=== PATIENT | male | born 1935 | race Caucasian/White ===

== ENCOUNTER 2020-04-19 13:16 | Inpatient (IN) | payer MEDICARE, BC, OTHER ==
--- NOTE | 2020-04-19 13:39 | EDM.PDOC ---
ED HPI GENERAL MEDICAL PROBLEM - General Chief Complaint: General Stated Complaint: [facility] Time Seen by Provider: 04/19/20 13:35 - History of Present Illness INITIAL COMMENTS - FREE TEXT/NARRATIVE: 84-year-old male presents the emergency room weakness. He is brought in by EMS. The patient's noticed him not walking as well as he normally does on Wednesday on Wednesday he lost his balance and fell no apparent injury from that but he has been weak and has had difficulty with ambulation since Wednesday. The patient has a history of a stroke with persistent left-sided weakness. He is got a left- sided foot drop and wears a brace for this. It sounds like the weakness seems to be more on the right side over this last week. Patient has not had any chest pain breathing difficulties or shortness of breath. - Related Data Allergies Allergy/AdvReac Type Severity Reaction Status Date / Time No Known Allergies Allergy Verified 04/19/20 13:28 Home Meds: Home Meds Aspirin [Aspir 81] 81 mg PO DAILY 04/19/20 [History] Furosemide 40 mg PO DAILY 04/19/20 [History] Glimepiride 2 mg PO DAILY 04/19/20 [History] Oxybutynin 5 mg PO DAILY 04/19/20 [History] atorvaSTATin [Lipitor] 40 mg PO BEDTIME 04/19/20 [History] metFORMIN [Glucophage] 500 mg PO BIDMEALS 04/19/20 [History] Past Medical History HEENT History: Reports: Impaired Vision Respiratory History: Reports: None Gastrointestinal History: Reports: None Genitourinary History: Reports: None Musculoskeletal History: Reports: Other (See Below) Other Musculoskeletal History: Pt has weakness to the left side after a stroke 9 years ago. Pt wears a leg brace. Neurological History: Reports: CVA Psychiatric History: Reports: None Endocrine/Metabolic History: Reports: Diabetes, Type II Hematologic History: Reports: None Immunologic History: Reports: None Oncologic (Cancer) History: Reports: None Dermatologic History: Reports: None - Infectious Disease History Infectious Disease History: Reports: None - Past Surgical History Cardiovascular Surgical History: Reports: Other (See Below) Other Cardiovascular Surgeries/Procedures: Pt reports having open heart surgery after his stroke 9 years ago, unsure of why. Social & Family History - Tobacco Use Smoking Status *Q: Never Smoker - Caffeine Use Caffeine Use: Reports: None - Recreational Drug Use Recreational Drug Use: No ED ROS GENERAL - Review of Systems Review Of Systems: See Below Constitutional: Reports: Weakness. Denies: Fever, Chills, Malaise HEENT: Reports: No Symptoms Respiratory: Reports: No Symptoms Cardiovascular: Reports: No Symptoms Endocrine: Reports: No Symptoms GI/Abdominal: Reports: No Symptoms : Reports: No Symptoms Neurological: Reports: Gait Disturbance, Other (Increased weakness now on the right side). Denies: Confusion, Dizziness, Headache ED EXAM, GENERAL - Physical Exam Exam: See Below Exam Limited By: No Limitations General Appearance: Alert, No Apparent Distress, Other (He appears to have a irregular heartbeat on the monitor he is on supplemental oxygen as his O2 was 86% on room air he does not use oxygen at home) Eye Exam: Bilateral Eye: Normal Inspection Ears: Normal External Exam, Normal Canal, Hearing Grossly Normal, Normal TMs Nose: Normal Inspection, Normal Mucosa, No Blood Throat/Mouth: Normal Inspection, Normal Lips, Normal Oropharynx, Normal Voice, Other (Semi-dry mucosa). No: Normal Teeth (Is missing all his lower teeth) Head: Atraumatic, Normocephalic Respiratory/Chest: No Respiratory Distress, Lungs Clear, Normal Breath Sounds Cardiovascular: No Edema, No Murmur, Irregularly Irregular GI/Abdominal: Normal Bowel Sounds, Soft, Non-Tender Back Exam: Normal Inspection. No: CVA Tenderness (L), CVA Tenderness (R) Extremities: Other (He has obvious weakness on his left side and the foot drop however he can hold his leg up against gravity several inches off the bed and resist me trying to push it down on the right side he can raise his leg a little better than the left side and can hold some resistance to me trying to push it down upper extremities are equivocal) Neurological: Alert, Oriented, Normal Cognition, Other (He has an obvious ulnar drift on the left not on the right) Psychiatric: Normal Affect, Normal Mood Skin Exam: Warm, Dry, Intact EKG INTERPRETATION EKG Date: 04/19/20 Rhythm: A-Fib Albia: LAD-Left Albia Deviation P-Wave: Absent QRS: Other (Interventricular conduction delay inferior Q waves) ST-T: Other (Nonspecific nondiagnostic changes) QT: Normal Comparison: NA - No Prior EKG EKG Interpretation Comments: Abnormal Course - Vital Signs Last Recorded V/S: Last Vital Signs Temp 37.1 C 04/19/20 13:22 Pulse 75 04/19/20 13:22 Resp 20 04/19/20 13:22 BP 124/68 04/19/20 13:22 Pulse Ox 86 L 04/19/20 13:22 - Orders/Labs/Meds Orders: Active Orders 24 hr Category Date Time Status EKG Documentation Completion [RC] STAT Care 04/19/20 13:51 Active CORONAVIRUS COVID-19 TAVON [MOLEC] Stat Lab 04/19/20 17:45 Ordered UA RFX JESSEE AND CULT IF INDIC [URIN] Stat Lab 04/19/20 13:51 Ordered Lactated Ringers [Ringers, Lactated] 1,000 ml Med 04/19/20 17:30 Active IV ASDIRECTED Medication Orders Lactated Ringer's (Ringers, Lactated) 1,000 mls @ 100 mls/hr IV ASDIRECTED [facility] Labs: Laboratory Tests 04/19/20 04/19/20 04/19/20 Range/Units 14:22 14:22 14:22 WBC 4.47 (4.23-9.07) K/mm3 RBC 4.77 (4.63-6.08) M/mm3 Hgb 15.2 (13.7-17.5) gm/dl Hct 46.5 (40.1-51.0) % MCV 97.5 H (79.0-92.2) fl MCH 31.9 (25.7-32.2) pg MCHC 32.7 (32.2-35.5) g/dl RDW Std Deviation 49.9 H (35.1-43.9) fL Plt Count 65 L (163-337) K/mm3 MPV 9.4 (9.4-12.3) fl Neut % (Auto) 67.4 (34.0-67.9) % Lymph % (Auto) 12.5 L (21.8-53.1) % Slope % (Auto) 19.5 H (5.3-12.2) % Eos % (Auto) 0.2 L (0.8-7.0) Baso % (Auto) 0.2 (0.1-1.2) % Neut # (Auto) 3.01 (1.78-5.38) K/mm3 Lymph # (Auto) 0.56 L (1.32-3.57) K/mm3 Slope # (Auto) 0.87 H (0.30-0.82) K/mm3 Eos # (Auto) 0.01 L (0.04-0.54) K/mm3 Baso # (Auto) 0.01 (0.01-0.08) K/mm3 Manual Slide Review Abnormal smear PT 11.1 (9.7-12.0) SECONDS INR 1.02 APTT 28 (22-31) SECONDS Sodium 141 (136-145) mEq/L Potassium 4.6 (3.5-5.1) mEq/L Chloride 103 (98-107) mEq/L Carbon Dioxide 27 (21-32) mEq/L Anion Gap 15.6 H (5-15) BUN 39 H (7-18) mg/dL Creatinine 2.5 H (0.7-1.3) mg/dL Est Cr Clr Drug Dosing TNP Estimated GFR (MDRD) 25 (>60) mL/min BUN/Creatinine Ratio 15.6 (14-18) Glucose 172 H (83-115) mg/dL Calcium 8.9 (8.5-10.1) mg/dL Total Bilirubin 0.5 (0.2-1.0) mg/dL AST 43 H (15-37) U/L ALT 44 (16-63) U/L Alkaline Phosphatase 121 H (46-116) U/L Troponin I < 0.017 (0.00-0.056) ng/mL Total Protein 7.7 (6.4-8.2) g/dl Albumin 3.3 L (3.4-5.0) g/dl Globulin 4.4 gm/dL Albumin/Globulin Ratio 0.8 L (1-2) Meds: Medications Generic Name Dose Route Start Last Admin Trade Name Freq PRN Reason Stop Dose Admin Lactated Ringer's 1,000 mls @ 100 mls/hr 04/19/20 17:30 Ringers, Lactated IV ASDIRECTED [facility] - Re-Assessments/Exams Free Text/Narrative Re-Assessment/Exam: 04/19/20 14:10 New onset, starting Wednesday, weakness perceived to be on the right side. Fall on Wednesday no head injury thought to be due to losing his balance. No improvement on now right-sided weakness. We will check a head CT his pulse seems irregular it is unclear if he is got regular P waves on the monitor we will check an EKG. Check routine labs. 04/19/20 14:57 CT of the head was done and this shows some age-related changes but also shows a possible small subacute infarct in the right posterior parietal region. No evidence of intracranial hemorrhage or other acute finding suspected we will check a MRI of the brain and MRA if his GFR allows we might check cervical MRA. Chest x-ray does not reveal any problem. It is unclear to me why he is requiring a little bit of oxygen at this point. EKG does show A. fib he does not have a prior history of this. 04/19/20 17:42 MRI of the brain shows no diffusion abnormalities no evidence to suggest acute or subacute infarct. MRA of the brain shows mild atheromatous irregularity with slight narrowing on the left side otherwise no abnormalities. I did discuss this with Dr. 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 With the A. fib he recommends anticoagulation if this can safely be done. I discussed the patient's case with Dr. Zamora. Who agrees to excepting the patient for hydration therapy and further evaluation for his weakness patient will go to [facility] telemetry. Departure - Departure Time of Disposition: 17:41 Disposition: Refer to Observation Clinical Impression: Weakness, New onset atrial fibrillation, Acute on chronic renal insufficiency - Discharge Information Referrals: Tr Jones MD [Primary Care Provider] - Forms: ED Department Discharge Sepsis Event Note (ED) - Evaluation Sepsis Screening Result: No Definite Risk - Focused Exam Vital Signs: Vital Signs Temp Pulse Resp BP Pulse Ox 04/19/20 13:22 37.1 C 75 20 124/68 86 L - My Orders Last 24 Hours: My Active Orders 04/19/20 13:51 EKG Documentation Completion [RC] STAT UA RFX JESSEE AND CULT IF INDIC [URIN] Stat 04/19/20 17:30 Lactated Ringers [Ringers, Lactated] 1,000 ml IV ASDIRECTED 04/19/20 17:45 CORONAVIRUS COVID-19 TAVON [MOLEC] Stat - Assessment/Plan Last 24 Hours: My Active Orders 04/19/20 13:51 EKG Documentation Completion [RC] STAT UA RFX JESSEE AND CULT IF INDIC [URIN] Stat 04/19/20 17:30 Lactated Ringers [Ringers, Lactated] 1,000 ml IV ASDIRECTED 04/19/20 17:45 CORONAVIRUS COVID-19 TAVON [MOLEC] Stat
--- NOTE | 2020-04-19 14:22 | CR ---
Chest: Portable view of the chest was obtained. Comparison: Prior chest x-ray of 11/09/18. Heart size and mediastinum are within normal limits for portable technique. Lungs are clear with no acute parenchymal change. Previous sternotomy is noted. Mild scattered degenerative change partially visualized within the spine. Impression: 1. Findings as noted above. 2. Nothing acute is appreciated on portable chest x-ray. Diagnostic code #2 This report was dictated in MDT
--- NOTE | 2020-04-19 14:42 | CT ---
Head CT Technique: Multiple axial sections through the brain were obtained. Intravenous contrast was not utilized. Comparison: Prior head CT study of 09/17/11. Findings: Diminished density is noted within the posterior right parietal region. This could represent a subacute infarct. Other old infarct is noted within the right parietal convexity. Additional old white matter infarct is noted adjacent to the frontal horn of the right posterior frontal region. Diminished density is noted within the periventricular white matter compatible with small vessel ischemic demyelination change. Ventricles are moderately dilated. Sulci over the convexities are also prominent. No evidence of intracranial hemorrhage. No midline shift or mass-effect is seen. Bone window settings were reviewed. No acute calvarial finding is seen. Visualized mastoid sinuses and visualized paranasal sinuses show nothing acute. Impression: 1. Senescent change as noted above. 2. Possible small subacute infarct within the right posterior parietal region. 3. No intracranial hemorrhage or other acute finding is appreciated. Diagnostic code #3 This report was dictated in MDT
--- NOTE | 2020-04-19 16:11 | MR ---
MRI angiogram of brain Technique: [id number] MR angiogram sequence was obtained centered to the [place]. Multiple MIP images were obtained in multiple projections. Findings: Distal vertebral arteries and basilar artery are patent. Posterior cerebral arteries appear patent. Carotid siphon is patent. Middle and anterior cerebral arteries are patent. No focal stenosis or occlusion is seen. No discrete aneurysm is appreciated. There is mild irregularity within both A1 segments. Slight narrowing of the left A1 segment is seen. Impression: 1. A1 segments show mild atheromatous irregularity with slight narrowing on the left side. 2. Other portions of the MR angiogram study of the brain appear within normal limits. Diagnostic code #2 This report was dictated in MDT
--- NOTE | 2020-04-19 16:41 | MR ---
MRI brain Technique: T1 sagittal; T1, T2, T2 FLAIR and diffusion axial; T1 and T2 gradient echo coronal images were obtained. Comparison: Prior head CT study performed earlier on the same day as well as previous MRI brain exam of 10/20/18. Findings: Ventricles along the basal cisterns and sulci over convexities are moderately prominent. Old infarct is noted next to the right frontal horn of the lateral ventricle within the white matter. Old infarct is noted within the upper right parietal region. Diffuse increased signal is seen on the FLAIR sequence within the periventricular white matter which appears fairly stable from prior exam compatible with small vessel ischemic demyelination change. No new areas of abnormal signal are seen. No midline shift or mass-effect is seen. Normal signal void is seen within the major cerebral arteries within the skull base. No acute diffusion abnormalities are seen. Impression: 1. Senescent change as noted above which is stable from prior MRI of 10/20/18. 2. No acute diffusion abnormalities are seen. No evidence to suggest acute or subacute infarct. Diagnostic code #2 This report was dictated in MDT
[2020-04-19] MEDS: Lactated Ringers 1,000 ML IV SCH (17:51)
--- NOTE | 2020-04-19 20:25 | PCM.HP.2 ---
H&P History of Present Illness - General Date of Service: 04/19/20 Admit Problem/Dx: Admission Diagnosis/Problem Admission Diagnosis/Problem Weakness - History of Present Illness Initial Comments - Free Text/Narative: 84-year-old male who started developing weakness and shortness of breath approximately 1 week ago presents the emergency department with increasing weakness. Earlier this week he started having difficulty with ambulation per his . Patient states that on Wednesday he lost his balance and fell. Since Wednesday or Wednesday he has had a poor oral intake and has not been drinking or eating as much. He states he usually gets up twice a night to urinate and did not get up last night to urinate. Patient also states he usually drinks 2 beers a day but his last alcoholic beverage was 6 days ago. 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 Patient denies any chest pain or cough. He stopped tobacco 35 years ago. He has no history of atrial fibrillation. He did require oxygen following his CVA in 2010. In the emergency department patient was found to be in atrial fibrillation with a ventricular rate in the 70s. CT of the head showed possible small subacute infarct within the right posterior parietal region. A subsequent MRI of the brain and MRA showed no acute diffusion abnormalities. Old infarct was noted within the upper right parietal region. No evidence to suggest acute or subacute infarct. A1 segments show mild atheromatous irregularity and slight narrowing on the left side. In the emergency department: Blood pressure was 124/68 with respiratory rate of 20 and a pulse of 75. Pulse ox was also noted to be 86% on presentation. Initial labs: WBC 4.47, hemoglobin 15.2, platelet count 65,000. PT 11.1, INR 1.02, APTT 28. Sodium 141, potassium 4.6, chloride 103, bicarb 27, anion gap 15.6, BUN 39, creatinine 2.5, estimated GFR 25, troponin I less than 0.017, albumin 3.3. - Related Data Allergies/Adverse Reactions: Allergies Allergy/AdvReac Type Severity Reaction Status Date / Time No Known Allergies Allergy Verified 04/19/20 18:57 Home Medications: Home Meds Aspirin [Aspir 81] 81 mg PO DAILY 04/19/20 [History] Furosemide 40 mg PO DAILY 04/19/20 [History] Glimepiride 2 mg PO DAILY 04/19/20 [History] Oxybutynin 5 mg PO DAILY 04/19/20 [History] atorvaSTATin [Lipitor] 40 mg PO BEDTIME 04/19/20 [History] metFORMIN [Glucophage] 500 mg PO BIDMEALS 04/19/20 [History] Past Medical History HEENT History: Reports: Cataract, Impaired Vision Other HEENT History: wears glasses, upper dentures Respiratory History: Reports: SOB Gastrointestinal History: Reports: None Genitourinary History: Reports: None Musculoskeletal History: Reports: Other (See Below) Other Musculoskeletal History: Pt has weakness to the left side after a stroke 9 years ago. Pt wears a leg brace. Neurological History: Reports: CVA Psychiatric History: Reports: None Endocrine/Metabolic History: Reports: Diabetes, Type II Other Endocrine/Metabolic History: check blood sugar once a day Hematologic History: Reports: None Immunologic History: Reports: None Oncologic (Cancer) History: Reports: None Dermatologic History: Reports: None - Infectious Disease History Infectious Disease History: Reports: Measles, Mumps - Past Surgical History HEENT Surgical History: Reports: Cataract Surgery Cardiovascular Surgical History: Reports: Other (See Below) Other Cardiovascular Surgeries/Procedures: Pt reports having open heart surgery after his stroke 9 years ago, unsure of why. Social & Family History - Family History Family Medical History: Noncontributory - Tobacco Use Smoking Status *Q: Former Smoker Used Tobacco, but Quit: Yes Month/Year Tobacco Last Used: 1989 - Caffeine Use Caffeine Use: Reports: None - Recreational Drug Use Recreational Drug Use: No H&P Review of Systems - Review of Systems: Review Of Systems: Comprehensive ROS is negative, except as noted in HPI. Exam - Exam Exam: See Below - Vital Signs Vital Signs: Last Vital Signs Temp 98.7 F 04/19/20 13:22 Pulse 64 04/19/20 19:17 Resp 20 04/19/20 19:17 BP 124/51 L 04/19/20 19:17 Pulse Ox 90 L 04/19/20 19:17 Weight: 88.496 kg - Exam Quality Assessment: Supplemental Oxygen General: Alert, Oriented, 4 HEENT: Conjunctiva Clear, Hearing Intact. No: Mucosa Moist & [place] (dry) Neck: Supple, Trachea Midline, 2 Lungs: Wheezing (Right lower lung). No: Normal Respiratory Effort (Pursed lip breathing with slight increase in respiratory rate), Crackles, Rales Cardiovascular: Irregular Rhythm GI/Abdominal Exam: Normal Bowel Sounds, Soft, No Organomegaly, No Distention, No Abnormal Bruit, No Mass, Tender (Mild left lower quadrant tenderness) Extremities: Normal Inspection, Normal Range of Motion, Non-Tender, No Pedal Edema, Normal Capillary Refill Peripheral Pulses: 1+: Posterior Tibial (L), Posterior Tibial (R), Dorsalis Pedis (L), Dorsalis Pedis (R) Skin: Warm, Dry, Intact Neuro Extensive - Mental Status: Alert, Normal Cognition, Memory Intact Neuro Extensive - Motor, Sensory, Reflexes: 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) Psychiatric: Alert, Normal Affect, Normal Mood - Patient Data Lab Results Last 24 hrs: Laboratory Results - last 24 hr 04/19/20 04/19/20 04/19/20 Range/Units 14:22 14:22 14:22 WBC 4.47 (4.23-9.07) K/mm3 RBC 4.77 (4.63-6.08) M/mm3 Hgb 15.2 (13.7-17.5) gm/dl Hct 46.5 (40.1-51.0) % MCV 97.5 H (79.0-92.2) fl MCH 31.9 (25.7-32.2) pg MCHC 32.7 (32.2-35.5) g/dl RDW Std Deviation 49.9 H (35.1-43.9) fL Plt Count 65 L (163-337) K/mm3 MPV 9.4 (9.4-12.3) fl Neut % (Auto) 67.4 (34.0-67.9) % Lymph % (Auto) 12.5 L (21.8-53.1) % [place] % (Auto) 19.5 H (5.3-12.2) % Eos % (Auto) 0.2 L (0.8-7.0) Baso % (Auto) 0.2 (0.1-1.2) % Neut # (Auto) 3.01 (1.78-5.38) K/mm3 Lymph # (Auto) 0.56 L (1.32-3.57) K/mm3 [place] # (Auto) 0.87 H (0.30-0.82) K/mm3 Eos # (Auto) 0.01 L (0.04-0.54) K/mm3 Baso # (Auto) 0.01 (0.01-0.08) K/mm3 Manual Slide Review Abnormal smear PT 11.1 (9.7-12.0) SECONDS INR 1.02 APTT 28 (22-31) SECONDS Sodium 141 (136-145) mEq/L Potassium 4.6 (3.5-5.1) mEq/L Chloride 103 (98-107) mEq/L Carbon Dioxide 27 (21-32) mEq/L Anion Gap 15.6 H (5-15) BUN 39 H (7-18) mg/dL Creatinine 2.5 H (0.7-1.3) mg/dL Est Cr Clr Drug Dosing TNP Estimated GFR (MDRD) 25 (>60) mL/min BUN/Creatinine Ratio 15.6 (14-18) Glucose 172 H (83-115) mg/dL Calcium 8.9 (8.5-10.1) mg/dL Total Bilirubin 0.5 (0.2-1.0) mg/dL AST 43 H (15-37) U/L ALT 44 (16-63) U/L Alkaline Phosphatase 121 H (46-116) U/L Troponin I < 0.017 (0.00-0.056) ng/mL Total Protein 7.7 (6.4-8.2) g/dl Albumin 3.3 L (3.4-5.0) g/dl Globulin 4.4 gm/dL Albumin/Globulin Ratio 0.8 L (1-2) COVID-19 ([place]) (NEGATIVE) 04/19/20 Range/Units 17:54 WBC (4.23-9.07) K/mm3 RBC (4.63-6.08) M/mm3 Hgb (13.7-17.5) gm/dl Hct (40.1-51.0) % MCV (79.0-92.2) fl MCH (25.7-32.2) pg MCHC (32.2-35.5) g/dl RDW Std Deviation (35.1-43.9) fL Plt Count (163-337) K/mm3 MPV (9.4-12.3) fl Neut % (Auto) (34.0-67.9) % Lymph % (Auto) (21.8-53.1) % [place] % (Auto) (5.3-12.2) % Eos % (Auto) (0.8-7.0) Baso % (Auto) (0.1-1.2) % Neut # (Auto) (1.78-5.38) K/mm3 Lymph # (Auto) (1.32-3.57) K/mm3 [place] # (Auto) (0.30-0.82) K/mm3 Eos # (Auto) (0.04-0.54) K/mm3 Baso # (Auto) (0.01-0.08) K/mm3 Manual Slide Review PT (9.7-12.0) SECONDS INR APTT (22-31) SECONDS Sodium (136-145) mEq/L Potassium (3.5-5.1) mEq/L Chloride (98-107) mEq/L Carbon Dioxide (21-32) mEq/L Anion Gap (5-15) BUN (7-18) mg/dL Creatinine (0.7-1.3) mg/dL Est Cr Clr Drug Dosing Estimated GFR (MDRD) (>60) mL/min BUN/Creatinine Ratio (14-18) Glucose (83-115) mg/dL Calcium (8.5-10.1) mg/dL Total Bilirubin (0.2-1.0) mg/dL AST (15-37) U/L ALT (16-63) U/L Alkaline Phosphatase (46-116) U/L Troponin I (0.00-0.056) ng/mL Total Protein (6.4-8.2) g/dl Albumin (3.4-5.0) g/dl Globulin gm/dL Albumin/Globulin Ratio (1-2) COVID-19 ([place]) Negative (NEGATIVE) Result Diagrams: 04/20/20 05:23 04/20/20 05:23 EKG INTERPRETATION EKG Date: 04/19/20 Rhythm: A-Fib Rate (Beats/Min): 76 P-Wave: Absent QRS: Other (Q waves in leads II, III and aVF. Also Q waves in leads V1 and V2. Poor R wave progression with deep S waves in V5 and V6.) ST-T: Normal QT: Normal EKG Interpretation Comments: Atrial fibrillation with old inferior and anterior infarcts. Sepsis Event Note - Evaluation Sepsis Screening Result: No Definite Risk - Focused Exam Vital Signs: Vital Signs Temp Pulse Pulse Resp BP BP Pulse Ox 04/19/20 19:17 64 20 124/51 L 90 L 04/19/20 13:22 98.7 F 75 20 124/68 86 L Date Exam was Performed: 04/20/20 Time Exam was Performed: 10:16 Problem List Initiated/Reviewed/Updated: Yes Orders Last 24hrs: Active Orders 24 hr Category Date Time Status Patient Status [ADT] Routine ADT 04/19/20 18:27 Active Blood Glucose Check, Bedside [RC] QIDACANDBED Care 04/19/20 20:17 Ordered Oxygen Therapy [RC] PRN Care 04/19/20 20:14 Ordered Up With Assistance [RC] ASDIRECTED Care 04/19/20 20:14 Ordered VTE/DVT Education [RC] PER UNIT ROUTINE Care 04/19/20 20:14 Ordered Vital Signs [RC] Q4H Care 04/19/20 20:14 Ordered OT Evaluation and Treatment [CONS] Routine Cons 04/19/20 20:14 Ordered PT Evaluation and Treatment [CONS] Routine Cons 04/19/20 20:14 Ordered Consistent Carbohydrate Diet [DIET] Diet 04/19/20 Dinner Ordered Echo Comp wo Cont [US] Routine Exams 04/22/20 Ordered CBC WITH AUTO DIFF [HEME] AM Lab 04/20/20 05:11 Ordered COMPREHENSIVE METABOLIC PN,CMP [CHEM] AM Lab 04/20/20 05:11 Ordered D Dimer [D-DIMER QUANTITATIVE] [COAG] Routine Lab 04/19/20 20:23 Ordered GLYCOSYLATED HEMOGLOBIN,HGBA1C [CHEM] AM Lab 04/20/20 05:11 Ordered LIPID PANEL [CHEM] AM Lab 04/20/20 05:11 Ordered MAGNESIUM [CHEM] AM Lab 04/20/20 05:11 Ordered PRO B-TYPE NATRIUR PEPT,BNPPRO [CHEM] Routine Lab 04/19/20 20:23 Ordered TSH [CHEM] AM Lab 04/20/20 05:11 Ordered UA RFX JESSEE AND CULT IF INDIC [URIN] Stat Lab 04/19/20 13:51 Ordered Acetaminophen [Tylenol] Med 04/19/20 20:14 Ordered 650 mg PO Q4H PRN Apixaban [Eliquis] Med 04/19/20 21:00 Ordered 2.5 mg PO BID Aspirin [Halfprin] Med 04/20/20 09:00 Ordered 81 mg PO DAILY Insulin Lispro [HumaLOG] Med 04/19/20 22:00 Ordered See Protocol SUBCUT QIDACANDBED Lactated Ringers [Ringers, Lactated] 1,000 ml Med 04/19/20 17:30 Active IV ASDIRECTED Oxybutynin Med 04/20/20 09:00 Ordered 5 mg PO DAILY atorvaSTATin Med 04/19/20 21:00 Ordered 40 mg PO BEDTIME Resuscitation Status Routine Resus Stat 04/19/20 20:14 Ordered Medication Orders Acetaminophen (Tylenol) 650 mg PO Q4H PRN PRN Reason: Pain (Mild 1-3)/fever Apixaban (Eliquis) 2.5 mg PO BID B[facility] Aspirin (Halfprin) 81 mg PO DAILY [facility] Lactated Ringer's (Ringers, Lactated) 1,000 mls @ 100 mls/hr IV ASDIRECTED BECKIE Last Admin: 04/19/20 17:51 Dose: 100 mls/hr Documented by: FOUZIA Insulin Human Lispro (Humalog) 0 unit SUBCUT QIDACANDBED [facility]; Protocol Non-Formulary Medication (Atorvastatin) 40 mg PO BEDTIME BECKIE Oxybutynin Chloride (Oxybutynin) 5 mg PO DAILY [facility] Assessment/Plan Comment:: Assessment * 84-year-old male with increasing weakness and new onset atrial fibrillation. * Increasing weakness over the last week with shortness of breath. * Ventricular rate is controlled in the 70s. * On no rate controlling medications. * Positive d-dimer * D-dimer 7.15 * Possible VTE versus pulmonary embolism * Significant renal dysfunction making CTA relatively contraindicated * Elevated proBNP * proBNP 838 * No history of heart failure or hypertension * Pulmonary exam shows wheezes without rales or crackles * Chest x-ray shows a normal heart size and lungs are clear * Patient is on furosemide 40 mg daily per history for unknown reason * Hypoxemia * History of smoking with tobacco cessation approximately 35 years ago. 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 * Likely 1 of the causes of his increasing weakness over the last week. * On exam patient did breathe with pursed lips. * Requiring 2-3 L nasal cannula. * Acute renal injury * I do not have old records available to me, but emergency department provider stated that his records from [place] showed a creatinine of 1.2- 1.8 * Likely multifactorial including prerenal disease * Possibly artificially increasing proBNP and d-dimer * Started on IV fluids in the emergency department * Thrombocytopenia unknown cause * Patient states he does not know of any history of having low platelets * Platelets on admission 65,000 * Significant concern for pulmonary embolism * Patient does have hypoxemia with shortness of breath and a positive d- dimer. * CTA was not done in the emergency department because of concerns of worsening his renal insufficiency * Type 2 diabetes * On oral meds including metformin and glimepiride * Patient states morning blood sugars are usually in the low 100s Chronic: Left-sided lower extremity weakness secondary to a stroke in 2010, urinary incontinence Plan * Admit for observation with telemetry * FiO2 to keep SPO2 at 90% or greater * Continue IV fluids LR at 100 mL an hour * Start heparin drip. Give 5000 units IV bolus. * Patient does have thrombocytopenia of 65,000. At this time concern for VTE or PE is very high and risk of bleeding is outweighed by the risk of progressing clot. * Monitor PTT closely every 4 hours and monitor closely for bleeding. * When renal function improves will proceed with CTA * Echocardiogram ordered for Wednesday. * Follow CBC, CMP, magnesium * Hold glimepiride and metformin. * Fingerstick blood sugars 4 times daily * Sliding scale insulin, low-dose * Continue aspirin 81 mg daily * CODE STATUS: Full code - Mortality Measure Prognosis:: Poor
[2020-04-19] MEDS ORDERED: Apixaban 2.5 MG Tab PO SCH (21:00)
[2020-04-19] MEDS ORDERED: ATORVASTATIN 40 MG PO SCH (21:00)
[2020-04-19] MEDS ORDERED: Albuterol 0.083% 2.5 MG/3 ML Neb Soln NEB PRN (21:14)
[2020-04-19] MEDS ORDERED: Albuterol/Ipratropium 3.0-0.5 MG/3 ML Neb Soln NEB ONE (21:17)
[2020-04-19] MEDS ORDERED: Heparin Sodium 5,000 Units/ML Vial IVPUSH ONE (21:31)
[2020-04-19] MEDS ORDERED: Heparin Sodium/D5W 25,000 UNITS/500 ML BAG IV SCH (21:45)
[2020-04-19] MEDS: Insulin Lispro 100 Units/ML 3 ML Vial SUBCUT SCH (22:08)
[2020-04-20] MEDS: Lactated Ringers 1,000 ML IV SCH ×2 (05:01→13:26)
[2020-04-20] MEDS: Albuterol/Ipratropium 3.0-0.5 MG/3 ML Neb Soln NEB SCH ×3 (06:08→20:18)
[2020-04-20] MEDS ORDERED: Heparin Sodium/D5W 25,000 UNITS/500 ML BAG IV SCH (06:45)
[2020-04-20 07:30] LABS: HEMOGLOBIN A1C 7.8 % (4.50-6.20)
[2020-04-20] MEDS: Insulin Lispro 100 Units/ML 3 ML Vial SUBCUT SCH ×4 (07:30→21:04)
[2020-04-20] MEDS ORDERED: Iopamidol 755 Mg/ML 100 ML Bottle IVPUSH ONE (08:39)
[2020-04-20] MEDS ORDERED: Sodium Chloride 0.9% 10 ML Syringe FLUSH PRN (08:39)
[2020-04-20] MEDS ORDERED: Sodium Chloride 0.9% 100 ML IV SCH (08:45)
[2020-04-20] MEDS ORDERED: OXYBUTYNIN 5 MG PO SCH (09:00)
--- NOTE | 2020-04-20 09:53 | CT ---
CT chest Technique: Multiple axial sections were obtained from above the lung apices inferiorly through the lung bases. Intravenous contrast was utilized. Study has been performed as a CT pulmonary angiogram. Comparison: Prior chest x-ray of 04/19/20, no prior chest CT is available. Findings: Visualized upper abdominal structures shows no discrete abnormality. No pericardial thickening is seen. Coronary artery calcification seen. Atherosclerotic calcification is noted within the thoracic aorta and branch vessels. No aneurysm is seen. Mediastinum shows lymph nodes. Largest lymph node is slightly prominent at 2.1 cm which is most likely due to old inflammatory process as other lymph nodes are within normal limits. No axillary adenopathy is appreciated. Pulmonary arteries are fairly well opacified. No filling defects are seen to indicate pulmonary embolism. Large calcified nodule is noted within the left lung base compatible with granuloma. Increased parenchymal density within both lung bases most likely due to atelectasis, although difficult to exclude lower bilateral pneumonia. Other interstitial changes are seen most likely due to fibrosis. No additional parenchymal change is appreciated. Bone window settings were reviewed which shows no acute osseous finding. Previous sternotomy is noted. Several old rib fractures are seen which appears healed. Mild degenerative change is seen within the spine. Impression: 1. No findings of pulmonary embolism. 2. Increased density within both posterior lung bases which has the appearance of mostly atelectasis although difficult to completely exclude small areas of pneumonia. 3. Interstitial change most likely representing fibrosis. 4. Calcified nodule within the left lung base compatible with large granuloma. 5. Other findings as noted above believed to be nonacute. Diagnostic code #3 This report was dictated in MDT
[2020-04-20] MEDS ORDERED: Rosuvastatin 10 MG Tab PO SCH (10:00)
[2020-04-20] MEDS: Aspirin 81 MG Tab.EC PO SCH (10:09)
[2020-04-20] MEDS: Oxybutynin 5 MG Tab PO SCH (10:09)
--- NOTE | 2020-04-20 10:26 | PCM.PN ---
- General Info Date of Service: 04/20/20 Admission Dx/Problem (Free Text): Admission Diagnosis/Problem Admission Diagnosis/Problem Weakness Subjective Update: Patient is without any significant complaints this morning. He denies any shortness of breath, although he is laying in bed with pursed lip breathing. He has been requiring increasing amount of FiO2 to keep his oxygen saturations in the low 90s. Patient's APTT increased to over 139 and his heparin was held. When it was going to be restarted patient had an episode of hematemesis and repeat APTT at that time was 54. Decision was made to hold heparin and proceed with CTA of the chest. Functional Status: Reports: Pain Controlled - Review of Systems General: Reports: No Symptoms HEENT: Reports: No Symptoms Pulmonary: Reports: Hemoptysis Cardiovascular: Reports: No Symptoms Gastrointestinal: Reports: No Symptoms Neurological: Reports: No Symptoms Psychiatric: Reports: No Symptoms - Patient Data Vitals - Most Recent: Last Vital Signs Temp 99.1 F 04/20/20 08:23 Pulse 33 L 04/20/20 08:23 Resp 18 04/20/20 04:47 BP 124/55 L 04/20/20 08:22 Pulse Ox 89 L 04/20/20 08:23 Weight - Most Recent: 88.496 kg I&O - Last 24 Hours: Intake & Output 04/19/20 04/20/20 04/20/20 22:59 06:59 14:59 Intake Total 1506 Output Total 500 Balance 1006 Imaging Impressions - Last 24 Hours: CTA chest: 1. No findings of pulmonary embolism 2. Increased density within both posterior lung bases which has the appearance of mostly atelectasis although difficult to completely exclude small areas of pneumonia. 3. Interstitial changes most likely representing fibrosis. 4. Calcified nodule within the left lung base compatible with large granuloma. 5. Other findings as noted in full report believed to be nonacute. Lab Results Last 24 Hours: Laboratory Results - last 24 hr 04/19/20 04/19/20 04/19/20 Range/Units 14:22 14:22 14:22 WBC 4.47 (4.23-9.07) K/mm3 RBC 4.77 (4.63-6.08) M/mm3 Hgb 15.2 (13.7-17.5) gm/dl Hct 46.5 (40.1-51.0) % MCV 97.5 H (79.0-92.2) fl MCH 31.9 (25.7-32.2) pg MCHC 32.7 (32.2-35.5) g/dl RDW Std Deviation 49.9 H (35.1-43.9) fL Plt Count 65 L (163-337) K/mm3 MPV 9.4 (9.4-12.3) fl Neut % (Auto) 67.4 (34.0-67.9) % Lymph % (Auto) 12.5 L (21.8-53.1) % [place] % (Auto) 19.5 H (5.3-12.2) % Eos % (Auto) 0.2 L (0.8-7.0) Baso % (Auto) 0.2 (0.1-1.2) % Neut # (Auto) 3.01 (1.78-5.38) K/mm3 Lymph # (Auto) 0.56 L (1.32-3.57) K/mm3 [place] # (Auto) 0.87 H (0.30-0.82) K/mm3 Eos # (Auto) 0.01 L (0.04-0.54) K/mm3 Baso # (Auto) 0.01 (0.01-0.08) K/mm3 Manual Slide Review Abnormal smear PT 11.1 (9.7-12.0) SECONDS INR 1.02 APTT 28 (22-31) SECONDS D-Dimer, Quantitative (0.19-0.50) mg/L Sodium 141 (136-145) mEq/L Potassium 4.6 (3.5-5.1) mEq/L Chloride 103 (98-107) mEq/L Carbon Dioxide 27 (21-32) mEq/L Anion Gap 15.6 H (5-15) BUN 39 H (7-18) mg/dL Creatinine 2.5 H (0.7-1.3) mg/dL Est Cr Clr Drug Dosing TNP Estimated GFR (MDRD) 25 (>60) mL/min BUN/Creatinine Ratio 15.6 (14-18) Glucose 172 H (83-115) mg/dL POC Glucose (83-110) mg/dL Hemoglobin A1c (4.50-6.20) % Calcium 8.9 (8.5-10.1) mg/dL Magnesium (1.8-2.4) mg/dl Total Bilirubin 0.5 (0.2-1.0) mg/dL AST 43 H (15-37) U/L ALT 44 (16-63) U/L Alkaline Phosphatase 121 H (46-116) U/L Troponin I < 0.017 (0.00-0.056) ng/mL NT-Pro-B Natriuret Pep (0-450) pg/mL Total Protein 7.7 (6.4-8.2) g/dl Albumin 3.3 L (3.4-5.0) g/dl Globulin 4.4 gm/dL Albumin/Globulin Ratio 0.8 L (1-2) Triglycerides (<150) mg/dL Cholesterol (<200) mg/dL LDL Cholesterol Direct (<100) mg/dL HDL Cholesterol (40-59) mg/dL TSH 3rd Generation (0.358-3.74) uIU/mL Urine Color (Yellow) Urine Appearance (Clear) Urine pH (5.0-8.0) Ur Specific [place] (1.005-1.030) Urine Protein (Negative) Urine Glucose (UA) (Negative) Urine Ketones (Negative) Urine Occult Blood (Negative) Urine Nitrite (Negative) Urine Bilirubin (Negative) Urine Urobilinogen (0.2-1.0) Ur Leukocyte Esterase (Negative) Urine RBC (0-5) /hpf Urine WBC (0-5) /hpf Ur Squamous Epith Cells (0-5) /hpf Urine Bacteria (FEW) /hpf Urine Mucus (FEW) /hpf COVID-19 ([place]) (NEGATIVE) 04/19/20 04/19/20 04/19/20 Range/Units 17:54 20:35 20:35 WBC (4.23-9.07) K/mm3 RBC (4.63-6.08) M/mm3 Hgb (13.7-17.5) gm/dl Hct (40.1-51.0) % MCV (79.0-92.2) fl MCH (25.7-32.2) pg MCHC (32.2-35.5) g/dl RDW Std Deviation (35.1-43.9) fL Plt Count (163-337) K/mm3 MPV (9.4-12.3) fl Neut % (Auto) (34.0-67.9) % Lymph % (Auto) (21.8-53.1) % [place] % (Auto) (5.3-12.2) % Eos % (Auto) (0.8-7.0) Baso % (Auto) (0.1-1.2) % Neut # (Auto) (1.78-5.38) K/mm3 Lymph # (Auto) (1.32-3.57) K/mm3 [place] # (Auto) (0.30-0.82) K/mm3 Eos # (Auto) (0.04-0.54) K/mm3 Baso # (Auto) (0.01-0.08) K/mm3 Manual Slide Review PT (9.7-12.0) SECONDS INR APTT (22-31) SECONDS D-Dimer, Quantitative 7.15 H (0.19-0.50) mg/L Sodium (136-145) mEq/L Potassium (3.5-5.1) mEq/L Chloride (98-107) mEq/L Carbon Dioxide (21-32) mEq/L Anion Gap (5-15) BUN (7-18) mg/dL Creatinine (0.7-1.3) mg/dL Est Cr Clr Drug Dosing Estimated GFR (MDRD) (>60) mL/min BUN/Creatinine Ratio (14-18) Glucose (83-115) mg/dL POC Glucose (83-110) mg/dL Hemoglobin A1c (4.50-6.20) % Calcium (8.5-10.1) mg/dL Magnesium (1.8-2.4) mg/dl Total Bilirubin (0.2-1.0) mg/dL AST (15-37) U/L ALT (16-63) U/L Alkaline Phosphatase (46-116) U/L Troponin I (0.00-0.056) ng/mL NT-Pro-B Natriuret Pep 838 H (0-450) pg/mL Total Protein (6.4-8.2) g/dl Albumin (3.4-5.0) g/dl Globulin gm/dL Albumin/Globulin Ratio (1-2) Triglycerides (<150) mg/dL Cholesterol (<200) mg/dL LDL Cholesterol Direct (<100) mg/dL HDL Cholesterol (40-59) mg/dL TSH 3rd Generation (0.358-3.74) uIU/mL Urine Color (Yellow) Urine Appearance (Clear) Urine pH (5.0-8.0) Ur Specific [place] (1.005-1.030) Urine Protein (Negative) Urine Glucose (UA) (Negative) Urine Ketones (Negative) Urine Occult Blood (Negative) Urine Nitrite (Negative) Urine Bilirubin (Negative) Urine Urobilinogen (0.2-1.0) Ur Leukocyte Esterase (Negative) Urine RBC (0-5) /hpf Urine WBC (0-5) /hpf Ur Squamous Epith Cells (0-5) /hpf Urine Bacteria (FEW) /hpf Urine Mucus (FEW) /hpf COVID-19 ([place]) Negative (NEGATIVE) 04/19/20 04/19/20 04/19/20 Range/Units 21:49 22:58 23:10 WBC (4.23-9.07) K/mm3 RBC (4.63-6.08) M/mm3 Hgb (13.7-17.5) gm/dl Hct (40.1-51.0) % MCV (79.0-92.2) fl MCH (25.7-32.2) pg MCHC (32.2-35.5) g/dl RDW Std Deviation (35.1-43.9) fL Plt Count (163-337) K/mm3 MPV (9.4-12.3) fl Neut % (Auto) (34.0-67.9) % Lymph % (Auto) (21.8-53.1) % [place] % (Auto) (5.3-12.2) % Eos % (Auto) (0.8-7.0) Baso % (Auto) (0.1-1.2) % Neut # (Auto) (1.78-5.38) K/mm3 Lymph # (Auto) (1.32-3.57) K/mm3 [place] # (Auto) (0.30-0.82) K/mm3 Eos # (Auto) (0.04-0.54) K/mm3 Baso # (Auto) (0.01-0.08) K/mm3 Manual Slide Review PT (9.7-12.0) SECONDS INR APTT (22-31) SECONDS D-Dimer, Quantitative (0.19-0.50) mg/L Sodium (136-145) mEq/L Potassium (3.5-5.1) mEq/L Chloride (98-107) mEq/L Carbon Dioxide (21-32) mEq/L Anion Gap (5-15) BUN (7-18) mg/dL Creatinine (0.7-1.3) mg/dL Est Cr Clr Drug Dosing Estimated GFR (MDRD) (>60) mL/min BUN/Creatinine Ratio (14-18) Glucose (83-115) mg/dL POC Glucose 76 L 144 H (83-110) mg/dL Hemoglobin A1c (4.50-6.20) % Calcium (8.5-10.1) mg/dL Magnesium (1.8-2.4) mg/dl Total Bilirubin (0.2-1.0) mg/dL AST (15-37) U/L ALT (16-63) U/L Alkaline Phosphatase (46-116) U/L Troponin I (0.00-0.056) ng/mL NT-Pro-B Natriuret Pep (0-450) pg/mL Total Protein (6.4-8.2) g/dl Albumin (3.4-5.0) g/dl Globulin gm/dL Albumin/Globulin Ratio (1-2) Triglycerides (<150) mg/dL Cholesterol (<200) mg/dL LDL Cholesterol Direct (<100) mg/dL HDL Cholesterol (40-59) mg/dL TSH 3rd Generation (0.358-3.74) uIU/mL Urine Color Yellow (Yellow) Urine Appearance Clear (Clear) Urine pH 5.5 (5.0-8.0) Ur Specific [place] > or = 1.030 (1.005-1.030) Urine Protein 3+ H (Negative) Urine Glucose (UA) Negative (Negative) Urine Ketones Negative (Negative) Urine Occult Blood 2+ H (Negative) Urine Nitrite Negative (Negative) Urine Bilirubin Negative (Negative) Urine Urobilinogen 0.2 (0.2-1.0) Ur Leukocyte Esterase Negative (Negative) Urine RBC 5-10 H (0-5) /hpf Urine WBC 0-5 (0-5) /hpf Ur Squamous Epith Cells 0-5 (0-5) /hpf Urine Bacteria Few (FEW) /hpf Urine Mucus Few (FEW) /hpf COVID-19 ([place]) (NEGATIVE) 04/20/20 04/20/20 04/20/20 Range/Units 04:06 05:23 05:23 WBC 4.12 L (4.23-9.07) K/mm3 RBC 4.44 L (4.63-6.08) M/mm3 Hgb 14.3 (13.7-17.5) gm/dl Hct 43.6 (40.1-51.0) % MCV 98.2 H (79.0-92.2) fl MCH 32.2 (25.7-32.2) pg MCHC 32.8 (32.2-35.5) g/dl RDW Std Deviation 50.1 H (35.1-43.9) fL Plt Count 51 L (163-337) K/mm3 MPV 9.9 (9.4-12.3) fl Neut % (Auto) 62.2 (34.0-67.9) % Lymph % (Auto) 17.7 L (21.8-53.1) % [place] % (Auto) 19.2 H (5.3-12.2) % Eos % (Auto) 0.5 L (0.8-7.0) Baso % (Auto) 0.2 (0.1-1.2) % Neut # (Auto) 2.56 (1.78-5.38) K/mm3 Lymph # (Auto) 0.73 L (1.32-3.57) K/mm3 [place] # (Auto) 0.79 (0.30-0.82) K/mm3 Eos # (Auto) 0.02 L (0.04-0.54) K/mm3 Baso # (Auto) 0.01 (0.01-0.08) K/mm3 Manual Slide Review Abnormal smear PT (9.7-12.0) SECONDS INR APTT > 139 H* (22-31) SECONDS D-Dimer, Quantitative (0.19-0.50) mg/L Sodium 141 (136-145) mEq/L Potassium 4.4 (3.5-5.1) mEq/L Chloride 105 (98-107) mEq/L Carbon Dioxide 27 (21-32) mEq/L Anion Gap 13.4 (5-15) BUN 37 H (7-18) mg/dL Creatinine 2.1 H (0.7-1.3) mg/dL Est Cr Clr Drug Dosing 24.43 Estimated GFR (MDRD) 30 (>60) mL/min BUN/Creatinine Ratio 17.6 (14-18) Glucose 111 (83-115) mg/dL POC Glucose (83-110) mg/dL Hemoglobin A1c (4.50-6.20) % Calcium 8.3 L (8.5-10.1) mg/dL Magnesium 2.1 (1.8-2.4) mg/dl Total Bilirubin 0.5 (0.2-1.0) mg/dL AST 41 H (15-37) U/L ALT 39 (16-63) U/L Alkaline Phosphatase 104 (46-116) U/L Troponin I (0.00-0.056) ng/mL NT-Pro-B Natriuret Pep (0-450) pg/mL Total Protein 7.1 (6.4-8.2) g/dl Albumin 3.0 L (3.4-5.0) g/dl Globulin 4.1 gm/dL Albumin/Globulin Ratio 0.7 L (1-2) Triglycerides 62 (<150) mg/dL Cholesterol 96 (<200) mg/dL LDL Cholesterol Direct 61 (<100) mg/dL HDL Cholesterol 29.0 L (40-59) mg/dL TSH 3rd Generation 1.309 (0.358-3.74) uIU/mL Urine Color (Yellow) Urine Appearance (Clear) Urine pH (5.0-8.0) Ur Specific [place] (1.005-1.030) Urine Protein (Negative) Urine Glucose (UA) (Negative) Urine Ketones (Negative) Urine Occult Blood (Negative) Urine Nitrite (Negative) Urine Bilirubin (Negative) Urine Urobilinogen (0.2-1.0) Ur Leukocyte Esterase (Negative) Urine RBC (0-5) /hpf Urine WBC (0-5) /hpf Ur Squamous Epith Cells (0-5) /hpf Urine Bacteria (FEW) /hpf Urine Mucus (FEW) /hpf COVID-19 ([place]) (NEGATIVE) 04/20/20 04/20/20 04/20/20 Range/Units 05:23 07:04 07:37 WBC (4.23-9.07) K/mm3 RBC (4.63-6.08) M/mm3 Hgb (13.7-17.5) gm/dl Hct (40.1-51.0) % MCV (79.0-92.2) fl MCH (25.7-32.2) pg MCHC (32.2-35.5) g/dl RDW Std Deviation (35.1-43.9) fL Plt Count (163-337) K/mm3 MPV (9.4-12.3) fl Neut % (Auto) (34.0-67.9) % Lymph % (Auto) (21.8-53.1) % [place] % (Auto) (5.3-12.2) % Eos % (Auto) (0.8-7.0) Baso % (Auto) (0.1-1.2) % Neut # (Auto) (1.78-5.38) K/mm3 Lymph # (Auto) (1.32-3.57) K/mm3 [place] # (Auto) (0.30-0.82) K/mm3 Eos # (Auto) (0.04-0.54) K/mm3 Baso # (Auto) (0.01-0.08) K/mm3 Manual Slide Review PT (9.7-12.0) SECONDS INR APTT 54 H (22-31) SECONDS D-Dimer, Quantitative (0.19-0.50) mg/L Sodium (136-145) mEq/L Potassium (3.5-5.1) mEq/L Chloride (98-107) mEq/L Carbon Dioxide (21-32) mEq/L Anion Gap (5-15) BUN (7-18) mg/dL Creatinine (0.7-1.3) mg/dL Est Cr Clr Drug Dosing Estimated GFR (MDRD) (>60) mL/min BUN/Creatinine Ratio (14-18) Glucose (83-115) mg/dL POC Glucose 126 H (83-110) mg/dL Hemoglobin A1c 7.80 H (4.50-6.20) % Calcium (8.5-10.1) mg/dL Magnesium (1.8-2.4) mg/dl Total Bilirubin (0.2-1.0) mg/dL AST (15-37) U/L ALT (16-63) U/L Alkaline Phosphatase (46-116) U/L Troponin I (0.00-0.056) ng/mL NT-Pro-B Natriuret Pep (0-450) pg/mL Total Protein (6.4-8.2) g/dl Albumin (3.4-5.0) g/dl Globulin gm/dL Albumin/Globulin Ratio (1-2) Triglycerides (<150) mg/dL Cholesterol (<200) mg/dL LDL Cholesterol Direct (<100) mg/dL HDL Cholesterol (40-59) mg/dL TSH 3rd Generation (0.358-3.74) uIU/mL Urine Color (Yellow) Urine Appearance (Clear) Urine pH (5.0-8.0) Ur Specific [place] (1.005-1.030) Urine Protein (Negative) Urine Glucose (UA) (Negative) Urine Ketones (Negative) Urine Occult Blood (Negative) Urine Nitrite (Negative) Urine Bilirubin (Negative) Urine Urobilinogen (0.2-1.0) Ur Leukocyte Esterase (Negative) Urine RBC (0-5) /hpf Urine WBC (0-5) /hpf Ur Squamous Epith Cells (0-5) /hpf Urine Bacteria (FEW) /hpf Urine Mucus (FEW) /hpf COVID-19 ([place]) (NEGATIVE) Med Orders - Current: Current Medications Acetaminophen (Tylenol) 650 mg PO Q4H PRN PRN Reason: Pain (Mild 1-3)/fever Albuterol (Proventil Neb Soln) 2.5 mg NEB Q2H PRN PRN Reason: Shortness of Breath Albuterol/Ipratropium (Duoneb 3.0-0.5 Mg/3 Ml) 3 ml NEB Q8HRRT [facility] Last Admin: 04/20/20 06:08 Dose: 3 ml Documented by: Aspirin (Halfprin) 81 mg PO DAILY [facility] Last Admin: 04/20/20 10:09 Dose: 81 mg Documented by: Lactated Ringer's (Ringers, Lactated) 1,000 mls @ 100 mls/hr IV ASDIRECTED [facility] Last Infusion: 04/20/20 09:08 Dose: 150 mls/hr Documented by: Sodium Chloride (Normal Saline) 100 mls @ 75 mls/hr IV ASDIRECTED [facility] Stop: 04/20/20 12:00 Last Admin: 04/20/20 09:11 Dose: 75 mls/hr Documented by: Insulin Human Lispro (Humalog) 0 unit SUBCUT QIDACANDBED [facility]; Protocol Last Admin: 04/20/20 07:30 Dose: Not Given Documented by: Oxybutynin Chloride (Oxybutynin) 5 mg PO DAILY [facility] Last Admin: 04/20/20 10:09 Dose: 5 mg Documented by: Rosuvastatin Calcium (Crestor) 10 mg PO DAILY [facility] Sodium Chloride (Saline Flush) 10 ml FLUSH ONETIME PRN PRN Reason: IV FLUSH Stop: 04/20/20 12:00 Last Admin: 04/20/20 09:11 Dose: 10 ml Documented by: Discontinued Medications Albuterol/Ipratropium (Duoneb 3.0-0.5 Mg/3 Ml) 3 ml NEB ONETIME ONE Stop: 04/19/20 21:18 Last Admin: 04/19/20 22:05 Dose: 3 ml Documented by: Apixaban (Eliquis) 2.5 mg PO BID [facility] Last Admin: 04/19/20 22:37 Dose: Not Given Documented by: Heparin Sodium (Porcine) (Heparin Sodium) 5,000 units IVPUSH ONETIME ONE Stop: 04/19/20 21:32 Last Admin: 04/19/20 22:37 Dose: 5,000 units Documented by: Heparin Sodium/Dextrose (Heparin 25,000 Units In D5w 500 Ml) 25,000 units in 500 mls @ 19.469 mls/hr IV TITRATE [facility]; Protocol Last Admin: 04/19/20 22:42 Dose: 11 units/kg/hr, 19.469 mls/hr Documented by: Heparin Sodium/Dextrose (Heparin 25,000 Units In D5w 500 Ml) 25,000 units in 500 mls @ 8.868 mls/hr IV TITRATE [facility]; Protocol Iopamidol (Isovue-370 (76%)) 100 ml IVPUSH ONETIME ONE Stop: 04/20/20 08:40 Last Admin: 04/20/20 09:11 Dose: 100 ml Documented by: Oxybutynin Chloride (Oxybutynin) 5 mg PO DAILY [facility] Atorvastatin 40 Mg Patient's Own Med 0 each PO BEDTIME [facility] Last Admin: 04/20/20 08:32 Dose: Not Given Documented by: - Exam General: Alert, Oriented HEENT: Pupils Equal, Mucous Membr. Moist/[place] Neck: Supple Lungs: Rhonchi (Mild bibasilar). No: Normal Respiratory Effort (Pursed lip breathing) GI/Abdominal Exam: Normal Bowel Sounds, Soft, Non-Tender, No Organomegaly, No Distention Extremities: Normal Inspection, Normal Range of Motion, Non-Tender, No Pedal Edema, Normal Capillary Refill Peripheral Pulses: 1+: Posterior Tibial (L), Posterior Tibial (R), Dorsalis Pedis (L), Dorsalis Pedis (R) Skin: Warm, Dry, Intact Neurological: No New Focal Deficit Psy/Mental Status: Alert, Normal Affect, Normal Mood Sepsis Event Note - Evaluation Sepsis Screening Result: No Definite Risk - Focused Exam Vital Signs: Vital Signs Temp Temp Pulse Resp BP Pulse Ox Pulse Ox 04/20/20 08:23 99.1 F 33 L 89 L 04/20/20 08:22 65 124/55 L 89 L 04/20/20 08:00 100.0 F 04/20/20 06:09 90 L 04/20/20 04:47 98.2 F 77 18 120/63 95 04/19/20 22:41 98.2 F 76 20 130/54 L 93 L Date Exam was Performed: 04/20/20 Time Exam was Performed: 14:46 - Problem List Review Problem List Initiated/Reviewed/Updated: Yes - My Orders Last 24 Hours: My Active Orders 04/19/20 Dinner Consistent Carbohydrate Diet [DIET] 04/19/20 20:14 Oxygen Therapy [RC] PRN Up With Assistance [RC] ASDIRECTED VTE/DVT Education [RC] PER UNIT ROUTINE Vital Signs [RC] Q4HR OT Evaluation and Treatment [CONS] Routine PT Evaluation and Treatment [CONS] Routine Acetaminophen [Tylenol] 650 mg PO Q4H PRN Resuscitation Status Routine 04/19/20 20:17 Blood Glucose Check, Bedside [RC] QIDACANDBED 04/19/20 21:14 Albuterol [Proventil Neb Soln] 2.5 mg NEB Q2H PRN 04/19/20 21:16 RT Aerosol Therapy [RC] ASDIRECTED 04/19/20 22:00 Insulin Lispro [HumaLOG] See Protocol SUBCUT QIDACANDBED 04/20/20 06:00 Albuterol/Ipratropium [DuoNeb 3.0-0.5 MG/3 ML] 3 ml NEB Q8HRRT 04/20/20 08:22 Patient Status [ADT] Routine 04/20/20 08:39 Sodium Chloride 0.9% [Saline Flush] 10 ml FLUSH ONETIME PRN 04/20/20 08:45 Sodium Chloride 0.9% [Normal Saline] 100 ml IV ASDIRECTED 04/20/20 09:00 Aspirin [Halfprin] 81 mg PO DAILY 04/20/20 09:24 ABG [BLOOD GAS ARTERIAL] [BG] Urgent 04/20/20 09:58 Venous Doppler Lwr Ext Bi [US] Routine 04/20/20 10:00 Oxybutynin 5 mg PO DAILY Rosuvastatin [Crestor] 10 mg PO DAILY 04/20/20 10:10 PROCALCITONIN [REF] Routine 04/20/20 16:00 BASIC METABOLIC PANEL,BMP [CHEM] Routine 04/21/20 05:11 CBC W/O DIFF,HEMOGRAM [HEME] AM CMP [COMPREHENSIVE METABOLIC PN,CMP] [CHEM] AM MAGNESIUM [CHEM] AM PHOSPHORUS [CHEM] AM 04/22/20 Echo Comp wo Cont [US] Routine 04/22/20 05:11 CBC W/O DIFF,HEMOGRAM [HEME] AM 04/23/20 05:11 CBC W/O DIFF,HEMOGRAM [HEME] AM 04/24/20 05:11 CBC W/O DIFF,HEMOGRAM [HEME] AM 04/25/20 05:11 CBC W/O DIFF,HEMOGRAM [HEME] AM - Assessment Assessment:: April 19, 2020 -day of admission * 84-year-old male with increasing weakness and new onset atrial fibrillation. * Increasing weakness over the last week with shortness of breath. * Ventricular rate is controlled in the 70s. * On no rate controlling medications. * Positive d-dimer * D-dimer 7.15 * Possible VTE versus pulmonary embolism * Significant renal dysfunction making CTA relatively contraindicated * Elevated proBNP * proBNP 838 * No history of heart failure or hypertension * Pulmonary exam shows wheezes without rales or crackles * Chest x-ray shows a normal heart size and lungs are clear * Patient is on furosemide 40 mg daily per history for unknown reason * Hypoxemia * History of smoking with tobacco cessation approximately 35 years ago. 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 * Likely 1 of the causes of his increasing weakness over the last week. * On exam patient did breathe with pursed lips. * Requiring 2-3 L nasal cannula. * Acute renal injury * I do not have old records available to me, but emergency department provid er stated that his records from [place] showed a creatinine of 1.2-1.8 * Likely multifactorial including prerenal disease * Possibly artificially increasing proBNP and d-dimer * Started on IV fluids in the emergency department * Thrombocytopenia unknown cause * Patient states he does not know of any history of having low platelets * Platelets on admission 65,000 * Significant concern for pulmonary embolism * Patient does have hypoxemia with shortness of breath and a positive d- dimer. * CTA was not done in the emergency department because of concerns of worsening his renal insufficiency * Type 2 diabetes * On oral meds including metformin and glimepiride * Patient states morning blood sugars are usually in the low 100s April 20, 2020 * Patient with worsening hypoxemia overnight requiring high flow nasal cannula. * CTA of the chest done because of worsening hypoxemia. No pulmonary embolism. Findings consistent with posterior bibasilar atelectasis but difficult to co mpletely exclude small areas of pneumonia. Interstitial changes most likely representing fibrosis. * Atelectasis most likely cause of hypoxemia. He has had a low-grade temp of 100.0, but white count is normal. Atelectasis can cause a low-grade temperature. * Atrial fibrillation -patient had episode of hemoptysis with heparin. Platelet count is dropping. Ventricular rate has been controlled in the 60s and 70s. * Acute renal injury is improving, but did receive IV contrast. Estimated GFR increased to 30 and creatinine decreased to 2.1 * Bilateral lower extremity Dopplers were negative for DVT. Elevated d-dimer does not appear to be secondary to clinically significant VTE or pulmonary embolism. * Thrombocytopenia -platelets decreased from 65,000-51,000. * Type 2 diabetes -blood sugars ranging from 76-1 70s. Hemoglobin A1c 7.8. Chronic: Left-sided lower extremity weakness secondary to a stroke in 2010, urinary incontinence - Plan Plan:: Plan * Admit for observation with telemetry * FiO2 to keep SPO2 at 90% or greater. Currently on high flow nasal cannula. * If temperature of 101 lind culture and start antibiotics. * Continue IV fluids LR at 100 mL an hour. Will DC when taking adequate orally. * Anticoagulation stopped secondary to dropping platelets and episode of hemoptysis. * Echocardiogram ordered for Wednesday. * Repeat BMP and CBC this afternoon. * Follow CBC, CMP, magnesium * Get procalcitonin * Hold glimepiride and metformin. * Fingerstick blood sugars 4 times daily * Sliding scale insulin, low-dose * Continue aspirin 81 mg daily * CODE STATUS: Full code * VTE prophylaxis with SCDs.
[2020-04-20] MEDS ORDERED: Furosemide 40 MG/4 ML VIAL IVPUSH ONE (10:28)
--- NOTE | 2020-04-20 21:35 | PCM.SN.2 ---
- Free Text/Narrative Note: Patient's heart rate has been in the 40s most of the day. Last night on telemetry he was also in the 40s. Review of his telemetry appears patient was in sinus bradycardia and converted from atrial fibrillation. Blood pressures have been stable with the most recent blood pressure 123/47. Repeat EKG showed sinus atrial bradycardia with persistent Q waves in the inferior and anterior leads. Change from previous EKG is rate and sinus atrial bradycardia. Patient has dizziness or lightheadedness, but getting him into a chair was difficult because of weakness. He did have a 7 beat run of V. tach. Plan to monitor overnight. Continue high flow nasal cannula or changed to CPAP if oxygenation is not maintained on high flow nasal cannula.
[2020-04-21] MEDS: Lactated Ringers 1,000 ML IV SCH (04:41)
[2020-04-21] MEDS: Albuterol/Ipratropium 3.0-0.5 MG/3 ML Neb Soln NEB SCH ×3 (05:46→20:51)
[2020-04-21] MEDS: Insulin Lispro 100 Units/ML 3 ML Vial SUBCUT SCH ×3 (07:32→18:01)
[2020-04-21] MEDS: Oxybutynin 5 MG Tab PO SCH (09:08)
[2020-04-21] MEDS: Aspirin 81 MG Tab.EC PO SCH (09:08)
[2020-04-21] MEDS: Rosuvastatin 10 MG Tab PO SCH (09:09)
--- NOTE | 2020-04-21 12:01 | CR ---
Pelvis and left hip: AP view of the pelvis was obtained as well as AP and frog-leg lateral view of the left hip. Comparison: No prior pelvis or hip exam is available. Mild joint space narrowing is seen superiorly within the left hip. Joint space within the right hip is preserved. Sacroiliac joints appear within normal limits. Minimal vascular calcification is noted. No acute fracture or dislocation is appreciated. Impression: 1. Findings as noted above. 2. Nothing acute is appreciated on AP pelvis or on 2 view left hip exam. Diagnostic code #2 This report was dictated in MDT
[2020-04-21] MEDS: Carboxymethylcellulose Sodium 1% Ophth Gel 15 ML Bottle EYEBOTH PRN (12:39)
--- NOTE | 2020-04-21 13:50 | US ---
Bilateral lower extremity deep venous ultrasound: Duplex and color Doppler evaluation was obtained of the right and left common femoral, proximal greater saphenous, superficial femoral, popliteal, posterior tibial and peroneal veins. Comparison: No prior venous imaging is available. Findings: Normal phasic flow, augmentation and compression is seen. Impression: 1. No evidence of deep venous thrombosis within the right or left lower extremities. Diagnostic code #1 This report was dictated in MDT I agree with preliminary report from jose, finalized on 04/20/20, 12:50 PM Central Daylight Time
[2020-04-21] MEDS ORDERED: Azithromycin 500 MG in Sodium Chloride 0.9% 250 ML IV ONE (13:57)
--- NOTE | 2020-04-21 14:18 | PCM.PN ---
- General Info Date of Service: 04/21/20 Admission Dx/Problem (Free Text): Admission Diagnosis/Problem Admission Diagnosis/Problem Weakness Subjective Update: Patient had an uneventful night. He tolerated CPAP overnight and his heart rate increased back into the 60s and 70s. EKG done this morning showed an irregular heart rate likely in A. fib, but also possibly sinus rhythm with supraventricular bigeminy. P waves are not well appreciated. Continued diffuse Q waves in the inferior and anterior leads. Overall patient states he is feeling well without any complaints. He is back on high flow nasal cannula at 60% FiO2 and 35 L/min. Oxygen saturations are in the low 90s. He is tolerating his diet well. Functional Status: Reports: Pain Controlled - Review of Systems General: Reports: No Symptoms HEENT: Reports: No Symptoms Pulmonary: Reports: No Symptoms Cardiovascular: Reports: No Symptoms Musculoskeletal: Reports: No Symptoms Psychiatric: Reports: No Symptoms - Patient Data Vitals - Most Recent: Last Vital Signs Temp 99.8 F 04/21/20 08:00 Pulse 60 04/21/20 12:37 Resp 20 04/21/20 04:33 BP 127/62 04/21/20 08:13 Pulse Ox 91 L 04/21/20 13:18 Weight - Most Recent: 88.36 kg I&O - Last 24 Hours: Intake & Output 04/20/20 04/21/20 04/21/20 22:59 06:59 14:59 Intake Total 2459 1150 120 Output Total 125 475 Balance 2334 675 120 Lab Results Last 24 Hours: Laboratory Results - last 24 hr 04/20/20 04/20/20 04/20/20 Range/Units 05:23 16:01 16:01 WBC 3.82 L (4.23-9.07) K/mm3 RBC 4.44 L (4.63-6.08) M/mm3 Hgb 14.2 (13.7-17.5) gm/dl Hct 43.2 (40.1-51.0) % MCV 97.3 H (79.0-92.2) fl MCH 32.0 (25.7-32.2) pg MCHC 32.9 (32.2-35.5) g/dl RDW Std Deviation 48.9 H (35.1-43.9) fL Plt Count 62 L (163-337) K/mm3 MPV 10.0 (9.4-12.3) fl Neut % (Auto) 64.4 (34.0-67.9) % Lymph % (Auto) 14.9 L (21.8-53.1) % [place]wey % (Auto) 19.4 H (5.3-12.2) % Eos % (Auto) 0.5 L (0.8-7.0) Baso % (Auto) 0.3 (0.1-1.2) % Neut # (Auto) 2.46 (1.78-5.38) K/mm3 Lymph # (Auto) 0.57 L (1.32-3.57) K/mm3 [place] # (Auto) 0.74 (0.30-0.82) K/mm3 Eos # (Auto) 0.02 L (0.04-0.54) K/mm3 Baso # (Auto) 0.01 (0.01-0.08) K/mm3 Manual Slide Review Abnormal smear Puncture Site ABG pH (7.35-7.45) ABG pCO2 (35.0-45.0) mmHg ABG pO2 (80.0-100.0) mmHg ABG HCO3 (22.0-26.0) meq/L ABG O2 Saturation (96.0-97.0) % ABG Base Excess (-2-2.0) A-a Gradient mmHg O2 Delivery Device Oxygen Flow Rate FiO2 (21.00-100.00) % Sodium 137 (136-145) mEq/L Potassium 4.3 (3.5-5.1) mEq/L Chloride 101 (98-107) mEq/L Carbon Dioxide 28 (21-32) mEq/L Anion Gap 12.3 (5-15) BUN 38 H (7-18) mg/dL Creatinine 2.2 H (0.7-1.3) mg/dL Est Cr Clr Drug Dosing 23.32 mL/min Estimated GFR (MDRD) 29 (>60) mL/min BUN/Creatinine Ratio 17.3 (14-18) Glucose 140 H (83-115) mg/dL POC Glucose (83-110) mg/dL Calcium 8.0 L (8.5-10.1) mg/dL Phosphorus (2.6-4.7) mg/dL Magnesium (1.8-2.4) mg/dl Total Bilirubin (0.2-1.0) mg/dL AST (15-37) U/L ALT (16-63) U/L Alkaline Phosphatase (46-116) U/L Troponin I (0.00-0.056) ng/mL Total Protein (6.4-8.2) g/dl Albumin (3.4-5.0) g/dl Globulin gm/dL Albumin/Globulin Ratio (1-2) Procalcitonin 0.27 H (<0.10) ng/mL 04/20/20 04/20/20 04/21/20 Range/Units 17:22 21:02 05:25 WBC 3.86 L (4.23-9.07) K/mm3 RBC 4.60 L (4.63-6.08) M/mm3 Hgb 14.9 (13.7-17.5) gm/dl Hct 45.2 (40.1-51.0) % MCV 98.3 H (79.0-92.2) fl MCH 32.4 H (25.7-32.2) pg MCHC 33.0 (32.2-35.5) g/dl RDW Std Deviation 50.7 H (35.1-43.9) fL Plt Count 55 L (163-337) K/mm3 MPV 9.8 (9.4-12.3) fl Neut % (Auto) (34.0-67.9) % Lymph % (Auto) (21.8-53.1) % [place] % (Auto) (5.3-12.2) % Eos % (Auto) (0.8-7.0) Baso % (Auto) (0.1-1.2) % Neut # (Auto) (1.78-5.38) K/mm3 Lymph # (Auto) (1.32-3.57) K/mm3 [place] # (Auto) (0.30-0.82) K/mm3 Eos # (Auto) (0.04-0.54) K/mm3 Baso # (Auto) (0.01-0.08) K/mm3 Manual Slide Review Puncture Site ABG pH (7.35-7.45) ABG pCO2 (35.0-45.0) mmHg ABG pO2 (80.0-100.0) mmHg ABG HCO3 (22.0-26.0) meq/L ABG O2 Saturation (96.0-97.0) % ABG Base Excess (-2-2.0) A-a Gradient mmHg O2 Delivery Device Oxygen Flow Rate FiO2 (21.00-100.00) % Sodium (136-145) mEq/L Potassium (3.5-5.1) mEq/L Chloride (98-107) mEq/L Carbon Dioxide (21-32) mEq/L Anion Gap (5-15) BUN (7-18) mg/dL Creatinine (0.7-1.3) mg/dL Est Cr Clr Drug Dosing mL/min Estimated GFR (MDRD) (>60) mL/min BUN/Creatinine Ratio (14-18) Glucose (83-115) mg/dL POC Glucose 103 153 H (83-110) mg/dL Calcium (8.5-10.1) mg/dL Phosphorus (2.6-4.7) mg/dL Magnesium (1.8-2.4) mg/dl Total Bilirubin (0.2-1.0) mg/dL AST (15-37) U/L ALT (16-63) U/L Alkaline Phosphatase (46-116) U/L Troponin I (0.00-0.056) ng/mL Total Protein (6.4-8.2) g/dl Albumin (3.4-5.0) g/dl Globulin gm/dL Albumin/Globulin Ratio (1-2) Procalcitonin (<0.10) ng/mL 04/21/20 04/21/20 04/21/20 Range/Units 05:25 05:54 06:54 WBC (4.23-9.07) K/mm3 RBC (4.63-6.08) M/mm3 Hgb (13.7-17.5) gm/dl Hct (40.1-51.0) % MCV (79.0-92.2) fl MCH (25.7-32.2) pg MCHC (32.2-35.5) g/dl RDW Std Deviation (35.1-43.9) fL Plt Count (163-337) K/mm3 MPV (9.4-12.3) fl Neut % (Auto) (34.0-67.9) % Lymph % (Auto) (21.8-53.1) % [place] % (Auto) (5.3-12.2) % Eos % (Auto) (0.8-7.0) Baso % (Auto) (0.1-1.2) % Neut # (Auto) (1.78-5.38) K/mm3 Lymph # (Auto) (1.32-3.57) K/mm3 [place] # (Auto) (0.30-0.82) K/mm3 Eos # (Auto) (0.04-0.54) K/mm3 Baso # (Auto) (0.01-0.08) K/mm3 Manual Slide Review Puncture Site Lt radial ABG pH 7.35 (7.35-7.45) ABG pCO2 51.7 H (35.0-45.0) mmHg ABG pO2 65.0 L (80.0-100.0) mmHg ABG HCO3 27.7 H (22.0-26.0) meq/L ABG O2 Saturation 89.8 L (96.0-97.0) % ABG Base Excess 1.6 (-2-2.0) A-a Gradient 328 mmHg O2 Delivery Device Cpap Oxygen Flow Rate 11.0 FiO2 64.00 (21.00-100.00) % Sodium 139 (136-145) mEq/L Potassium 4.7 (3.5-5.1) mEq/L Chloride 104 (98-107) mEq/L Carbon Dioxide 30 (21-32) mEq/L Anion Gap 9.7 (5-15) BUN 32 H (7-18) mg/dL Creatinine 2.1 H (0.7-1.3) mg/dL Est Cr Clr Drug Dosing 24.43 mL/min Estimated GFR (MDRD) 30 (>60) mL/min BUN/Creatinine Ratio 15.2 (14-18) Glucose 126 H (83-115) mg/dL POC Glucose 93 (83-110) mg/dL Calcium 8.2 L (8.5-10.1) mg/dL Phosphorus 3.6 (2.6-4.7) mg/dL Magnesium 2.3 (1.8-2.4) mg/dl Total Bilirubin 0.5 (0.2-1.0) mg/dL AST 41 H (15-37) U/L ALT 37 (16-63) U/L Alkaline Phosphatase 102 (46-116) U/L Troponin I 0.028 (0.00-0.056) ng/mL Total Protein 7.2 (6.4-8.2) g/dl Albumin 2.9 L (3.4-5.0) g/dl Globulin 4.3 gm/dL Albumin/Globulin Ratio 0.7 L (1-2) Procalcitonin (<0.10) ng/mL 04/21/20 Range/Units 11:31 WBC (4.23-9.07) K/mm3 RBC (4.63-6.08) M/mm3 Hgb (13.7-17.5) gm/dl Hct (40.1-51.0) % MCV (79.0-92.2) fl MCH (25.7-32.2) pg MCHC (32.2-35.5) g/dl RDW Std Deviation (35.1-43.9) fL Plt Count (163-337) K/mm3 MPV (9.4-12.3) fl Neut % (Auto) (34.0-67.9) % Lymph % (Auto) (21.8-53.1) % [place] % (Auto) (5.3-12.2) % Eos % (Auto) (0.8-7.0) Baso % (Auto) (0.1-1.2) % Neut # (Auto) (1.78-5.38) K/mm3 Lymph # (Auto) (1.32-3.57) K/mm3 [place] # (Auto) (0.30-0.82) K/mm3 Eos # (Auto) (0.04-0.54) K/mm3 Baso # (Auto) (0.01-0.08) K/mm3 Manual Slide Review Puncture Site ABG pH (7.35-7.45) ABG pCO2 (35.0-45.0) mmHg ABG pO2 (80.0-100.0) mmHg ABG HCO3 (22.0-26.0) meq/L ABG O2 Saturation (96.0-97.0) % ABG Base Excess (-2-2.0) A-a Gradient mmHg O2 Delivery Device Oxygen Flow Rate FiO2 (21.00-100.00) % Sodium (136-145) mEq/L Potassium (3.5-5.1) mEq/L Chloride (98-107) mEq/L Carbon Dioxide (21-32) mEq/L Anion Gap (5-15) BUN (7-18) mg/dL Creatinine (0.7-1.3) mg/dL Est Cr Clr Drug Dosing mL/min Estimated GFR (MDRD) (>60) mL/min BUN/Creatinine Ratio (14-18) Glucose (83-115) mg/dL POC Glucose 182 H (83-110) mg/dL Calcium (8.5-10.1) mg/dL Phosphorus (2.6-4.7) mg/dL Magnesium (1.8-2.4) mg/dl Total Bilirubin (0.2-1.0) mg/dL AST (15-37) U/L ALT (16-63) U/L Alkaline Phosphatase (46-116) U/L Troponin I (0.00-0.056) ng/mL Total Protein (6.4-8.2) g/dl Albumin (3.4-5.0) g/dl Globulin gm/dL Albumin/Globulin Ratio (1-2) Procalcitonin (<0.10) ng/mL Med Orders - Current: Current Medications Acetaminophen (Tylenol) 650 mg PO Q4H PRN PRN Reason: Pain (Mild 1-3)/fever Albuterol (Proventil Neb Soln) 2.5 mg NEB Q2H PRN PRN Reason: Shortness of Breath Albuterol/Ipratropium (Duoneb 3.0-0.5 Mg/3 Ml) 3 ml NEB Q8HRRT [facility] Last Admin: 04/21/20 13:17 Dose: 3 ml Documented by: Artificial Tears (Refresh Liquigel 1%) 0 ml EYEBOTH ASDIRECTED PRN PRN Reason: Dry Eyes Last Admin: 04/21/20 12:39 Dose: 1 drop Documented by: Aspirin (Halfprin) 81 mg PO DAILY [facility] Last Admin: 04/21/20 09:08 Dose: 81 mg Documented by: Lactated Ringer's (Ringers, Lactated) 1,000 mls @ 50 mls/hr IV ASDIRECTED [facility] Last Admin: 04/21/20 04:41 Dose: 50 mls/hr Documented by: Ceftriaxone Sodium 2 gm/ (Sodium Chloride) 100 mls @ 200 mls/hr IV Q24H [facility] Azithromycin 500 mg/ Sodium (Chloride) 250 mls @ 250 mls/hr IV ONETIME ONE Stop: 04/21/20 14:56 Azithromycin 250 mg/ Sodium (Chloride) 250 mls @ 250 mls/hr IV Q24H [facility] Stop: 04/26/20 14:01 Insulin Human Lispro (Humalog) 0 unit SUBCUT QIDACANDBED [facility]; Protocol Last Admin: 04/21/20 12:39 Dose: 1 unit Documented by: Oxybutynin Chloride (Oxybutynin) 5 mg PO DAILY [facility] Last Admin: 04/21/20 09:08 Dose: 5 mg Documented by: Rosuvastatin Calcium (Crestor) 10 mg PO DAILY [facility] Last Admin: 04/21/20 09:09 Dose: 10 mg Documented by: Discontinued Medications Albuterol/Ipratropium (Duoneb 3.0-0.5 Mg/3 Ml) 3 ml NEB ONETIME ONE Stop: 04/19/20 21:18 Last Admin: 04/19/20 22:05 Dose: 3 ml Documented by: Apixaban (Eliquis) 2.5 mg PO BID [facility] Last Admin: 04/19/20 22:37 Dose: Not Given Documented by: Furosemide (Lasix) 40 mg IVPUSH NOW ONE Stop: 04/20/20 10:29 Last Admin: 04/20/20 11:43 Dose: 40 mg Documented by: Heparin Sodium (Porcine) (Heparin Sodium) 5,000 units IVPUSH ONETIME ONE Stop: 04/19/20 21:32 Last Admin: 04/19/20 22:37 Dose: 5,000 units Documented by: Lactated Ringer's (Ringers, Lactated) 1,000 mls @ 100 mls/hr IV ASDIRECTED [facility] Last Admin: 04/20/20 13:26 Dose: 100 mls/hr Documented by: Heparin Sodium/Dextrose (Heparin 25,000 Units In D5w 500 Ml) 25,000 units in 500 mls @ 19.469 mls/hr IV TITRATE [facility]; Protocol Last Admin: 04/19/20 22:42 Dose: 11 units/kg/hr, 19.469 mls/hr Documented by: Heparin Sodium/Dextrose (Heparin 25,000 Units In D5w 500 Ml) 25,000 units in 500 mls @ 8.868 mls/hr IV TITRATE [facility]; Protocol Sodium Chloride (Normal Saline) 100 mls @ 75 mls/hr IV ASDIRECTED [facility] Stop: 04/20/20 12:00 Last Admin: 04/20/20 09:11 Dose: 75 mls/hr Documented by: Iopamidol (Isovue-370 (76%)) 100 ml IVPUSH ONETIME ONE Stop: 04/20/20 08:40 Last Admin: 04/20/20 09:11 Dose: 100 ml Documented by: Oxybutynin Chloride (Oxybutynin) 5 mg PO DAILY [facility] Last Admin: 04/20/20 10:29 Dose: Not Given Documented by: Atorvastatin 40 Mg Patient's Own Med 0 each PO BEDTIME [facility] Last Admin: 04/20/20 08:32 Dose: Not Given Documented by: Rosuvastatin Calcium (Crestor) 10 mg PO DAILY [facility] Last Admin: 04/20/20 10:51 Dose: 10 mg Documented by: Sodium Chloride (Saline Flush) 10 ml FLUSH ONETIME PRN PRN Reason: IV FLUSH Stop: 04/20/20 12:00 Last Admin: 04/20/20 09:11 Dose: 10 ml Documented by: - Exam Quality Assessment: Supplemental Oxygen General: Alert HEENT: Pupils Equal, Mucous Membr. Moist/[place] Neck: Supple Lungs: Crackles. No: Normal Respiratory Effort (Decreased lip pursing but continued increased respiratory effort) Cardiovascular: Irregular Rhythm GI/Abdominal Exam: Normal Bowel Sounds, Soft, Non-Tender, No Organomegaly, No Distention, No Abnormal Bruit Extremities: Normal Inspection, Normal Range of Motion, Non-Tender, No Pedal Edema, Normal Capillary Refill Skin: Warm, Dry, Intact EKG INTERPRETATION EKG Date: 04/21/20 Rhythm: A-Fib Rate (Beats/Min): 69 P-Wave: Absent QRS: Other (Q waves in leads II, 3, aVF, V1 through V5) ST-T: Normal EKG Interpretation Comments: Artifact makes it difficult to interpret EKG. Sepsis Event Note - Evaluation Sepsis Screening Result: No Definite Risk - Focused Exam Vital Signs: Vital Signs Temp Temp Pulse Pulse Resp BP Pulse Ox 04/21/20 13:18 04/21/20 12:37 60 04/21/20 09:00 04/21/20 08:13 72 127/62 90 L 04/21/20 08:00 99.8 F 04/21/20 06:01 04/21/20 05:46 04/21/20 04:33 98.6 F 67 20 133/57 L 92 L 04/21/20 03:31 Pulse Ox Pulse Ox 04/21/20 13:18 91 L 04/21/20 12:37 04/21/20 09:00 90 L 04/21/20 08:13 04/21/20 08:00 04/21/20 06:01 95 04/21/20 05:46 92 L 04/21/20 04:33 04/21/20 03:31 93 L Date Exam was Performed: 04/21/20 Time Exam was Performed: 20:58 - Problem List & Annotations (1) Acute on chronic renal insufficiency SNOMED Code(s): 459722220 Code(s): N28.9 - DISORDER OF KIDNEY AND URETER, UNSPECIFIED; N18.9 - CHRONIC KIDNEY DISEASE, UNSPECIFIED Status: Acute Current Visit: Yes (2) New onset atrial fibrillation SNOMED Code(s): 94581523 Code(s): I48.91 - UNSPECIFIED ATRIAL FIBRILLATION Status: Acute Current Visit: Yes (3) Weakness SNOMED Code(s): 22344076 Code(s): R53.1 - WEAKNESS Status: Acute Current Visit: Yes (4) Pneumonia SNOMED Code(s): 620745994 Code(s): J18.9 - PNEUMONIA, UNSPECIFIED ORGANISM Status: Acute Current Visit: Yes (5) Acute hypoxemic respiratory failure SNOMED Code(s): 893540066 Code(s): J96.01 - ACUTE RESPIRATORY FAILURE WITH HYPOXIA Status: Acute Current Visit: Yes - Problem List Review Problem List Initiated/Reviewed/Updated: Yes - My Orders Last 24 Hours: My Active Orders 04/20/20 15:05 Antiembolic Devices [RC] BID SCD [Sequential Compression Device] [OM.PC] Routine 04/20/20 17:45 Lactated Ringers [Ringers, Lactated] 1,000 ml IV ASDIRECTED 04/20/20 19:59 Oxygen Therapy Adult [Oxygen Therapy] [RC] ASDIRECTED 04/20/20 20:06 EKG 12 Lead [EK] Stat 04/20/20 22:03 CPAP Adult [RT BiPAP/CPAP] [RC] ASDIRECTED 04/21/20 10:09 EKG 12 Lead [EK] Stat 04/21/20 10:53 Carboxymethylcellulose Sodium [Refresh Liquigel 1%] 0 ml EYEBOTH ASDIRECTED PRN 04/21/20 13:55 CULTURE BLOOD [BC] Stat CULTURE BLOOD [BC] Stat LACTATE SEPSIS W/ REFLEX [CHEM] Stat Blood Culture x2 Reflex Set [OM.PC] Stat 04/21/20 13:56 STREP PNEUMONIAE ANTIGEN [MREF] Routine 04/21/20 13:57 Azithromycin [Zithromax] 500 mg Sodium Chloride 0.9% [Normal Saline] 250 ml IV ONETIME 04/21/20 14:00 cefTRIAXone [Rocephin] 2 gm Sodium Chloride 0.9% [Normal Saline] 100 ml IV Q24H 04/22/20 Echo Comp wo Cont [US] Routine 04/22/20 05:00 PROCALCITONIN [REF] Routine 04/22/20 05:11 CBC W/O DIFF,HEMOGRAM [HEME] AM 04/22/20 14:00 Azithromycin [Zithromax] 250 mg Sodium Chloride 0.9% [Normal Saline] 250 ml IV Q24H 04/23/20 05:11 CBC W/O DIFF,HEMOGRAM [HEME] AM 04/24/20 05:11 CBC W/O DIFF,HEMOGRAM [HEME] AM 04/25/20 05:11 CBC W/O DIFF,HEMOGRAM [HEME] AM - Assessment Assessment:: April 19, 2020 -day of admission * 84-year-old male with increasing weakness and new onset atrial fibrillation. * Increasing weakness over the last week with shortness of breath. * Ventricular rate is controlled in the 70s. * On no rate controlling medications. * Positive d-dimer * D-dimer 7.15 * Possible VTE versus pulmonary embolism * Significant renal dysfunction making CTA relatively contraindicated * Elevated proBNP * proBNP 838 * No history of heart failure or hypertension * Pulmonary exam shows wheezes without rales or crackles * Chest x-ray shows a normal heart size and lungs are clear * Patient is on furosemide 40 mg daily per history for unknown reason * Hypoxemia * History of smoking with tobacco cessation approximately 35 years ago. 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 * Likely 1 of the causes of his increasing weakness over the last week. * On exam patient did breathe with pursed lips. * Requiring 2-3 L nasal cannula. * Acute renal injury * I do not have old records available to me, but emergency department provider stated that his records from [place] showed a creatinine of 1.2- 1.8 * Likely multifactorial including prerenal disease * Possibly artificially increasing proBNP and d-dimer * Started on IV fluids in the emergency department * Thrombocytopenia unknown cause * Patient states he does not know of any history of having low platelets * Platelets on admission 65,000 * Significant concern for pulmonary embolism * Patient does have hypoxemia with shortness of breath and a positive d- dimer. * CTA was not done in the emergency department because of concerns of worsening his renal insufficiency * Type 2 diabetes * On oral meds including metformin and glimepiride * Patient states morning blood sugars are usually in the low 100s April 20, 2020 * Patient with worsening hypoxemia overnight requiring high flow nasal cannula. * CTA of the chest done because of worsening hypoxemia. No pulmonary embolism. Findings consistent with posterior bibasilar atelectasis but difficult to completely exclude small areas of pneumonia. Interstitial changes most likely representing fibrosis. * Atelectasis most likely cause of hypoxemia. He has had a low-grade temp of 100.0, but white count is normal. Atelectasis can cause a low-grade temperature. * Atrial fibrillation -patient had episode of hemoptysis with heparin. Platelet count is dropping. Ventricular rate has been controlled in the 60s and 70s. * Acute renal injury is improving, but did receive IV contrast. Estimated GFR increased to 30 and creatinine decreased to 2.1 * Bilateral lower extremity Dopplers were negative for DVT. Elevated d-dimer does not appear to be secondary to clinically significant VTE or pulmonary embolism. * Thrombocytopenia -platelets decreased from 65,000-51,000. * Type 2 diabetes -blood sugars ranging from 76-170s. Hemoglobin A1c 7.8. April 21, 2020 * Hypoxemic respiratory failure likely secondary to atelectasis and possible underlying pneumonia * T-max 99.8 * WBC 3.86 * Procalcitonin 0.27 * He tolerated CPAP overnight and is tolerating high flow nasal cannula. * Paroxysmal atrial fibrillation * Patient's rate is back into the 60s and 70s. * Continue to monitor on telemetry. * Acute renal injury * Mild improvement in renal function with creatinine of 2.1 and GFR of 30. * No worsening after CTA with contrast * Thrombocytopenia -platelets 55,000, stable. * Type 2 diabetes -blood sugars stable in the mid 100s Chronic: Left-sided lower extremity weakness secondary to a stroke in 2010, urinary incontinence - Plan Plan:: Plan * Admit for observation with telemetry * FiO2 to keep SPO2 at 90% or greater. Currently on high flow nasal cannula. * CPAP when sleeping * Blood cultures and lactic acid - 1.4 * Rocephin 2 g every 24 hours * Azithromycin 500 mg today then 250 mg daily x4 * Stop IV fluids LR at 100 mL an hour if lactic acid is below 2 * Anticoagulation stopped secondary to dropping platelets and episode of hemoptysis. * Echocardiogram ordered for Wednesday. * Follow CBC, CMP, magnesium * Get repeat procalcitonin in the morning * Hold glimepiride and metformin. * Fingerstick blood sugars 4 times daily * Sliding scale insulin, low-dose * Continue aspirin 81 mg daily * CODE STATUS: Full code * VTE prophylaxis with SCDs.
[2020-04-21] MEDS: cefTRIAXone 2 GM in Sodium Chloride 0.9% 100 ML IV SCH (15:12)
[2020-04-22] MEDS: Insulin Lispro 100 Units/ML 3 ML Vial SUBCUT SCH ×4 (00:33→17:58)
[2020-04-22] MEDS: Lactated Ringers 1,000 ML IV SCH (02:00)
[2020-04-22] MEDS: Albuterol/Ipratropium 3.0-0.5 MG/3 ML Neb Soln NEB SCH ×3 (06:23→20:17)
[2020-04-22] MEDS: Oxybutynin 5 MG Tab PO SCH (09:56)
[2020-04-22] MEDS: Rosuvastatin 10 MG Tab PO SCH (09:56)
[2020-04-22] MEDS: Aspirin 81 MG Tab.EC PO SCH (09:56)
[2020-04-22] MEDS: Carboxymethylcellulose Sodium 1% Ophth Gel 15 ML Bottle EYEBOTH PRN (09:58)
--- NOTE | 2020-04-22 10:09 | PCM.PN ---
- General Info Date of Service: 04/22/20 Admission Dx/Problem (Free Text): Admission Diagnosis/Problem Admission Diagnosis/Problem Weakness Subjective Update: Patient has no significant complaints this morning. He does state he is still mildly short of breath. He is a bit confused, but this appears to be baseline. No bowel movement since April 20. Eating 40 to 80% of his meals. Functional Status: Reports: Pain Controlled - Review of Systems General: Reports: No Symptoms HEENT: Reports: No Symptoms Pulmonary: Reports: Shortness of Breath Cardiovascular: Reports: No Symptoms Gastrointestinal: Reports: No Symptoms Musculoskeletal: Reports: No Symptoms Skin: Reports: No Symptoms Neurological: Reports: Confusion Psychiatric: Reports: Confusion - Patient Data Vitals - Most Recent: Last Vital Signs Temp 100.2 F 04/22/20 07:45 Pulse 62 04/22/20 07:45 Resp 24 H 04/22/20 07:45 BP 129/69 04/22/20 07:45 Pulse Ox 88 L 04/22/20 08:45 Weight - Most Recent: 88.949 kg I&O - Last 24 Hours: Intake & Output 04/21/20 04/22/20 04/22/20 22:59 06:59 14:59 Intake Total 959 818 Output Total 100 450 Balance 859 368 Lab Results Last 24 Hours: Laboratory Results - last 24 hr 04/21/20 04/21/20 04/21/20 Range/Units 11:31 14:32 16:49 WBC (4.23-9.07) K/mm3 RBC (4.63-6.08) M/mm3 Hgb (13.7-17.5) gm/dl Hct (40.1-51.0) % MCV (79.0-92.2) fl MCH (25.7-32.2) pg MCHC (32.2-35.5) g/dl RDW Std Deviation (35.1-43.9) fL Plt Count (163-337) K/mm3 MPV (9.4-12.3) fl Sodium (136-145) mEq/L Potassium (3.5-5.1) mEq/L Chloride (98-107) mEq/L Carbon Dioxide (21-32) mEq/L Anion Gap (5-15) BUN (7-18) mg/dL Creatinine (0.7-1.3) mg/dL Est Cr Clr Drug Dosing mL/min Estimated GFR (MDRD) (>60) mL/min BUN/Creatinine Ratio (14-18) Glucose (83-115) mg/dL POC Glucose 182 H 189 H (83-110) mg/dL Lactic Acid 1.4 (0.4-2.0) mmol/L Calcium (8.5-10.1) mg/dL 04/21/20 04/22/20 04/22/20 Range/Units 21:40 05:30 05:30 WBC 3.38 L (4.23-9.07) K/mm3 RBC 4.35 L (4.63-6.08) M/mm3 Hgb 13.8 (13.7-17.5) gm/dl Hct 42.5 (40.1-51.0) % MCV 97.7 H (79.0-92.2) fl MCH 31.7 (25.7-32.2) pg MCHC 32.5 (32.2-35.5) g/dl RDW Std Deviation 48.8 H (35.1-43.9) fL Plt Count 55 L (163-337) K/mm3 MPV 9.9 (9.4-12.3) fl Sodium 141 (136-145) mEq/L Potassium 4.6 (3.5-5.1) mEq/L Chloride 106 (98-107) mEq/L Carbon Dioxide 30 (21-32) mEq/L Anion Gap 9.6 (5-15) BUN 35 H (7-18) mg/dL Creatinine 1.8 H (0.7-1.3) mg/dL Est Cr Clr Drug Dosing 28.50 mL/min Estimated GFR (MDRD) 36 (>60) mL/min BUN/Creatinine Ratio 19.4 H (14-18) Glucose 138 H (83-115) mg/dL POC Glucose 137 H (83-110) mg/dL Lactic Acid (0.4-2.0) mmol/L Calcium 8.0 L (8.5-10.1) mg/dL 04/22/20 Range/Units 06:37 WBC (4.23-9.07) K/mm3 RBC (4.63-6.08) M/mm3 Hgb (13.7-17.5) gm/dl Hct (40.1-51.0) % MCV (79.0-92.2) fl MCH (25.7-32.2) pg MCHC (32.2-35.5) g/dl RDW Std Deviation (35.1-43.9) fL Plt Count (163-337) K/mm3 MPV (9.4-12.3) fl Sodium (136-145) mEq/L Potassium (3.5-5.1) mEq/L Chloride (98-107) mEq/L Carbon Dioxide (21-32) mEq/L Anion Gap (5-15) BUN (7-18) mg/dL Creatinine (0.7-1.3) mg/dL Est Cr Clr Drug Dosing mL/min Estimated GFR (MDRD) (>60) mL/min BUN/Creatinine Ratio (14-18) Glucose (83-115) mg/dL POC Glucose 98 (83-110) mg/dL Lactic Acid (0.4-2.0) mmol/L Calcium (8.5-10.1) mg/dL Devan Results Last 24 Hours: Microbiology 04/21/20 14:45 Anaerobic Blood Culture - Final Blood - Venous - Lab Draw Med Orders - Current: Current Medications Acetaminophen (Tylenol) 650 mg PO Q4H PRN PRN Reason: Pain (Mild 1-3)/fever Albuterol (Proventil Neb Soln) 2.5 mg NEB Q2H PRN PRN Reason: Shortness of Breath Albuterol/Ipratropium (Duoneb 3.0-0.5 Mg/3 Ml) 3 ml NEB Q8HRRT [facility] Last Admin: 04/22/20 06:23 Dose: 3 ml Documented by: Artificial Tears (Refresh Liquigel 1%) 0 ml EYEBOTH ASDIRECTED PRN PRN Reason: Dry Eyes Last Admin: 04/22/20 09:58 Dose: 1 drop Documented by: Aspirin (Halfprin) 81 mg PO DAILY [facility] Last Admin: 04/22/20 09:56 Dose: 81 mg Documented by: Lactated Ringer's (Ringers, Lactated) 1,000 mls @ 50 mls/hr IV ASDIRECTED [facility] Last Admin: 04/22/20 02:00 Dose: 50 mls/hr Documented by: Ceftriaxone Sodium 2 gm/ (Sodium Chloride) 100 mls @ 200 mls/hr IV Q24H [facility] Last Admin: 04/21/20 15:12 Dose: 200 mls/hr Documented by: Azithromycin 250 mg/ Sodium (Chloride) 250 mls @ 250 mls/hr IV Q24H [facility] Stop: 04/26/20 14:01 Insulin Human Lispro (Humalog) 0 unit SUBCUT QIDACANDBED [facility]; Protocol Last Admin: 04/22/20 07:01 Dose: Not Given Documented by: Oxybutynin Chloride (Oxybutynin) 5 mg PO DAILY [facility] Last Admin: 04/22/20 09:56 Dose: 5 mg Documented by: Rosuvastatin Calcium (Crestor) 10 mg PO DAILY [facility] Last Admin: 04/22/20 09:56 Dose: 10 mg Documented by: Discontinued Medications Albuterol/Ipratropium (Duoneb 3.0-0.5 Mg/3 Ml) 3 ml NEB ONETIME ONE Stop: 04/19/20 21:18 Last Admin: 04/19/20 22:05 Dose: 3 ml Documented by: Apixaban (Eliquis) 2.5 mg PO BID [facility] Last Admin: 04/19/20 22:37 Dose: Not Given Documented by: Furosemide (Lasix) 40 mg IVPUSH NOW ONE Stop: 04/20/20 10:29 Last Admin: 04/20/20 11:43 Dose: 40 mg Documented by: Heparin Sodium (Porcine) (Heparin Sodium) 5,000 units IVPUSH ONETIME ONE Stop: 04/19/20 21:32 Last Admin: 04/19/20 22:37 Dose: 5,000 units Documented by: Lactated Ringer's (Ringers, Lactated) 1,000 mls @ 100 mls/hr IV ASDIRECTED [facility] Last Admin: 04/20/20 13:26 Dose: 100 mls/hr Documented by: Heparin Sodium/Dextrose (Heparin 25,000 Units In D5w 500 Ml) 25,000 units in 500 mls @ 19.469 mls/hr IV TITRATE [facility]; Protocol Last Admin: 04/19/20 22:42 Dose: 11 units/kg/hr, 19.469 mls/hr Documented by: Heparin Sodium/Dextrose (Heparin 25,000 Units In D5w 500 Ml) 25,000 units in 500 mls @ 8.868 mls/hr IV TITRATE [facility]; Protocol Sodium Chloride (Normal Saline) 100 mls @ 75 mls/hr IV ASDIRECTED [facility] Stop: 04/20/20 12:00 Last Admin: 04/20/20 09:11 Dose: 75 mls/hr Documented by: Azithromycin 500 mg/ Sodium (Chloride) 250 mls @ 250 mls/hr IV ONETIME ONE Stop: 04/21/20 14:56 Last Admin: 04/21/20 15:53 Dose: 250 mls/hr Documented by: Iopamidol (Isovue-370 (76%)) 100 ml IVPUSH ONETIME ONE Stop: 04/20/20 08:40 Last Admin: 04/20/20 09:11 Dose: 100 ml Documented by: Oxybutynin Chloride (Oxybutynin) 5 mg PO DAILY [facility] Last Admin: 04/20/20 10:29 Dose: Not Given Documented by: Atorvastatin 40 Mg Patient's Own Med 0 each PO BEDTIME [facility] Last Admin: 04/20/20 08:32 Dose: Not Given Documented by: Rosuvastatin Calcium (Crestor) 10 mg PO DAILY [facility] Last Admin: 04/20/20 10:51 Dose: 10 mg Documented by: Sodium Chloride (Saline Flush) 10 ml FLUSH ONETIME PRN PRN Reason: IV FLUSH Stop: 04/20/20 12:00 Last Admin: 04/20/20 09:11 Dose: 10 ml Documented by: - Exam Quality Assessment: Supplemental Oxygen (High flow nasal cannula) General: Alert HEENT: Pupils Equal, Mucous Membr. Moist/[place] Neck: Supple Lungs: Normal Respiratory Effort, Rales (Bibasilar) Cardiovascular: Regular Rate, Regular Rhythm GI/Abdominal Exam: Normal Bowel Sounds, Soft, Non-Tender, No Organomegaly, No Distention, No Abnormal Bruit Extremities: Normal Inspection, Normal Range of Motion, Non-Tender, No Pedal Edema, Normal Capillary Refill Skin: Warm, Dry, Intact Psy/Mental Status: Alert, Normal Affect, Normal Mood Sepsis Event Note - Evaluation Sepsis Screening Result: No Definite Risk - Focused Exam Vital Signs: Vital Signs Temp Temp Pulse Pulse Resp BP BP 04/22/20 08:45 04/22/20 07:45 100.2 F 62 24 H 129/69 04/22/20 06:27 04/22/20 06:06 47 L 04/22/20 06:03 04/22/20 04:59 99.0 F 51 L 20 125/54 L 04/22/20 04:00 04/22/20 00:38 04/21/20 23:55 98.2 F 62 20 128/62 Pulse Ox Pulse Ox Pulse Ox 04/22/20 08:45 88 L 04/22/20 07:45 87 L 04/22/20 06:27 92 L 04/22/20 06:06 91 L 04/22/20 06:03 91 L 04/22/20 04:59 92 L 04/22/20 04:00 92 L 04/22/20 00:38 92 L 04/21/20 23:55 92 L Date Exam was Performed: 04/22/20 Time Exam was Performed: 17:06 - Problem List & Annotations (1) Acute on chronic renal insufficiency SNOMED Code(s): 260068098 Code(s): N28.9 - DISORDER OF KIDNEY AND URETER, UNSPECIFIED; N18.9 - CHRONIC KIDNEY DISEASE, UNSPECIFIED Status: Acute Current Visit: Yes (2) New onset atrial fibrillation SNOMED Code(s): 61484064 Code(s): I48.91 - UNSPECIFIED ATRIAL FIBRILLATION Status: Acute Current Visit: Yes (3) Weakness SNOMED Code(s): 91256710 Code(s): R53.1 - WEAKNESS Status: Acute Current Visit: Yes (4) Pneumonia SNOMED Code(s): 257711999 Code(s): J18.9 - PNEUMONIA, UNSPECIFIED ORGANISM Status: Acute Current Visit: Yes (5) Acute hypoxemic respiratory failure SNOMED Code(s): 734639949 Code(s): J96.01 - ACUTE RESPIRATORY FAILURE WITH HYPOXIA Status: Acute Current Visit: Yes - Problem List Review Problem List Initiated/Reviewed/Updated: Yes - My Orders Last 24 Hours: My Active Orders 04/21/20 10:09 EKG 12 Lead [EK] Stat 04/21/20 10:53 Carboxymethylcellulose Sodium [Refresh Liquigel 1%] 0 ml EYEBOTH ASDIRECTED PRN 04/21/20 13:55 Blood Culture x2 Reflex Set [OM.PC] Stat 04/21/20 14:00 cefTRIAXone [Rocephin] 2 gm Sodium Chloride 0.9% [Normal Saline] 100 ml IV Q24H 04/21/20 14:32 CULTURE BLOOD [BC] Stat 04/21/20 14:45 CULTURE BLOOD [BC] Stat 04/22/20 05:00 PROCALCITONIN [REF] Routine 04/22/20 14:00 Azithromycin [Zithromax] 250 mg Sodium Chloride 0.9% [Normal Saline] 250 ml IV Q24H 04/23/20 05:11 CBC W/O DIFF,HEMOGRAM [HEME] AM 04/24/20 05:11 CBC W/O DIFF,HEMOGRAM [HEME] AM 04/25/20 05:11 CBC W/O DIFF,HEMOGRAM [HEME] AM - Assessment Assessment:: April 19, 2020 -day of admission * 84-year-old male with increasing weakness and new onset atrial fibrillation. * Increasing weakness over the last week with shortness of breath. * Ventricular rate is controlled in the 70s. * On no rate controlling medications. * Positive d-dimer * D-dimer 7.15 * Possible VTE versus pulmonary embolism * Significant renal dysfunction making CTA relatively contraindicated * Elevated proBNP * proBNP 838 * No history of heart failure or hypertension * Pulmonary exam shows wheezes without rales or crackles * Chest x-ray shows a normal heart size and lungs are clear * Patient is on furosemide 40 mg daily per history for unknown reason * Hypoxemia * History of smoking with tobacco cessation approximately 35 years ago. 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 * Likely 1 of the causes of his increasing weakness over the last week. * On exam patient did breathe with pursed lips. * Requiring 2-3 L nasal cannula. * Acute renal injury * I do not have old records available to me, but emergency department provider stated that his records from [place] showed a creatinine of 1.2- 1.8 * Likely multifactorial including prerenal disease * Possibly artificially increasing proBNP and d-dimer * Started on IV fluids in the emergency department * Thrombocytopenia unknown cause * Patient states he does not know of any history of having low platelets * Platelets on admission 65,000 * Significant concern for pulmonary embolism * Patient does have hypoxemia with shortness of breath and a positive d- dimer. * CTA was not done in the emergency department because of concerns of worsening his renal insufficiency * Type 2 diabetes * On oral meds including metformin and glimepiride * Patient states morning blood sugars are usually in the low 100s April 20, 2020 * Patient with worsening hypoxemia overnight requiring high flow nasal cannula. * CTA of the chest done because of worsening hypoxemia. No pulmonary embolism. Findings consistent with posterior bibasilar atelectasis but difficult to completely exclude small areas of pneumonia. Interstitial changes most likely representing fibrosis. * Atelectasis most likely cause of hypoxemia. He has had a low-grade temp of 100.0, but white count is normal. Atelectasis can cause a low-grade temperature. * Atrial fibrillation -patient had episode of hemoptysis with heparin. Platelet count is dropping. Ventricular rate has been controlled in the 60s and 70s. * Acute renal injury is improving, but did receive IV contrast. Estimated GFR increased to 30 and creatinine decreased to 2.1 * Bilateral lower extremity Dopplers were negative for DVT. Elevated d-dimer does not appear to be secondary to clinically significant VTE or pulmonary embolism. * Thrombocytopenia -platelets decreased from 65,000-51,000. * Type 2 diabetes -blood sugars ranging from 76-170s. Hemoglobin A1c 7.8. April 21, 2020 * Hypoxemic respiratory failure likely secondary to atelectasis and possible underlying pneumonia * T-max 99.8 * WBC 3.86 * Procalcitonin 0.27 * He tolerated CPAP overnight and is tolerating high flow nasal cannula. * Paroxysmal atrial fibrillation * Patient's rate is back into the 60s and 70s. * Continue to monitor on telemetry. * Acute renal injury * Mild improvement in renal function with creatinine of 2.1 and GFR of 30. * No worsening after CTA with contrast * Thrombocytopenia -platelets 55,000, stable. * Type 2 diabetes -blood sugars stable in the mid 100s April 22, 2020 * Hypoxemic respiratory failure secondary to atelectasis and possible underlying pneumonia * T-max 100.6 * WBC decreased to 3.38 * Currently on Rocephin and azithromycin * Oxygenation improving. Currently on high flow nasal cannula with FiO2 at 60% at 30 L. * Paroxysmal atrial fibrillation with episodes of sinus versus ectopic atrial bradycardia into the 40s * Patient is asymptomatic without chest pain, increasing shortness of breath, or dizziness. * Unable to anticoagulate secondary to thrombocytopenia * Echocardiogram done today * Acute renal injury -improving * Estimated GFR 36, creatinine 1.8, BUN 35 * Thrombocytopenia * Platelets stable at 55,000 * No spontaneous bruising or bleeding * Type 2 diabetes * Well controlled blood sugars * Fingerstick blood sugars before each meal and bed Chronic: Left-sided lower extremity weakness secondary to a stroke in 2010, urinary incontinence - Plan Plan:: Plan * Admit for observation with telemetry * FiO2 to keep SPO2 at 90% or greater. Currently on high flow nasal cannula. * CPAP when sleeping * Blood cultures -pending * Rocephin 2 g every 24 hours * Azithromycin 2 days of 5 * Stop IV fluids. * Anticoagulation stopped secondary to thrombocytopenia and single episode of hemoptysis. * Echocardiogram done today. * Follow CBC, CMP, magnesium, phos * Procalcitonin today * Hold glimepiride and metformin. * Fingerstick blood sugars 4 times daily * Sliding scale insulin, low-dose * Continue aspirin 81 mg daily * CODE STATUS: Full code * VTE prophylaxis with SCDs.
[2020-04-22] MEDS: Azithromycin 250 MG in Sodium Chloride 0.9% 250 ML IV SCH (14:58)
[2020-04-22] MEDS: cefTRIAXone 2 GM in Sodium Chloride 0.9% 100 ML IV SCH (16:05)
[2020-04-22] MEDS ORDERED: Sodium Chloride 0.9% 10 ML Syringe FLUSH PRN (16:10)
[2020-04-22] MEDS ORDERED: Furosemide 40 MG/4 ML VIAL IVPUSH ONE (16:15)
[2020-04-22] MEDS: Acetaminophen 325 MG Tab PO PRN (17:24)
--- NOTE | 2020-04-22 21:45 | PCM.SN.2 ---
- Free Text/Narrative Note: Initially called by nursing at approximately 1730 secondary to a fever of 102.8. Subsequent lab work was obtained and a COVID screen was again done. His COVID testing did come back positive and patient was put on isolation and a negative pressure room. Patient continues on high flow nasal cannula with a flow rate of 30 L/min at 60% FiO2. This is an improvement over the last few days. His SPO2 is 93%. He continues to have a mildly increased respiratory rate of 24 and increased respiratory effort with pursed lip breathing. At this time I called [facility] in [place] and [facility] [place] in hopes to transfer the patient for [facility] to [facility]. Unfortunately, both hospitals were closed to ICU patients and COVID patients. Patient is stable and further lab work will be performed in the morning. He will get dexamethasone 6 mg IV daily first dose now. Plan will be to reevaluate in the morning and transfer if appropriate. I spoke with the patient at length and he continues to want to be a full code. I also spoke to his and explained that she will have to quarantine and she will be contacted by the health department tomorrow.
[2020-04-23] MEDS: Insulin Lispro 100 Units/ML 3 ML Vial SUBCUT SCH ×3 (02:37→12:06)
[2020-04-23] MEDS: Dexamethasone 4 MG/ML SDV IVPUSH SCH ×2 (02:47→08:45)
[2020-04-23] MEDS: Acetaminophen 325 MG Tab PO PRN (05:09)
[2020-04-23] MEDS ORDERED: Magnesium Hydroxide 400 MG/5 ML Susp 30 ML Cup PO ONE (05:30)
[2020-04-23] MEDS: Albuterol/Ipratropium 3.0-0.5 MG/3 ML Neb Soln NEB SCH (06:39)
--- NOTE | 2020-04-23 07:42 | PCM.PN ---
- General Info Date of Service: 04/23/20 Subjective Update: Worsening shortness of breath Tolerating diet BM this morning No complaints from patient - Patient Data Vitals - Most Recent: Last Vital Signs Temp 100.6 F 04/23/20 05:07 Pulse 71 04/23/20 05:07 Resp 32 H 04/23/20 05:07 BP 109/95 H 04/23/20 05:07 Pulse Ox 91 L 04/23/20 06:10 Weight - Most Recent: 88.587 kg - Exam Quality Assessment: Supplemental Oxygen General: Alert, Oriented, Mild Distress, Moderate Distress HEENT: Pupils Equal, Pupils Reactive, EOMI, Mucous Membr. Moist/[place] Neck: Supple, Trachea Midline, No JVD, No Thyromegaly Lungs: Decreased Breath Sounds (significantly decreased air entry throughout), Crackles. No: Rales, Rhonchi, Rub, Stridor, Wheezing Cardiovascular: Regular Rate, Regular Rhythm. No: Murmurs, Gallops, Rubs GI/Abdominal Exam: Normal Bowel Sounds, Soft, Non-Tender, Distended. No: Guarding, Rigid, Rebound Extremities: Normal Inspection, Non-Tender, Normal Capillary Refill, Pedal Edema Peripheral Pulses: 2+: Radial (L), Radial (R) Skin: Warm, Dry, Intact Neurological: No New Focal Deficit Psy/Mental Status: Alert Sepsis Event Note - Evaluation Sepsis Screening Result: Severe Sepsis Risk - Problem List & Annotations (1) COVID-19 SNOMED Code(s): 493169958 Code(s): U07.1 - COVID-19 Status: Acute Current Visit: Yes (2) Lymphopenia associated with COVID-19 SNOMED Code(s): 296172255 Code(s): U07.1 - COVID-19; D72.810 - LYMPHOCYTOPENIA Status: Acute Current Visit: Yes (3) Acute kidney injury SNOMED Code(s): 65200581, 66569641 Code(s): N17.9 - ACUTE KIDNEY FAILURE, UNSPECIFIED Status: Acute Current Visit: Yes (4) Hyperkalemia SNOMED Code(s): 82269045 Code(s): E87.5 - HYPERKALEMIA Status: Acute Current Visit: Yes (5) Acute hypoxemic respiratory failure SNOMED Code(s): 967373897 Code(s): J96.01 - ACUTE RESPIRATORY FAILURE WITH HYPOXIA Status: Acute Current Visit: Yes (6) New onset atrial fibrillation SNOMED Code(s): 04960661 Code(s): I48.91 - UNSPECIFIED ATRIAL FIBRILLATION Status: Acute Current Visit: Yes (7) Pneumonia SNOMED Code(s): 429787660 Code(s): J18.9 - PNEUMONIA, UNSPECIFIED ORGANISM Status: Acute Current Visit: Yes (8) Weakness SNOMED Code(s): 33303282 Code(s): R53.1 - WEAKNESS Status: Acute Current Visit: Yes (9) Diabetes mellitus SNOMED Code(s): 84549200 Code(s): E11.9 - TYPE 2 DIABETES MELLITUS WITHOUT COMPLICATIONS Status: Acute Current Visit: Yes (10) Ex-smoker SNOMED Code(s): 4443839 Code(s): Z87.891 - PERSONAL HISTORY OF NICOTINE DEPENDENCE Status: Acute Current Visit: Yes (11) Thrombocytopenia SNOMED Code(s): 845264627 Code(s): D69.6 - THROMBOCYTOPENIA, UNSPECIFIED Status: Acute Current Visit: Yes (12) Hypocalcemia SNOMED Code(s): 9193925 Code(s): E83.51 - HYPOCALCEMIA Status: Acute Current Visit: Yes - Problem List Review Problem List Initiated/Reviewed/Updated: Yes - Assessment Assessment:: April 19, 2020 -day of admission 84-year-old male with increasing weakness and new onset atrial fibrillation. - Increasing weakness over the last week with shortness of breath. - Ventricular rate is controlled in the 70s. - On no rate controlling medications. Positive d-dimer - D-dimer 7.15 - Possible VTE versus pulmonary embolism - Significant renal dysfunction making CTA relatively contraindicated Elevated proBNP - proBNP 838 - No history of heart failure or hypertension - Pulmonary exam shows wheezes without rales or crackles - Chest x-ray shows a normal heart size and lungs are clear - Patient is on furosemide 40 mg daily per history for unknown reason Hypoxemia - History of smoking with tobacco cessation approximately 35 years ago. 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 - Likely 1 of the causes of his increasing weakness over the last week. - On exam patient did breathe with pursed lips. - Requiring 2-3 L nasal cannula. Acute renal injury - I do not have old records available to me, but emergency department provider stated that his records from [place] showed a creatinine of 1.2-1.8 - Likely multifactorial including prerenal disease - Possibly artificially increasing proBNP and d-dimer - Started on IV fluids in the emergency department Thrombocytopenia unknown cause - Patient states he does not know of any history of having low platelets - Platelets on admission 65,000 Significant concern for pulmonary embolism - Patient does have hypoxemia with shortness of breath and a positive d-dimer. - CTA was not done in the emergency department because of concerns of worsening his renal insufficiency Type 2 diabetes - On oral meds including metformin and glimepiride - Patient states morning blood sugars are usually in the low 100s April 20, 2020 Patient with worsening hypoxemia overnight requiring high flow nasal cannula. CTA of the chest done because of worsening hypoxemia. No pulmonary embolism. Findings consistent with posterior bibasilar atelectasis but difficult to completely exclude small areas of pneumonia. Interstitial changes most likely representing fibrosis. Atelectasis most likely cause of hypoxemia. He has had a low-grade temp of 100 .0, but white count is normal. Atelectasis can cause a low-grade temperature. Atrial fibrillation -patient had episode of hemoptysis with heparin. Platelet count is dropping. Ventricular rate has been controlled in the 60s and 70s. Acute renal injury is improving, but did receive IV contrast. Estimated GFR increased to 30 and creatinine decreased to 2.1 Bilateral lower extremity Dopplers were negative for DVT. Elevated d-dimer does not appear to be secondary to clinically significant VTE or pulmonary embolism. Thrombocytopenia -platelets decreased from 65,000-51,000. Type 2 diabetes -blood sugars ranging from 76-170s. Hemoglobin A1c 7.8. April 21, 2020 Hypoxemic respiratory failure likely secondary to atelectasis and possible underlying pneumonia - T-max 99.8 - WBC 3.86 - Procalcitonin 0.27 - He tolerated CPAP overnight and is tolerating high flow nasal cannula. Paroxysmal atrial fibrillation - Patient's rate is back into the 60s and 70s. - Continue to monitor on telemetry. Acute renal injury - Mild improvement in renal function with creatinine of 2.1 and GFR of 30. - No worsening after CTA with contrast Thrombocytopenia -platelets 55,000, stable. Type 2 diabetes -blood sugars stable in the mid 100s April 22, 2020 Hypoxemic respiratory failure secondary to atelectasis and possible underlying pneumonia - T-max 100.6 - WBC decreased to 3.38 - Currently on Rocephin and azithromycin - Oxygenation improving. Currently on high flow nasal cannula with FiO2 at 60% at 30 L. Paroxysmal atrial fibrillation with episodes of sinus versus ectopic atrial bradycardia into the 40s - Patient is asymptomatic without chest pain, increasing shortness of breath, or dizziness. - Unable to anticoagulate secondary to thrombocytopenia - Echocardiogram done today Acute renal injury -improving - Estimated GFR 36, creatinine 1.8, BUN 35 Thrombocytopenia - Platelets stable at 55,000 - No spontaneous bruising or bleeding Type 2 diabetes - Well controlled blood sugars - Fingerstick blood sugars before each meal and bed OVERNIGHT - Initially called by nursing at approximately 1730 secondary to a fever of 102.8. - Subsequent lab work was obtained and a COVID screen was repeated and reported positive - Continued to be on hi-flow at 30L at 60% FiO2, Sat 93% - No beds available at [place] - Dexamethasone 6mg IV x 1 dose April 23, 2020 - Called [facility] and Remdesivir was sent here--> patient started on it Labs - WBC down from 4.08 to 3.89 - Lymphocytes down from 490 to 260 - K up from 4.7 to 5.2 - GFR down from 36 to 34 - LDH 393 - Total CK 359 - CRP 15.2 - Glu 98-161 VS trend - BP 119-131/36-91 - Tmax 102.7 - HR 31-63x' - SatO2 > 87% on 60-80% - Plan Plan:: BY SYSTEMS: Neurology: Minimize central acting medications as possible. Frequent neurologic exams by nursing staff. Respiratory: Continue high flow nasal cannula Goal O2 between 88-94% PRN DuoNebs ABGs as needed Remdesivir start today, to complete 5 days Maximum isolation Cardiovascular: Continuous cardiac monitoring Atropine for bradycardia MAP goal > 65 F/U echocardiogram result GI and Nutrition: Carb consistent diet PRN bowel regimen Dietary f/u Start nutritional supplement Kidney and Electrolytes: Strict monitoring of intake, output and overall fluid balance. Maintain neutral as possible. Avoid nephrotoxic medications. Medications to be dosed according to renal function. Monitor electrolytes and replace as needed. Trend creatinine and BUN. Endocrine: Scheduled Accu-checks before meals and 2h PC Hypoglycemia protocol in place. Infectious Disease: Continue Rocephin and azithromycin, day 3 to complete 5 days Start Remdesivir today, to complete 5 days Procalcitonin every 48 hrs Trend temperature. Panculture if febrile Hematology and Coagulation: Start full dose Lovenox No active bleeding, no coagulopathy to correct, no need to transfuse blood products at the moment. Goal hemoglobin >7g Musculoskeletal and Skin: Bed turn rotation by nursing staff. Daily evaluation for pressure ulcers. PROPHYLAXIS DVT- Full dose Lovenox GI- not indicated CODE STATUS: FULL CODE DISPOSITION: Patient will be transferred to the ICU on high flow nasal cannula, started on Remdesivir.
[2020-04-23] MEDS: Furosemide 20 MG/2 ML VIAL IVPUSH SCH (08:13)
[2020-04-23] MEDS: Aspirin 81 MG Tab.EC PO SCH (08:13)
[2020-04-23] MEDS: Rosuvastatin 10 MG Tab PO SCH (08:13)
[2020-04-23] MEDS: Oxybutynin 5 MG Tab PO SCH (08:13)
[2020-04-23] MEDS: Enoxaparin 100 MG/1 ML Syringe SUBCUT SCH ×2 (12:34→23:50)
[2020-04-23] MEDS ORDERED: Insulin Glarg,Human.Rec.Analog 100 Unit/ML SUBCUT SCH (13:00)
[2020-04-23] MEDS ORDERED: SODIUM CHLORIDE 0.9% ONE (13:30)
[2020-04-23] MEDS ORDERED: [UNRECOGNIZED DRUG - OTHER] ONE (13:30)
[2020-04-23] MEDS: cefTRIAXone 2 GM in Sodium Chloride 0.9% 100 ML IV SCH (14:55)
[2020-04-23] MEDS: Azithromycin 250 MG in Sodium Chloride 0.9% 250 ML IV SCH (15:27)
[2020-04-23] MEDS ORDERED: Insulin Glarg,Human.Rec.Analog 100 Unit/ML SUBCUT ONE (17:27)
[2020-04-23] MEDS ORDERED: Ondansetron 4 MG/2 ML SDV IVPUSH PRN (17:58)
[2020-04-24] MEDS ORDERED: Oxymetazoline 0.05% Nasal Spray 30 ML Bottle NAS ONE (05:48)
[2020-04-24] MEDS: Carboxymethylcellulose Sodium 1% Ophth Gel 15 ML Bottle EYEBOTH PRN (08:12)
[2020-04-24] MEDS: Furosemide 20 MG/2 ML VIAL IVPUSH SCH (08:13)
[2020-04-24] MEDS: Dexamethasone 4 MG/ML SDV IVPUSH SCH (08:13)
[2020-04-24] MEDS: Oxybutynin 5 MG Tab PO SCH (08:15)
[2020-04-24] MEDS: Rosuvastatin 10 MG Tab PO SCH (08:15)
[2020-04-24] MEDS: Aspirin 81 MG Tab.EC PO SCH (08:15)
[2020-04-24] MEDS ORDERED: Insulin Glarg,Human.Rec.Analog 100 Unit/ML SUBCUT SCH ×2 (10:15→21:00)
[2020-04-24] MEDS: Piperacillin/Tazobactam 4.5 GM in Sodium Chloride 0.9% 100 ML IV ONE ×2 (10:24→11:28)
[2020-04-24] MEDS ORDERED: Insulin Glarg,Human.Rec.Analog 100 Unit/ML SUBCUT ONE (10:30)
[2020-04-24] MEDS ORDERED: Levofloxacin/Dextrose 5%-Water 750 MG in Premix Bag 1 BAG IV SCH (10:30)
[2020-04-24] MEDS: Enoxaparin 100 MG/1 ML Syringe SUBCUT SCH ×2 (10:36→23:58)
[2020-04-24] MEDS: REMDESIVIR 100 MG in Sodium Chloride 0.9% 250 ML SCH (12:34)
--- NOTE | 2020-04-24 13:19 | PCM.PN ---
- General Info Date of Service: 04/24/20 Subjective Update: Slept OK Has episode of epistaxis overnight that required Afrin which resolved it BM yesterday States he is not really hungry but did drink all his supplement this morning - Patient Data Vitals - Most Recent: Last Vital Signs Temp 97.1 F 04/24/20 11:37 Pulse 70 04/24/20 11:37 Resp 24 H 04/24/20 13:12 BP 107/69 04/24/20 13:12 Pulse Ox 92 L 04/24/20 13:17 Weight - Most Recent: 88.451 kg - Exam Quality Assessment: Supplemental Oxygen, Urine Catheter General: Alert, Oriented, Cooperative, Mild Distress, Moderate Distress HEENT: Pupils Equal, Pupils Reactive, EOMI, Mucous Membr. Moist/[place] Neck: Supple, Trachea Midline, No JVD, +2 Carotid Pulse wo Bruit. No: Lymphadenopathy Lungs: Decreased Breath Sounds (interval worsening), Crackles, Rales. No: Rhonchi, Rub, Stridor, Wheezing Cardiovascular: Regular Rhythm, Bradycardia. No: Murmurs, Gallops, Rubs GI/Abdominal Exam: Normal Bowel Sounds, Soft, Non-Tender, No Organomegaly, Distended. No: Guarding, Rigid, Rebound Extremities: Normal Inspection, Normal Range of Motion, Non-Tender, Pedal Edema Peripheral Pulses: 2+: Radial (L), Radial (R), Dorsalis Pedis (L), Dorsalis Pedis (R) Skin: Warm, Dry, Intact Neurological: No New Focal Deficit Psy/Mental Status: Normal Affect, Normal Mood Sepsis Event Note - Evaluation Sepsis Screening Result: No Definite Risk - Problem List & Annotations (1) COVID-19 SNOMED Code(s): 941681329 Code(s): U07.1 - COVID-19 Status: Acute Current Visit: Yes (2) Lymphopenia associated with COVID-19 SNOMED Code(s): 983033902 Code(s): U07.1 - COVID-19; D72.810 - LYMPHOCYTOPENIA Status: Acute Current Visit: Yes (3) Acute kidney injury SNOMED Code(s): 33556992, 44559261 Code(s): N17.9 - ACUTE KIDNEY FAILURE, UNSPECIFIED Status: Acute Current Visit: Yes (4) Hyperkalemia SNOMED Code(s): 64463477 Code(s): E87.5 - HYPERKALEMIA Status: Acute Current Visit: Yes (5) Acute hypoxemic respiratory failure SNOMED Code(s): 083498147 Code(s): J96.01 - ACUTE RESPIRATORY FAILURE WITH HYPOXIA Status: Acute Current Visit: Yes (6) New onset atrial fibrillation SNOMED Code(s): 60383504 Code(s): I48.91 - UNSPECIFIED ATRIAL FIBRILLATION Status: Acute Current Visit: Yes (7) Pneumonia SNOMED Code(s): 038584326 Code(s): J18.9 - PNEUMONIA, UNSPECIFIED ORGANISM Status: Acute Current Visit: Yes (8) Weakness SNOMED Code(s): 59727510 Code(s): R53.1 - WEAKNESS Status: Acute Current Visit: Yes (9) Diabetes mellitus SNOMED Code(s): 90808310 Code(s): E11.9 - TYPE 2 DIABETES MELLITUS WITHOUT COMPLICATIONS Status: Acute Current Visit: Yes (10) Ex-smoker SNOMED Code(s): 4789951 Code(s): Z87.891 - PERSONAL HISTORY OF NICOTINE DEPENDENCE Status: Acute Current Visit: Yes (11) Thrombocytopenia SNOMED Code(s): 645940511 Code(s): D69.6 - THROMBOCYTOPENIA, UNSPECIFIED Status: Acute Current Visit: Yes (12) Hypocalcemia SNOMED Code(s): 6276427 Code(s): E83.51 - HYPOCALCEMIA Status: Acute Current Visit: Yes (13) Sinus bradycardia SNOMED Code(s): 80355822 Code(s): R00.1 - BRADYCARDIA, UNSPECIFIED Status: Acute Current Visit: Yes (14) Mild epistaxis SNOMED Code(s): 775252554 Code(s): R04.0 - EPISTAXIS Status: Acute Current Visit: Yes (15) Pneumonia due to 2019 novel coronavirus SNOMED Code(s): 630625285 Code(s): U07.1 - COVID-19; J12.89 - OTHER VIRAL PNEUMONIA Status: Acute Current Visit: Yes - Problem List Review Problem List Initiated/Reviewed/Updated: Yes - Assessment Assessment:: April 19, 2020 -day of admission 84-year-old male with increasing weakness and new onset atrial fibrillation. - Increasing weakness over the last week with shortness of breath. - Ventricular rate is controlled in the 70s. - On no rate controlling medications. Positive d-dimer - D-dimer 7.15 - Possible VTE versus pulmonary embolism - Significant renal dysfunction making CTA relatively contraindicated Elevated proBNP - proBNP 838 - No history of heart failure or hypertension - Pulmonary exam shows wheezes without rales or crackles - Chest x-ray shows a normal heart size and lungs are clear - Patient is on furosemide 40 mg daily per history for unknown reason Hypoxemia - History of smoking with tobacco cessation approximately 35 years ago. 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 - Likely 1 of the causes of his increasing weakness over the last week. - On exam patient did breathe with pursed lips. - Requiring 2-3 L nasal cannula. Acute renal injury - I do not have old records available to me, but emergency department provider stated that his records from [place] showed a creatinine of 1.2-1.8 - Likely multifactorial including prerenal disease - Possibly artificially increasing proBNP and d-dimer - Started on IV fluids in the emergency department Thrombocytopenia unknown cause - Patient states he does not know of any history of having low platelets - Platelets on admission 65,000 Significant concern for pulmonary embolism - Patient does have hypoxemia with shortness of breath and a positive d-dimer. - CTA was not done in the emergency department because of concerns of worsening his renal insufficiency Type 2 diabetes - On oral meds including metformin and glimepiride - Patient states morning blood sugars are usually in the low 100s April 20, 2020 Patient with worsening hypoxemia overnight requiring high flow nasal cannula. CTA of the chest done because of worsening hypoxemia. No pulmonary embolism. Findings consistent with posterior bibasilar atelectasis but difficult to completely exclude small areas of pneumonia. Interstitial changes most likely representing fibrosis. Atelectasis most likely cause of hypoxemia. He has had a low-grade temp of 100.0, but white count is normal. Atelectasis can cause a low-grade temperature. Atrial fibrillation -patient had episode of hemoptysis with heparin. Platelet count is dropping. Ventricular rate has been controlled in the 60s and 70s. Acute renal injury is improving, but did receive IV contrast. Estimated GFR increased to 30 and creatinine decreased to 2.1 Bilateral lower extremity Dopplers were negative for DVT. Elevated d-dimer does not appear to be secondary to clinically significant VTE or pulmonary embolism. Thrombocytopenia -platelets decreased from 65,000-51,000. Type 2 diabetes -blood sugars ranging from 76-170s. Hemoglobin A1c 7.8. April 21, 2020 Hypoxemic respiratory failure likely secondary to atelectasis and possible underlying pneumonia - T-max 99.8 - WBC 3.86 - Procalcitonin 0.27 - He tolerated CPAP overnight and is tolerating high flow nasal cannula. Paroxysmal atrial fibrillation - Patient's rate is back into the 60s and 70s. - Continue to monitor on telemetry. Acute renal injury - Mild improvement in renal function with creatinine of 2.1 and GFR of 30. - No worsening after CTA with contrast Thrombocytopenia -platelets 55,000, stable. Type 2 diabetes -blood sugars stable in the mid 100s April 22, 2020 Hypoxemic respiratory failure secondary to atelectasis and possible underlying pneumonia - T-max 100.6 - WBC decreased to 3.38 - Currently on Rocephin and azithromycin - Oxygenation improving. Currently on high flow nasal cannula with FiO2 at 60% at 30 L. Paroxysmal atrial fibrillation with episodes of sinus versus ectopic atrial bradycardia into the 40s - Patient is asymptomatic without chest pain, increasing shortness of breath, or dizziness. - Unable to anticoagulate secondary to thrombocytopenia - Echocardiogram done today Acute renal injury -improving - Estimated GFR 36, creatinine 1.8, BUN 35 Thrombocytopenia - Platelets stable at 55,000 - No spontaneous bruising or bleeding Type 2 diabetes - Well controlled blood sugars - Fingerstick blood sugars before each meal and bed OVERNIGHT - Initially called by nursing at approximately 1730 secondary to a fever of 102.8. - Subsequent lab work was obtained and a COVID screen was repeated and reported positive - Continued to be on hi-flow at 30L at 60% FiO2, Sat 93% - No beds available at [facility] - Dexamethasone 6mg IV x 1 dose April 23, 2020 Called department of health and Remdesivir was sent here--> patient started on it Labs - WBC down from 4.08 to 3.89 - Lymphocytes down from 490 to 260 - K up from 4.7 to 5.2 - GFR down from 36 to 34 - LDH 393 - Total CK 359 - CRP 15.2 - Glu 98-161 VS trend - BP 119-131/36-91 - Tmax 102.7 - HR 31-63x' - SatO2 > 87% on 60-80% O2Sat drops significantly when patient is supine and improves upon proning Not wanting to eat a lot, states he just has no taste Repeat procalcitonin every 48 h Day 3 of Rocephin and Azithromycin Started Lovenox full dose for anticoagulation Started on nutritional supplement by dietary April 24, 2020 Continues to require high flow oxygen, flow was decreased due to epistaxis episode but that dropped O2 for which it was brought back up Labs - WBC up from 3.89 to 4.89 - Plt up from 67 to 97 - DD down from 9.29 to 7.59 - K down from 5.2 to 5 - GFR stable at 34 - Calcium up from 7.9 to 8.3 - Ferritin up from 907 to 1,528 - LDH down from 393 to 384 - Procalcitonin up from 0.27 on 04/20 to 0.47 on 04/23 - With no change in kidney function antibiotics are likely not working for which regimen is being changed - Glucose POC 181-359 Blood cultures 12/22 negative at day 2 VS trend - MAP 78-98 - HR 53-69 - Tmax 97.7 - Plan Plan:: BY SYSTEMS: Neurology: Minimize central acting medications as possible. Frequent neurologic exams by nursing staff. Respiratory: Pronation as tolerated Continue high flow nasal cannula Goal O2 between 90-94% PRN DuoNebs ABGs as needed Remdesivir day 2, to complete 5 days Maximum isolation Arterial line placement to decrease staff exposure during ABGs Cardiovascular: Continuous cardiac monitoring Atropine for bradycardia MAP goal > 65 F/U echocardiogram result GI and Nutrition: Carb consistent diet PRN bowel regimen Dietary f/u Continue nutritional supplement Kidney and Electrolytes: Strict monitoring of intake, output and overall fluid balance. Maintain neutral as possible. Avoid nephrotoxic medications. Medications to be dosed according to renal function. Monitor electrolytes and replace as needed. Trend creatinine and BUN. Endocrine: Scheduled Accu-checks before meals and 2h PC Hypoglycemia protocol in place. Glargine 12u q/bedtime Infectious Disease: Discontinue Rocephin and Azithromycin Start Levaquin and Zosyn VAncomycin to be started if MRSA PCR is positive Continue Remdesivir day 2 Procalcitonin every 48 hrs Trend temperature and panculture if febrile Hematology and Coagulation: Continue full dose Lovenox No active bleeding, no coagulopathy to correct, no need to transfuse blood products at the moment. Goal hemoglobin >7g Musculoskeletal and Skin: Bed turn rotation by nursing staff. Daily evaluation for pressure ulcers. PROPHYLAXIS DVT- Full dose Lovenox GI- not indicated CODE STATUS: FULL CODE DISPOSITION: Patient will remain in the ICU on high flow nasal cannula, Remdesivir and maximum isolation. PT/OT evaluated prior to transfer and recommended SNF with PT/OT.
--- NOTE | 2020-04-24 15:48 | PCM.PRNOTE ---
- Free Text/Narrative Note: Arterial Line Placement Date: 04/24/2020 Time: 15:05 Indication: Hemodynamic monitoring and arterial access in COVID patient to reduce staff exposure time Attending: Dixie Carl MD A time-out was completed verifying correct patient, procedure, site, positioning, and special equipment if applicable. Allens test was performed to ensure adequate perfusion. The patients right wrist was prepped and draped in sterile fashion. A20G [place] arterial line was introduced into the right radial artery. The catheter was threaded over the guide wire and the needle was removed with appropriate pulsatileblood return. The catheter was then sutured in place to the skin and a sterile dressing applied. Perfusion to the extremity distal to the point of catheter insertion was checked and found to be adequate. Estimated Blood Loss: 10mL The patient tolerated the procedure well and there were no complications.
[2020-04-24] MEDS: Piperacillin/Tazobactam 4.5 GM in Sodium Chloride 0.9% 100 ML IV SCH (18:34)
[2020-04-24] MEDS ORDERED: Insulin Lispro 100 Units/ML 3 ML Vial SUBCUT ONE (21:49)
[2020-04-24] MEDS ORDERED: diphenhydrAMINE 50 MG/ML SDV IVPUSH ONE (21:50)
[2020-04-24] MEDS: Insulin Glarg,Human.Rec.Analog 100 Unit/ML SUBCUT SCH (22:05)
[2020-04-25] MEDS: Piperacillin/Tazobactam 4.5 GM in Sodium Chloride 0.9% 100 ML IV SCH ×3 (03:40→19:21)
[2020-04-25] MEDS ORDERED: Lidocaine 1% 10 ML MDV INJECT ONE (07:57)
[2020-04-25] MEDS: Furosemide 20 MG/2 ML VIAL IVPUSH SCH (08:26)
[2020-04-25] MEDS: Aspirin 81 MG Tab.EC PO SCH (08:29)
[2020-04-25] MEDS: Rosuvastatin 10 MG Tab PO SCH (08:29)
[2020-04-25] MEDS: Oxybutynin 5 MG Tab PO SCH (08:29)
[2020-04-25] MEDS: Dexamethasone 4 MG/ML SDV IVPUSH SCH (08:29)
[2020-04-25] MEDS: Enoxaparin 100 MG/1 ML Syringe SUBCUT SCH ×2 (08:45→20:44)
[2020-04-25] MEDS ORDERED: Lidocaine 2% with EPINEPHrine 1:200,000 20 ML SDV ONE (09:30)
--- NOTE | 2020-04-25 11:01 | CR ---
Chest: Portable view of the chest was obtained. Comparison: Prior chest x-ray of 04/19/20. Increasing lung markings from prior study. Right jugular line is noted with tip lying within superior vena cava. Orthopedic hardware is noted within the sternum. Heart is not enlarged. Tortuous thoracic aorta is noted. Impression: 1. Right jugular line. Tip lies within the region of the superior vena cava. 2. No pneumothorax. 3. Increased central lung markings from prior exam. This could represent rather prominent bronchitis and interstitial pneumonia. Please correlate with the patient's symptoms. Diagnostic code #3 This report was dictated in MDT
[2020-04-25] MEDS ORDERED: Midazolam 50 MG in Sodium Chloride 0.9% 40 ML IV SCH (12:00)
[2020-04-25] MEDS: REMDESIVIR 100 MG in Sodium Chloride 0.9% 250 ML SCH (12:34)
[2020-04-25] MEDS ORDERED: Tocilizumab 400 MG/20 ML SDV SUBCUT SCH (12:45)
--- NOTE | 2020-04-25 16:01 | PCM.PN ---
- General Info Date of Service: 04/25/20 Subjective Update: Worsening shortness of breath Unable to sleep last night No appetite but did drink supplement last night - Patient Data Vitals - Most Recent: Last Vital Signs Temp 98.9 F 04/25/20 08:00 Pulse 58 L 04/24/20 17:00 Resp 20 04/25/20 12:00 BP 107/84 04/25/20 12:00 Pulse Ox 98 04/25/20 12:31 Weight - Most Recent: 88.904 kg - Exam General: Alert, Oriented, Cooperative, Mild Distress, Moderate Distress HEENT: Pupils Equal, Pupils Reactive, Mucous Membr. Moist/Bowen Neck: Supple, Trachea Midline, No JVD, +2 Carotid Pulse wo Bruit. No: Lymphadenopathy Lungs: Decreased Breath Sounds (significant interval worsening), Crackles. No: Rales, Rhonchi, Rub, Stridor, Wheezing Cardiovascular: Regular Rate, Regular Rhythm. No: Murmurs, Gallops, Rubs GI/Abdominal Exam: Normal Bowel Sounds, Soft, Non-Tender, Distended. No: Guarding, Rigid Extremities: Normal Inspection, Pedal Edema, Slow Capillary Refill Peripheral Pulses: 2+: Radial (L), Radial (R) Neurological: No New Focal Deficit Sepsis Event Note - Evaluation Sepsis Screening Result: No Definite Risk - Problem List & Annotations (1) COVID-19 SNOMED Code(s): 077928845 Code(s): U07.1 - COVID-19 Status: Acute Current Visit: Yes (2) Lymphopenia associated with COVID-19 SNOMED Code(s): 056573532 Code(s): U07.1 - COVID-19; D72.810 - LYMPHOCYTOPENIA Status: Acute Current Visit: Yes (3) Acute kidney injury SNOMED Code(s): 71990815, 05724230 Code(s): N17.9 - ACUTE KIDNEY FAILURE, UNSPECIFIED Status: Acute Current Visit: Yes (4) Hyperkalemia SNOMED Code(s): 40091583 Code(s): E87.5 - HYPERKALEMIA Status: Acute Current Visit: Yes (5) Acute hypoxemic respiratory failure SNOMED Code(s): 886960880 Code(s): J96.01 - ACUTE RESPIRATORY FAILURE WITH HYPOXIA Status: Acute Current Visit: Yes (6) New onset atrial fibrillation SNOMED Code(s): 41139852 Code(s): I48.91 - UNSPECIFIED ATRIAL FIBRILLATION Status: Acute Current Visit: Yes (7) Pneumonia SNOMED Code(s): 398108307 Code(s): J18.9 - PNEUMONIA, UNSPECIFIED ORGANISM Status: Acute Current Visit: Yes (8) Weakness SNOMED Code(s): 96483877 Code(s): R53.1 - WEAKNESS Status: Acute Current Visit: Yes (9) Diabetes mellitus SNOMED Code(s): 95106315 Code(s): E11.9 - TYPE 2 DIABETES MELLITUS WITHOUT COMPLICATIONS Status: Acute Current Visit: Yes (10) Ex-smoker SNOMED Code(s): 2095406 Code(s): Z87.891 - PERSONAL HISTORY OF NICOTINE DEPENDENCE Status: Acute Current Visit: Yes (11) Thrombocytopenia SNOMED Code(s): 389039331 Code(s): D69.6 - THROMBOCYTOPENIA, UNSPECIFIED Status: Acute Current Visit: Yes (12) Hypocalcemia SNOMED Code(s): 8105333 Code(s): E83.51 - HYPOCALCEMIA Status: Acute Current Visit: Yes (13) Sinus bradycardia SNOMED Code(s): 01271348 Code(s): R00.1 - BRADYCARDIA, UNSPECIFIED Status: Acute Current Visit: Yes (14) Mild epistaxis SNOMED Code(s): 570124506 Code(s): R04.0 - EPISTAXIS Status: Acute Current Visit: Yes (15) Pneumonia due to 2019 novel coronavirus SNOMED Code(s): 810864195 Code(s): U07.1 - COVID-19; J12.89 - OTHER VIRAL PNEUMONIA Status: Acute Current Visit: Yes (16) Acute respiratory distress syndrome (ARDS) due to 2019 novel coronavirus SNOMED Code(s): 048250581 Code(s): U07.1 - COVID-19; J80 - ACUTE RESPIRATORY DISTRESS SYNDROME Status: Acute Current Visit: Yes - Problem List Review Problem List Initiated/Reviewed/Updated: Yes - Assessment Assessment:: April 19, 2020 -day of admission 84-year-old male with increasing weakness and new onset atrial fibrillation. - Increasing weakness over the last week with shortness of breath. - Ventricular rate is controlled in the 70s. - On no rate controlling medications. Positive d-dimer - D-dimer 7.15 - Possible VTE versus pulmonary embolism - Significant renal dysfunction making CTA relatively contraindicated Elevated proBNP - proBNP 838 - No history of heart failure or hypertension - Pulmonary exam shows wheezes without rales or crackles - Chest x-ray shows a normal heart size and lungs are clear - Patient is on furosemide 40 mg daily per history for unknown reason Hypoxemia - History of smoking with tobacco cessation approximately 35 years ago. 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 - Likely 1 of the causes of his increasing weakness over the last week. - On exam patient did breathe with pursed lips. - Requiring 2-3 L nasal cannula. Acute renal injury - I do not have old records available to me, but emergency department provider stated that his records from [place] showed a creatinine of 1.2-1.8 - Likely multifactorial including prerenal disease - Possibly artificially increasing proBNP and d-dimer - Started on IV fluids in the emergency department Thrombocytopenia unknown cause - Patient states he does not know of any history of having low platelets - Platelets on admission 65,000 Significant concern for pulmonary embolism - Patient does have hypoxemia with shortness of breath and a positive d-dimer. - CTA was not done in the emergency department because of concerns of worsening his renal insufficiency Type 2 diabetes - On oral meds including metformin and glimepiride - Patient states morning blood sugars are usually in the low 100s April 20, 2020 Patient with worsening hypoxemia overnight requiring high flow nasal cannula. CTA of the chest done because of worsening hypoxemia. No pulmonary embolism. Findings consistent with posterior bibasilar atelectasis but difficult to completely exclude small areas of pneumonia. Interstitial changes most likely representing fibrosis. Atelectasis most likely cause of hypoxemia. He has had a low-grade temp of 100.0, but white count is normal. Atelectasis can cause a low-grade temperature. Atrial fibrillation -patient had episode of hemoptysis with heparin. Platelet count is dropping. Ventricular rate has been controlled in the 60s and 70s. Acute renal injury is improving, but did receive IV contrast. Estimated GFR increased to 30 and creatinine decreased to 2.1 Bilateral lower extremity Dopplers were negative for DVT. Elevated d-dimer does not appear to be secondary to clinically significant VTE or pulmonary embolism. Thrombocytopenia -platelets decreased from 65,000-51,000. Type 2 diabetes -blood sugars ranging from 76-170s. Hemoglobin A1c 7.8. April 21, 2020 Hypoxemic respiratory failure likely secondary to atelectasis and possible underlying pneumonia - T-max 99.8 - WBC 3.86 - Procalcitonin 0.27 - He tolerated CPAP overnight and is tolerating high flow nasal cannula. Paroxysmal atrial fibrillation - Patient's rate is back into the 60s and 70s. - Continue to monitor on telemetry. Acute renal injury - Mild improvement in renal function with creatinine of 2.1 and GFR of 30. - No worsening after CTA with contrast Thrombocytopenia -platelets 55,000, stable. Type 2 diabetes -blood sugars stable in the mid 100s April 22, 2020 Hypoxemic respiratory failure secondary to atelectasis and possible underlying pneumonia - T-max 100.6 - WBC decreased to 3.38 - Currently on Rocephin and azithromycin - Oxygenation improving. Currently on high flow nasal cannula with FiO2 at 60% at 30 L. Paroxysmal atrial fibrillation with episodes of sinus versus ectopic atrial bradycardia into the 40s - Patient is asymptomatic without chest pain, increasing shortness of breath, or dizziness. - Unable to anticoagulate secondary to thrombocytopenia - Echocardiogram done today Acute renal injury -improving - Estimated GFR 36, creatinine 1.8, BUN 35 Thrombocytopenia - Platelets stable at 55,000 - No spontaneous bruising or bleeding Type 2 diabetes - Well controlled blood sugars - Fingerstick blood sugars before each meal and bed OVERNIGHT - Initially called by nursing at approximately 1730 secondary to a fever of 102.8. - Subsequent lab work was obtained and a COVID screen was repeated and reported positive - Continued to be on hi-flow at 30L at 60% FiO2, Sat 93% - No beds available at [facility] - Dexamethasone 6mg IV x 1 dose April 23, 2020 Called department of health and Remdesivir was sent here--> patient started on it Labs - WBC down from 4.08 to 3.89 - Lymphocytes down from 490 to 260 - K up from 4.7 to 5.2 - GFR down from 36 to 34 - LDH 393 - Total CK 359 - CRP 15.2 - Glu 98-161 VS trend - BP 119-131/36-91 - Tmax 102.7 - HR 31-63x' - SatO2 > 87% on 60-80% O2Sat drops significantly when patient is supine and improves upon proning Not wanting to eat a lot, states he just has no taste Repeat procalcitonin every 48 h Day 3 of Rocephin and Azithromycin Started Lovenox full dose for anticoagulation Started on nutritional supplement by dietary April 24, 2020 Continues to require high flow oxygen, flow was decreased due to epistaxis episode but that dropped O2 for which it was brought back up Labs - WBC up from 3.89 to 4.89 - Plt up from 67 to 97 - DD down from 9.29 to 7.59 - K down from 5.2 to 5 - GFR stable at 34 - Calcium up from 7.9 to 8.3 - Ferritin up from 907 to 1,528 - LDH down from 393 to 384 - Procalcitonin up from 0.27 on 04/20 to 0.47 on 04/23 - With no change in kidney function antibiotics are likely not working for which regimen is being changed - Glucose POC 181-359 Blood cultures 4/4 negative at day 2 VS trend - MAP 78-98 - HR 53-69 - Tmax 97.7 Glargine 12u q/bedtime Discontinue Rocephin and Azithromycin Start Levaquin and Zosyn Vancomycin to be started if MRSA PCR is positive Continue Remdesivir day 2 Continue full dose Lovenox Oximetry improves significantly, will continue to prone patient as much as tolerated April 25, 2020 Still on high flow, now at 100% which keeps his O2sat at 91% VS trend - BP 107-128/55-84 - HR 58-70x' - Tmax 97.7 - SatO2 > 91% I/Os - UO 2,200 - 24h balance -970 - Balance since admin is promoted to taking care of just feels selfish that the false-negative is +6,818 Labs - WBC up from 4.89 to 9.24 - Platelets up from 97 to 141 - DD down from 7.59 to 4.92 - GFR down from 34 to 25 - LDH up from 384 to 445 - CRP down from 15.2 (04/23) to 7.9 - Procalcitonin 0.47 to 0.46 - AB.34/50.6/62/26.3 Day 2 Levaquin and Zosyn, day 5 of antibiotics Day 3 of Remdesivir Blood cultures 4/4 negative at day 3 MRSA negative - Plan Plan:: BY SYSTEMS: Neurology: Minimize central acting medications as possible. Frequent neurologic exams by nursing staff. Respiratory: Pronation as tolerated Continue high flow nasal cannula Goal O2 between 92-96% Remdesivir day 3, to complete 5 days Maximum isolation Cardiovascular: Continuous cardiac monitoring Atropine for bradycardia MAP goal > 65 F/U echocardiogram result GI and Nutrition: Carb consistent diet PRN bowel regimen Dietary f/u Continue nutritional supplement Kidney and Electrolytes: Strict monitoring of intake, output and overall fluid balance. Maintain neutral as possible. Avoid nephrotoxic medications. Medications to be dosed according to renal function. Monitor electrolytes and replace as needed. Trend creatinine and BUN. Increase Lasix to 20mg IV BID Endocrine: Scheduled Accu-checks before meals and 2h PC Hypoglycemia protocol in place. Glargine 15u q/bedtime Infectious Disease: Continue Levaquin and Zosyn Continue Remdesivir day 3 Start Tocilizumab x 2 doses Procalcitonin every 48 hrs Trend temperature and panculture if febrile Hematology and Coagulation: Continue full dose Lovenox No active bleeding, no coagulopathy to correct, no need to transfuse blood products at the moment. Goal hemoglobin >7g Musculoskeletal and Skin: Bed turn rotation by nursing staff. Daily evaluation for pressure ulcers. PROPHYLAXIS DVT- Full dose Lovenox GI- not indicated CODE STATUS: FULL CODE DISPOSITION: Patient will remain in the ICU on high flow nasal cannula, Remdesivir, maximum isolation and Tocilizumab. PT/OT evaluated prior to transfer and recommended SNF with PT/OT. Central Line - Central Line Insertion Central Line Indication: IV access Site: internal jugular (R) Prep: CDC/MBT Guidelines, Sterile Drapes, Chlorhexidine Lumen: triple Gauge: 7Fr Local Anesthesia - Lidocaine (Xylocaine): 1% Plain Local Anesthetic Volume: 5cc Ultrasound guided: Yes Guidewire and dilator removed intact: Yes Micropuncture kit used: Yes Secured with suture: Yes Complications: No Post placement confirmation: CXR, all ports aspirated, all ports flushed Dressing applied: by provider Arterial Line Insertion - Arterial Line Insertion Arterial Line Indication: other (access to reduce staff exposure) Site: radial (R) Allens test: positive Prep: CDC/MBT Guidelines, Sterile Drapes, Chlorhexidine Gauge: 20Fr Local Anesthesia - Lidocaine (Xylocaine): 1% with EPI Local Anesthetic Volume: 2cc Ultrasound guided: No Secured with suture: Yes Dressing applied: by provider Complications: No
--- NOTE | 2020-04-25 16:01 | PCM.PRNOTE ---
- Free Text/Narrative Note: Arterial Line Placement Date: 04/25/20 Indication: Replacement of prior line Attending: Dixie Carl MD A time-out was completed verifying correct patient, procedure, site, positioning, and special equipment if applicable. Allens test was performed to ensure adequate perfusion. The patients right wrist was prepped and draped in sterile fashion. 1%Lidocaine was used to anesthetize the area. A20G Arrow arterial line was introduced into the right radial artery. The catheter was threaded over the guide wire and the needle was removed with appropriate pulsatileblood return. The catheter was then sutured in place to the skin and a sterile dressing applied. Perfusion to the extremity distal to the point of catheter insertion was checked and found to be adequate. Estimated Blood Loss: 15mL The patient tolerated the procedure well and there were no complications.
--- NOTE | 2020-04-25 16:01 | PCM.PRNOTE ---
- Free Text/Narrative Note: Central Venous Catheter Placement Date: 04/25/20 Time: 10:25-10:38 Indication: IV access to reduce staff exposure Attending: Dixie Carl MD A time-out was completed verifying correct patient, procedure, site, positioning, and special equipment if applicable. The patient was placed in a dependent position appropriate for central line placement based on the vein to becannulated. The patients right neck was prepped and draped in sterile fashion. 1%Lidocainewas used to anesthetize the surrounding skin area. A triple lumen 7-FrenchCordiscatheter was introduced into the the right int ernal jugular using the Seldingertechnique and under ultrasound guidance. The catheter was threaded smoothly over the guide wire and appropriate blood return was obtained. Each lumen of the catheter was evacuated of air and flushed with sterile saline. The catheter was then sutured in place to the skin and a sterile dressing applied. Perfusion to the extremity distal to the point of catheter insertion was checked and found to be adequate. Estimated Blood Loss: 7mL The patient tolerated the procedure well and there were no complications.
[2020-04-25] MEDS: Insulin Glarg,Human.Rec.Analog 100 Unit/ML SUBCUT SCH (20:43)
[2020-04-25] MEDS: Furosemide 40 MG/4 ML VIAL IVPUSH SCH (20:45)
[2020-04-25] MEDS ORDERED: LORazepam 1 MG Tab PO ONE (21:06)
[2020-04-26] MEDS: Piperacillin/Tazobactam 4.5 GM in Sodium Chloride 0.9% 100 ML IV SCH ×2 (03:12→17:25)
[2020-04-26] MEDS ORDERED: Lidocaine 2% with EPINEPHrine 1:200,000 20 ML SDV INJECT ONE ×2 (08:09→09:15)
[2020-04-26] MEDS: Furosemide 40 MG/4 ML VIAL IVPUSH SCH ×2 (09:00→20:03)
[2020-04-26] MEDS: Dexamethasone 4 MG/ML SDV IVPUSH SCH (09:04)
[2020-04-26] MEDS: Rosuvastatin 10 MG Tab PO SCH (09:06)
[2020-04-26] MEDS: Oxybutynin 5 MG Tab PO SCH (09:06)
[2020-04-26] MEDS: Levofloxacin/Dextrose 5%-Water 500 MG in Premix Bag 1 BAG IV SCH (11:19)
[2020-04-26] MEDS ORDERED: Thrombin (Bovine) 5,000 Unit Kit TOP ONE (11:30)
--- NOTE | 2020-04-26 13:34 | PCM.PN ---
- General Info Date of Service: 04/26/20 Subjective Update: Worsening shortness of breath Unable to sleep last night No appetite but did drink supplement last night - Patient Data Vitals - Most Recent: Last Vital Signs Temp 97.2 F 04/26/20 09:20 Pulse 58 L 04/24/20 17:00 Resp 25 H 04/26/20 12:06 BP 105/91 H 04/26/20 12:01 Pulse Ox 94 L 04/26/20 12:06 Weight - Most Recent: 87.997 kg - Exam General: Alert, Moderate Distress, Lethargic HEENT: No: Mucous Membr. Moist/Stickney (oral mucosa is dry, no lesions) Neck: Supple, Trachea Midline, No JVD, Other (significant bleeding from central line insertion site with small hematoma aorund it) Lungs: Decreased Breath Sounds (significantly decreased, very difficult to aus cultate any air entry at all, grunting for expiration). No: Crackles, Rales, Rhonchi Cardiovascular: Regular Rate, Regular Rhythm. No: Murmurs, Gallops, Rubs GI/Abdominal Exam: Normal Bowel Sounds, Soft, Non-Tender, No Abnormal Bruit, Distended. No: Guarding, Rigid, Rebound Extremities: Non-Tender, Pedal Edema, Slow Capillary Refill Peripheral Pulses: 2+: Radial (L), Radial (R) Skin: Cool, Ecchymosis Sepsis Event Note - Evaluation Sepsis Screening Result: No Definite Risk - Problem List & Annotations (1) COVID-19 SNOMED Code(s): 103788022 Code(s): U07.1 - COVID-19 Status: Acute Current Visit: Yes (2) Lymphopenia associated with COVID-19 SNOMED Code(s): 738985749 Code(s): U07.1 - COVID-19; D72.810 - LYMPHOCYTOPENIA Status: Acute Current Visit: Yes (3) Acute kidney injury SNOMED Code(s): 23461924, 89279381 Code(s): N17.9 - ACUTE KIDNEY FAILURE, UNSPECIFIED Status: Acute Current Visit: Yes (4) Hyperkalemia SNOMED Code(s): 70489005 Code(s): E87.5 - HYPERKALEMIA Status: Acute Current Visit: Yes (5) Acute hypoxemic respiratory failure SNOMED Code(s): 350171180 Code(s): J96.01 - ACUTE RESPIRATORY FAILURE WITH HYPOXIA Status: Acute Current Visit: Yes (6) New onset atrial fibrillation SNOMED Code(s): 82023138 Code(s): I48.91 - UNSPECIFIED ATRIAL FIBRILLATION Status: Acute Current Visit: Yes (7) Pneumonia SNOMED Code(s): 577739589 Code(s): J18.9 - PNEUMONIA, UNSPECIFIED ORGANISM Status: Acute Current Visit: Yes (8) Weakness SNOMED Code(s): 76115537 Code(s): R53.1 - WEAKNESS Status: Acute Current Visit: Yes (9) Diabetes mellitus SNOMED Code(s): 53832590 Code(s): E11.9 - TYPE 2 DIABETES MELLITUS WITHOUT COMPLICATIONS Status: Acute Current Visit: Yes (10) Ex-smoker SNOMED Code(s): 0726579 Code(s): Z87.891 - PERSONAL HISTORY OF NICOTINE DEPENDENCE Status: Acute Current Visit: Yes (11) Thrombocytopenia SNOMED Code(s): 100662562 Code(s): D69.6 - THROMBOCYTOPENIA, UNSPECIFIED Status: Acute Current Visit: Yes (12) Hypocalcemia SNOMED Code(s): 1353373 Code(s): E83.51 - HYPOCALCEMIA Status: Acute Current Visit: Yes (13) Sinus bradycardia SNOMED Code(s): 53632416 Code(s): R00.1 - BRADYCARDIA, UNSPECIFIED Status: Acute Current Visit: Yes (14) Mild epistaxis SNOMED Code(s): 557298128 Code(s): R04.0 - EPISTAXIS Status: Acute Current Visit: Yes (15) Pneumonia due to 2019 novel coronavirus SNOMED Code(s): 536391598 Code(s): U07.1 - COVID-19; J12.89 - OTHER VIRAL PNEUMONIA Status: Acute Current Visit: Yes (16) Acute respiratory distress syndrome (ARDS) due to 2019 novel coronavirus SNOMED Code(s): 750538142 Code(s): U07.1 - COVID-19; J80 - ACUTE RESPIRATORY DISTRESS SYNDROME Status: Acute Current Visit: Yes - Problem List Review Problem List Initiated/Reviewed/Updated: Yes - Assessment Assessment:: April 19, 2020 -day of admission 84-year-old male with increasing weakness and new onset atrial fibrillation. - Increasing weakness over the last week with shortness of breath. - Ventricular rate is controlled in the 70s. - On no rate controlling medications. Positive d-dimer - D-dimer 7.15 - Possible VTE versus pulmonary embolism - Significant renal dysfunction making CTA relatively contraindicated Elevated proBNP - proBNP 838 - No history of heart failure or hypertension - Pulmonary exam shows wheezes without rales or crackles - Chest x-ray shows a normal heart size and lungs are clear - Patient is on furosemide 40 mg daily per history for unknown reason Hypoxemia - History of smoking with tobacco cessation approximately 35 years ago. 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 - Likely 1 of the causes of his increasing weakness over the last week. - On exam patient did breathe with pursed lips. - Requiring 2-3 L nasal cannula. Acute renal injury - I do not have old records available to me, but emergency department provider stated that his records from [place] showed a creatinine of 1.2-1.8 - Likely multifactorial including prerenal disease - Possibly artificially increasing proBNP and d-dimer - Started on IV fluids in the emergency department Thrombocytopenia unknown cause - Patient states he does not know of any history of having low platelets - Platelets on admission 65,000 Significant concern for pulmonary embolism - Patient does have hypoxemia with shortness of breath and a positive d-dimer. - CTA was not done in the emergency department because of concerns of worsening his renal insufficiency Type 2 diabetes - On oral meds including metformin and glimepiride - Patient states morning blood sugars are usually in the low 100s April 20, 2020 Patient with worsening hypoxemia overnight requiring high flow nasal cannula. CTA of the chest done because of worsening hypoxemia. No pulmonary embolism. Findings consistent with posterior bibasilar atelectasis but difficult to completely exclude small areas of pneumonia. Interstitial changes most likely representing fibrosis. Atelectasis most likely cause of hypoxemia. He has had a low-grade temp of 100.0, but white count is normal. Atelectasis can cause a low-grade temperature. Atrial fibrillation -patient had episode of hemoptysis with heparin. Platelet count is dropping. Ventricular rate has been controlled in the 60s and 70s. Acute renal injury is improving, but did receive IV contrast. Estimated GFR increased to 30 and creatinine decreased to 2.1 Bilateral lower extremity Dopplers were negative for DVT. Elevated d-dimer does not appear to be secondary to clinically significant VTE or pulmonary embolism. Thrombocytopenia -platelets decreased from 65,000-51,000. Type 2 diabetes -blood sugars ranging from 76-170s. Hemoglobin A1c 7.8. April 21, 2020 Hypoxemic respiratory failure likely secondary to atelectasis and possible underlying pneumonia - T-max 99.8 - WBC 3.86 - Procalcitonin 0.27 - He tolerated CPAP overnight and is tolerating high flow nasal cannula. Paroxysmal atrial fibrillation - Patient's rate is back into the 60s and 70s. - Continue to monitor on telemetry. Acute renal injury - Mild improvement in renal function with creatinine of 2.1 and GFR of 30. - No worsening after CTA with contrast Thrombocytopenia -platelets 55,000, stable. Type 2 diabetes -blood sugars stable in the mid 100s April 22, 2020 Hypoxemic respiratory failure secondary to atelectasis and possible underlying pneumonia - T-max 100.6 - WBC decreased to 3.38 - Currently on Rocephin and azithromycin - Oxygenation improving. Currently on high flow nasal cannula with FiO2 at 60% at 30 L. Paroxysmal atrial fibrillation with episodes of sinus versus ectopic atrial bradycardia into the 40s - Patient is asymptomatic without chest pain, increasing shortness of breath, or dizziness. - Unable to anticoagulate secondary to thrombocytopenia - Echocardiogram done today Acute renal injury -improving - Estimated GFR 36, creatinine 1.8, BUN 35 Thrombocytopenia - Platelets stable at 55,000 - No spontaneous bruising or bleeding Type 2 diabetes - Well controlled blood sugars - Fingerstick blood sugars before each meal and bed OVERNIGHT - Initially called by nursing at approximately 1730 secondary to a fever of 102.8. - Subsequent lab work was obtained and a COVID screen was repeated and reported positive - Continued to be on hi-flow at 30L at 60% FiO2, Sat 93% - No beds available at [place] - Dexamethasone 6mg IV x 1 dose April 23, [address] [facility] and Remdesivir was sent here--> patient started on it Labs - WBC down from 4.08 to 3.89 - Lymphocytes down from 490 to 260 - K up from 4.7 to 5.2 - GFR down from 36 to 34 - LDH 393 - Total CK 359 - CRP 15.2 - Glu 98-161 VS trend - BP 119-131/36-91 - Tmax 102.7 - HR 31-63x' - SatO2 > 87% on 60-80% O2Sat drops significantly when patient is supine and improves upon proning Not wanting to eat a lot, states he just has no taste Repeat procalcitonin every 48 h Day 3 of Rocephin and Azithromycin Started Lovenox full dose for anticoagulation Started on nutritional supplement by dietary April 24, 2020 Continues to require high flow oxygen, flow was decreased due to epistaxis episode but that dropped O2 for which it was brought back up Labs - WBC up from 3.89 to 4.89 - Plt up from 67 to 97 - DD down from 9.29 to 7.59 - K down from 5.2 to 5 - GFR stable at 34 - Calcium up from 7.9 to 8.3 - Ferritin up from 907 to 1,528 - LDH down from 393 to 384 - Procalcitonin up from 0.27 on 04/20 to 0.47 on 04/23 - With no change in kidney function antibiotics are likely not working for which regimen is being changed - Glucose POC 181-359 Blood cultures 12/22 negative at day 2 VS trend - MAP 78-98 - HR 53-69 - Tmax 97.7 Glargine 12u q/bedtime Discontinue Rocephin and Azithromycin Start Levaquin and Zosyn Vancomycin to be started if MRSA PCR is positive Continue Remdesivir day 2 Continue full dose Lovenox Oximetry improves significantly, will continue to prone patient as much as tolerated April 25, 2020 Still on high flow, now at 100% which keeps his O2sat at 91% VS trend - BP 107-128/55-84 - HR 58-70x' - Tmax 97.7 - SatO2 > 91% I/Os - UO 2,200 - 24h balance -970 - Balance since admin is +6,818 Labs - WBC up from 4.89 to 9.24 - Platelets up from 97 to 141 - DD down from 7.59 to 4.92 - GFR down from 34 to 25 - LDH up from 384 to 445 - CRP down from 15.2 (04/23) to 7.9 - Procalcitonin 0.47 to 0.46 - AB.34/50.6/62/26.3 - PaO2/FiO2 ratio: 62, compatible with severe ARDS Blood cultures 12/22 negative at day 3 MRSA negative PLAN: - Continue nutritional supplement - Increase Lasix to 20mg IV BID - Glargine 15u q/bedtime - Continue Levaquin and Zosyn day 2, ATB day 5 - Continue Remdesivir day 3, to complete 5 days - Start Tocilizumab x 2 doses April 26, 2020 Still on high flow nasal cannula at 100% with 50L Oxygenation in low 90's while prone VS trend - MAP 64-91 - Tmax 98.9 - HR 66-92 - SatO2> 87% I/Os - UO: 2,000 - Balance 24h: + 560 - Balance since admission +7,378 Labs - WBC down from 9.24-7.91 - Platelets up from 141-183 - Sodium up from 140-247 - Potassium down from 5.1-4.7 - GFR down from 25-19 - LDH up from 445-556 - CRP down from 7.9-5.7 - Troponins 0.07 - Glucose trend 204-370 - Blood cultures from admission finalized as negative - Plan Plan:: BY SYSTEMS: Neurology: Minimize central acting medications as possible. Frequent neurologic exams by nursing staff. Respiratory: Pronation as tolerated Continue high flow nasal cannula Goal O2 between 92-96% Remdesivir day 3, to complete 5 days Maximum isolation Cardiovascular: Continuous cardiac monitoring Atropine for bradycardia MAP goal > 65 F/U echocardiogram result GI and Nutrition: Carb consistent diet PRN bowel regimen Dietary f/u Continue nutritional supplement Kidney and Electrolytes: Strict intake and output monitoring Maintain neutral as possible. Medications to be dosed according to renal function. Endocrine: Scheduled Accu-checks before meals and 2h PC Hypoglycemia protocol in place. Increase glargine 20u q/bedtime Infectious Disease: Continue Levaquin and Zosyn day 3 Continue Remdesivir day 4 Continue Tocilizumab #2 dose Procalcitonin every 48 hrs Trend temperature and panculture if febrile Hematology and Coagulation: Discontinue Lovenox and aspirin due to active bleeding No coagulopathy to correct, no need to transfuse blood products at the moment. Goal hemoglobin >7g Musculoskeletal and Skin: Bed turn rotation by nursing staff. Daily evaluation for pressure ulcers. PROPHYLAXIS DVT- compression stockings GI- not indicated CODE STATUS: FULL CODE DISPOSITION: Patient will remain in the ICU on high flow nasal cannula, Remdesivir, maximum isolation and Tocilizumab.
[2020-04-26] MEDS: REMDESIVIR 100 MG in Sodium Chloride 0.9% 250 ML SCH (14:18)
[2020-04-26] MEDS: fentaNYL 2,500 MCG in Sodium Chloride 0.9% 200 ML IV SCH (15:28)
[2020-04-26] MEDS: Lactated Ringers 1,000 ML IV SCH ×2 (16:09→21:35)
[2020-04-26] MEDS ORDERED: Succinylcholine 200 MG/10 ML MDV IV ONE (16:40)
[2020-04-26] MEDS ORDERED: Etomidate 2 MG/ML 20 ML SDV IVPUSH ONE (16:40)
[2020-04-26] MEDS: Norepinephrine 4 MG in Dextrose 5% in Water 246 ML IV SCH ×2 (16:46)
--- NOTE | 2020-04-26 16:53 | CR ---
Chest: Frontal view of the chest was obtained. Comparison: Prior chest x-ray of 04/25/20. Diffuse interstitial change is seen within both lungs, worse on the left side. Findings are felt to be fairly stable from prior exam. Endotracheal tube is seen. Tip lies between the clavicles and bulmaro in satisfactory position. Right-sided jugular line is noted. Nasogastric tube is seen coursing off the inferior edge of the film into the stomach. Heart size is normal. Tortuous thoracic aorta is seen. Bony structures are grossly intact. Impression: 1. Satisfactory position of tubes and catheters as described above. 2. Other portions of the chest are stable. Diagnostic code #3 This report was dictated in MDT
--- NOTE | 2020-04-26 16:54 | CR ---
Abdomen: Single supine view of the abdomen was obtained. Tip of end of nasogastric tube within the body of the stomach. Visualized chest shows no change from previous dictation. Bowel gas pattern is within normal limits as seen. Impression: 1. Tip of endotracheal within the body of the stomach. 2. Other portions of the study are stable. Diagnostic code #2 This report was dictated in MDT
--- NOTE | 2020-04-26 18:31 | PCM.PRNOTE ---
- Free Text/Narrative Note: Endotracheal Intubation Date: 04/26/2020 Indication: Airway protection Attending: Dixie Carl MD A time-out was completed verifying correct patient, procedure, site, positioning, and special equipment if applicable. The patient was placed in a flat position. Sedation was obtained using Etomidate and Succinylcholine. The patient was easily ventilated using an Ambu bag. The MAC 4 BLADE was used and inserted into the oropharynx at which time there was a Grade 1 view of the vocal cords. A 7.5-marshallese endotracheal tube was inserted and visualized going through the vocal cords. The stylette was removed. Colorimetric change was visualized on the CO2 meter. Breath sounds were heard in both lung brown equally. A chest x-ray was ordered to assess forpneumothoraxand verifyendotracheal tube placement. Estimated Blood Loss: None The patient tolerated the procedure well and there were no complications.
[2020-04-26] MEDS: Insulin Glarg,Human.Rec.Analog 100 Unit/ML SUBCUT SCH (20:02)
[2020-04-26] MEDS ORDERED: Insulin Glarg,Human.Rec.Analog 100 Unit/ML SUBCUT ONE (20:45)
[2020-04-26] MEDS ORDERED: Insulin Glarg,Human.Rec.Analog 100 Unit/ML SUBCUT SCH (21:00)
[2020-04-26] MEDS ORDERED: Enoxaparin 100 MG/1 ML Syringe SUBCUT SCH (21:00)
[2020-04-27] MEDS ORDERED: Insulin Glarg,Human.Rec.Analog 100 Unit/ML SUBCUT ONE ×2 (00:08→20:30)
[2020-04-27] MEDS ORDERED: Insulin Lispro 100 Units/ML 3 ML Vial SUBCUT ONE ×2 (00:08→02:11)
[2020-04-27] MEDS: Piperacillin/Tazobactam 4.5 GM in Sodium Chloride 0.9% 100 ML IV SCH ×2 (02:13→14:06)
[2020-04-27] MEDS: Norepinephrine 4 MG in Dextrose 5% in Water 246 ML IV SCH ×4 (04:38→10:43)
[2020-04-27] MEDS: Furosemide 40 MG/4 ML VIAL IVPUSH SCH ×3 (08:07→20:11)
[2020-04-27] MEDS: Pantoprazole 40 MG Vial IVPUSH SCH (08:10)
--- NOTE | 2020-04-27 08:28 | PCM.PN ---
- General Info Date of Service: 04/27/20 Subjective Update: INTERVAL HISTORY Vital Signs: MAP trend: 76-115 HR trend: 67-102 Temp: 96.8-97.8 SatO2: >78% Drips and IVF: Versed @ 8 Levophed @ 15 Fentanyl @ 15 Mechanical Ventilation: Intubation day: 04/26/20 Mode: AC/VC Vt: 400 FiO2: 100 PEEP: 16 PIP: 29 Pmean: 20 Vte: 402 Cstat: 47 I/E ratio: 1:2.3 I/Os: UO: 3,325 24h balance: -2,025 New results: WBC up from 7.91 to 9.39 D-Dimer down from 5.09 to 4.59 Na down from 147 to 142 K up from 4.7 to 5.8 GFR down from 19 to 14 PO4 up from 2.8 to 6.5 LDH down from 556 to 470 Trop down from 0.07 to 0.047 CRP down from 5.7 to 3.7 Lines and tubes: Yates / Right radial arterial line 04/25 Right internal jugular 04/25 ETT 04/26 OG tube 04/26 - Patient Data Vitals - Most Recent: Last Vital Signs Temp 100.1 F 04/27/20 08:00 Pulse 72 04/27/20 03:00 Resp 18 04/27/20 08:00 BP 91/51 L 04/27/20 08:00 Pulse Ox 99 04/27/20 08:00 Weight - Most Recent: 89.4 kg - Exam Quality Assessment: Supplemental Oxygen, Central Line/PICC, Urine Catheter, DVT Prophylaxis General: Sedated HEENT: No: Mucous Membr. Moist/[place] (dry) Neck: Trachea Midline, No JVD. No: Lymphadenopathy Lungs: Decreased Breath Sounds, Crackles. No: Rales, Rhonchi, Rub, Stridor, Wheezing Cardiovascular: Regular Rate, Regular Rhythm. No: Murmurs, Gallops, Rubs GI/Abdominal Exam: Soft, Distended. No: Normal Bowel Sounds, Guarding Extremities: Pedal Edema, Slow Capillary Refill Peripheral Pulses: 2+: Radial (L), Radial (R) Skin: Warm, Moist Sepsis Event Note - Evaluation Sepsis Screening Result: No Definite Risk - Problem List & Annotations (1) COVID-19 SNOMED Code(s): 013406737 Code(s): U07.1 - COVID-19 Status: Acute (2) Lymphopenia associated with COVID-19 SNOMED Code(s): 323091380 Code(s): U07.1 - COVID-19; D72.810 - LYMPHOCYTOPENIA Status: Acute (3) Acute kidney injury SNOMED Code(s): 02336908, 47928653 Code(s): N17.9 - ACUTE KIDNEY FAILURE, UNSPECIFIED Status: Acute (4) Hyperkalemia SNOMED Code(s): 20771237 Code(s): E87.5 - HYPERKALEMIA Status: Acute (5) Acute hypoxemic respiratory failure SNOMED Code(s): 755252232 Code(s): J96.01 - ACUTE RESPIRATORY FAILURE WITH HYPOXIA Status: Acute (6) New onset atrial fibrillation SNOMED Code(s): 89859166 Code(s): I48.91 - UNSPECIFIED ATRIAL FIBRILLATION Status: Acute (7) Pneumonia SNOMED Code(s): 178940366 Code(s): J18.9 - PNEUMONIA, UNSPECIFIED ORGANISM Status: Acute (8) Weakness SNOMED Code(s): 01279456 Code(s): R53.1 - WEAKNESS Status: Acute (9) Diabetes mellitus SNOMED Code(s): 84977735 Code(s): E11.9 - TYPE 2 DIABETES MELLITUS WITHOUT COMPLICATIONS Status: Acute (10) Ex-smoker SNOMED Code(s): 1165987 Code(s): Z87.891 - PERSONAL HISTORY OF NICOTINE DEPENDENCE Status: Acute (11) Thrombocytopenia SNOMED Code(s): 487784097 Code(s): D69.6 - THROMBOCYTOPENIA, UNSPECIFIED Status: Acute (12) Hypocalcemia SNOMED Code(s): 9960377 Code(s): E83.51 - HYPOCALCEMIA Status: Acute (13) Sinus bradycardia SNOMED Code(s): 49718380 Code(s): R00.1 - BRADYCARDIA, UNSPECIFIED Status: Acute (14) Mild epistaxis SNOMED Code(s): 778668218 Code(s): R04.0 - EPISTAXIS Status: Acute (15) Pneumonia due to 2019 novel coronavirus SNOMED Code(s): 594686189 Code(s): U07.1 - COVID-19; J12.89 - OTHER VIRAL PNEUMONIA Status: Acute (16) Acute respiratory distress syndrome (ARDS) due to 2019 novel coronavirus SNOMED Code(s): 454624251 Code(s): U07.1 - COVID-19; J80 - ACUTE RESPIRATORY DISTRESS SYNDROME Status: Acute (17) Hyperphosphatemia SNOMED Code(s): 22612473 Code(s): E83.39 - OTHER DISORDERS OF PHOSPHORUS METABOLISM Status: Acute (18) Leukocytosis SNOMED Code(s): 668403370, 484846042 Code(s): D72.829 - ELEVATED WHITE BLOOD CELL COUNT, UNSPECIFIED Status: Acute (19) Acute on chronic renal insufficiency SNOMED Code(s): 604013015 Code(s): N28.9 - DISORDER OF KIDNEY AND URETER, UNSPECIFIED; N18.9 - CHRONIC KIDNEY DISEASE, UNSPECIFIED Status: Acute (20) Healthcare associated bacterial pneumonia SNOMED Code(s): 237983326 Code(s): J15.9 - UNSPECIFIED BACTERIAL PNEUMONIA Status: Acute - Problem List Review Problem List Initiated/Reviewed/Updated: Yes - Assessment Assessment:: April 19, 2020 -day of admission 84-year-old male with increasing weakness and new onset atrial fibrillation. - Increasing weakness over the last week with shortness of breath. - Ventricular rate is controlled in the 70s. - On no rate controlling medications. Positive d-dimer - D-dimer 7.15 - Possible VTE versus pulmonary embolism - Significant renal dysfunction making CTA relatively contraindicated Elevated proBNP - proBNP 838 - No history of heart failure or hypertension - Pulmonary exam shows wheezes without rales or crackles - Chest x-ray shows a normal heart size and lungs are clear - Patient is on furosemide 40 mg daily per history for unknown reason Hypoxemia - History of smoking with tobacco cessation approximately 35 years ago. 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 - Likely 1 of the causes of his increasing weakness over the last week. - On exam patient did breathe with pursed lips. - Requiring 2-3 L nasal cannula. Acute renal injury - I do not have old records available to me, but emergency department provider stated that his records from [place] showed a creatinine of 1.2-1.8 - Likely multifactorial including prerenal disease - Possibly artificially increasing proBNP and d-dimer - Started on IV fluids in the emergency department Thrombocytopenia unknown cause - Patient states he does not know of any history of having low platelets - Platelets on admission 65,000 Significant concern for pulmonary embolism - Patient does have hypoxemia with shortness of breath and a positive d-dimer. - CTA was not done in the emergency department because of concerns of worsening his renal insufficiency Type 2 diabetes - On oral meds including metformin and glimepiride - Patient states morning blood sugars are usually in the low 100s April 20, 2020 Patient with worsening hypoxemia overnight requiring high flow nasal cannula. CTA of the chest done because of worsening hypoxemia. No pulmonary embolism. Findings consistent with posterior bibasilar atelectasis but difficult to completely exclude small areas of pneumonia. Interstitial changes most likely representing fibrosis. Atelectasis most likely cause of hypoxemia. He has had a low-grade temp of 100.0, but white count is normal. Atelectasis can cause a low-grade temperature. Atrial fibrillation -patient had episode of hemoptysis with heparin. Platelet count is dropping. Ventricular rate has been controlled in the 60s and 70s. Acute renal injury is improving, but did receive IV contrast. Estimated GFR increased to 30 and creatinine decreased to 2.1 Bilateral lower extremity Dopplers were negative for DVT. Elevated d-dimer does not appear to be secondary to clinically significant VTE or pulmonary embolism. Thrombocytopenia -platelets decreased from 65,000-51,000. Type 2 diabetes -blood sugars ranging from 76-170s. Hemoglobin A1c 7.8. April 21, 2020 Hypoxemic respiratory failure likely secondary to atelectasis and possible underlying pneumonia - T-max 99.8 - WBC 3.86 - Procalcitonin 0.27 - He tolerated CPAP overnight and is tolerating high flow nasal cannula. Paroxysmal atrial fibrillation - Patient's rate is back into the 60s and 70s. - Continue to monitor on telemetry. Acute renal injury - Mild improvement in renal function with creatinine of 2.1 and GFR of 30. - No worsening after CTA with contrast Thrombocytopenia -platelets 55,000, stable. Type 2 diabetes -blood sugars stable in the mid 100s April 22, 2020 Hypoxemic respiratory failure secondary to atelectasis and possible underlying pneumonia - T-max 100.6 - WBC decreased to 3.38 - Currently on Rocephin and azithromycin - Oxygenation improving. Currently on high flow nasal cannula with FiO2 at 60% at 30 L. Paroxysmal atrial fibrillation with episodes of sinus versus ectopic atrial bradycardia into the 40s - Patient is asymptomatic without chest pain, increasing shortness of breath, or dizziness. - Unable to anticoagulate secondary to thrombocytopenia - Echocardiogram done today Acute renal injury -improving - Estimated GFR 36, creatinine 1.8, BUN 35 Thrombocytopenia - Platelets stable at 55,000 - No spontaneous bruising or bleeding Type 2 diabetes - Well controlled blood sugars - Fingerstick blood sugars before each meal and bed OVERNIGHT - Initially called by nursing at approximately 1730 secondary to a fever of 102.8. - Subsequent lab work was obtained and a COVID screen was repeated and reported positive - Continued to be on hi-flow at 30L at 60% FiO2, Sat 93% - No beds available at [place] - Dexamethasone 6mg IV x 1 dose April 23, 2020 [facility] and Remdesivir was sent here--> patient started on it Labs - WBC down from 4.08 to 3.89 - Lymphocytes down from 490 to 260 - K up from 4.7 to 5.2 - GFR down from 36 to 34 - LDH 393 - Total CK 359 - CRP 15.2 - Glu 98-161 VS trend - BP 119-131/36-91 - Tmax 102.7 - HR 31-63x' - SatO2 > 87% on 60-80% O2Sat drops significantly when patient is supine and improves upon proning Not wanting to eat a lot, states he just has no taste Repeat procalcitonin every 48 h Day 3 of Rocephin and Azithromycin Started Lovenox full dose for anticoagulation Started on nutritional supplement by dietary April 24, 2020 Continues to require high flow oxygen, flow was decreased due to epistaxis episode but that dropped O2 for which it was brought back up Labs - WBC up from 3.89 to 4.89 - Plt up from 67 to 97 - DD down from 9.29 to 7.59 - K down from 5.2 to 5 - GFR stable at 34 - Calcium up from 7.9 to 8.3 - Ferritin up from 907 to 1,528 - LDH down from 393 to 384 - Procalcitonin up from 0.27 on 04/20 to 0.47 on 04/23 - With no change in kidney function antibiotics are likely not working for which regimen is being changed - Glucose POC 181-359 Blood cultures 12/22 negative at day 2 VS trend - MAP 78-98 - HR 53-69 - Tmax 97.7 Glargine 12u q/bedtime Discontinue Rocephin and Azithromycin Start Levaquin and Zosyn Vancomycin to be started if MRSA PCR is positive Continue Remdesivir day 2 Continue full dose Lovenox Oximetry improves significantly, will continue to prone patient as much as tolerated April 25, 2020 Still on high flow, now at 100% which keeps his O2sat at 91% VS trend - BP 107-128/55-84 - HR 58-70x' - Tmax 97.7 - SatO2 > 91% I/Os - UO 2,200 - 24h balance -970 - Balance since admin is +6,818 Labs - WBC up from 4.89 to 9.24 - Platelets up from 97 to 141 - DD down from 7.59 to 4.92 - GFR down from 34 to 25 - LDH up from 384 to 445 - CRP down from 15.2 (8/4) to 7.9 - Procalcitonin 0.47 to 0.46 - AB.34/50.6/62/26.3 - PaO2/FiO2 ratio: 62, compatible with severe ARDS Blood cultures 4/4 negative at day 3 MRSA negative PLAN: - Continue nutritional supplement - Increase Lasix to 20mg IV BID - Glargine 15u q/bedtime - Continue Levaquin and Zosyn day 2, ATB day 5 - Continue Remdesivir day 3, to complete 5 days - Start Tocilizumab x 2 doses April 26, 2020 Still on high flow nasal cannula at 100% with 50L Oxygenation in low 90's while prone VS trend - MAP 64-91 - Tmax 98.9 - HR 66-92 - SatO2> 87% I/Os - UO: 2,000 - Balance 24h: + 560 - Balance since admission +7,378 Labs - WBC down from 9.24-7.91 - Platelets up from 141-183 - Sodium up from 140-247 - Potassium down from 5.1-4.7 - GFR down from 25-19 - LDH up from 445-556 - CRP down from 7.9-5.7 - Troponins 0.07 - Glucose trend 204-370 - Blood cultures from admission finalized as negative PLAN: F/U echocardiogram result Increase glargine 20u q/bedtime Continue Levaquin and Zosyn day 3 Continue Remdesivir day 4 Continue Tocilizumab #2 dose Oxygenation continued to worsen down to 70s Decision was made to intubate Started Levophed - Plan Plan:: BY SYSTEMS: Neurology: Minimize central acting medications as possible. Frequent neurologic exams by nursing staff. Continue sedation with Fentanyl and Versed Respiratory: Pronation at least 12h/ day Continue mechanical ventilation Goal O2 between 92-96% Aspiration precautions Maximum isolation Cardiovascular: Continuous cardiac monitoring Levophed drip MAP goal > 65 F/U echocardiogram result GI and Nutrition: NPO OG tube care OG at intermittent suction Kidney and Electrolytes: Strict intake and output monitoring Maintain neutral as possible. Medications to be dosed according to renal function. [facility] Endocrine: Scheduled Accu-checks before meals and 2h PC Hypoglycemia protocol in place. Increase glargine 30u q/bedtime Infectious Disease: Continue Levaquin and Zosyn day 3 Continue Remdesivir day 4 Continue Tocilizumab #2 dose Procalcitonin every 48 hrs Trend temperature and panculture if febrile Hematology and Coagulation: Discontinue Lovenox and aspirin due to active bleeding No coagulopathy to correct, no need to transfuse blood products at the moment. Goal hemoglobin >7g Musculoskeletal and Skin: Bed turn rotation by nursing staff. Daily evaluation for pressure ulcers. PROPHYLAXIS DVT- compression stockings GI- not indicated CODE STATUS: FULL CODE DISPOSITION: Patient will remain in the ICU on mechanical ventilation, Levaquin, Zosyn, Remdesivir, maximum isolation and Tocilizumab.
[2020-04-27] MEDS: fentaNYL 2,500 MCG in Sodium Chloride 0.9% 200 ML IV SCH (08:40)
[2020-04-27] MEDS ORDERED: Pantoprazole 40 MG in Sodium Chloride 0.9% 100 ML IV SCH (09:00)
[2020-04-27] MEDS: REMDESIVIR 100 MG in Sodium Chloride 0.9% 250 ML SCH (12:48)
[2020-04-27] MEDS: Norepinephrine 16 MG in Dextrose 5% in Water 234 ML IV SCH ×2 (15:30)
[2020-04-27] MEDS ORDERED: Metolazone 2.5 MG Tab PO ONE (19:32)
[2020-04-27] MEDS: Calcium Acetate 667 MG Cap PO SCH ×2 (19:51→23:25)
--- NOTE | 2020-04-27 20:21 | CR ---
Chest: Supine view of the chest was obtained. Comparison: Previous chest x-ray of 02/25/20. Heart size and mediastinum are normal. Interstitial change is noted which appears stable. Endotracheal tube, right jugular line and faintly visualized nasogastric tube remain. Bony structures are grossly intact. Impression: 1. Stable findings. No change from previous chest x-ray is seen. Diagnostic code #3 This report was dictated in MDT
[2020-04-27] MEDS ORDERED: Insulin Glarg,Human.Rec.Analog 100 Unit/ML SUBCUT SCH ×2 (21:00)
[2020-04-28] MEDS: Piperacillin/Tazobactam 4.5 GM in Sodium Chloride 0.9% 100 ML IV SCH ×2 (03:33→18:01)
[2020-04-28] MEDS: Calcium Acetate 667 MG Cap PO SCH ×2 (05:38→11:54)
[2020-04-28] MEDS: fentaNYL 2,500 MCG in Sodium Chloride 0.9% 200 ML IV SCH (05:38)
[2020-04-28] MEDS: Norepinephrine 16 MG in Dextrose 5% in Water 234 ML IV SCH ×2 (05:39)
[2020-04-28] MEDS: Pantoprazole 40 MG Vial IVPUSH SCH (09:19)
[2020-04-28] MEDS: Furosemide 40 MG/4 ML VIAL IVPUSH SCH (09:19)
[2020-04-28] MEDS: Levofloxacin/Dextrose 5%-Water 500 MG in Premix Bag 1 BAG IV SCH (09:30)
--- NOTE | 2020-04-28 11:09 | PCM.PN ---
- General Info Date of Service: 04/27/20 - Patient Data Vitals - Most Recent: Last Vital Signs Temp 97.5 F 04/28/20 10:00 Pulse 90 04/28/20 05:00 Resp 18 04/28/20 10:00 BP 113/52 L 04/28/20 10:00 Pulse Ox 99 04/28/20 10:00 Weight - Most Recent: 89.542 kg I&O - Last 24 Hours: Intake & Output 04/27/20 04/28/20 04/28/20 22:59 06:59 14:59 Intake Total 511 775 Output Total 45 160 20 Balance 466 615 -20 Lab Results Last 24 Hours: Laboratory Results - last 24 hr 04/27/20 04/27/20 04/27/20 Range/Units 12:40 18:07 23:37 WBC (4.23-9.07) K/mm3 RBC (4.63-6.08) M/mm3 Hgb (13.7-17.5) gm/dl Hct (40.1-51.0) % MCV (79.0-92.2) fl MCH (25.7-32.2) pg MCHC (32.2-35.5) g/dl RDW Std Deviation (35.1-43.9) fL Plt Count (163-337) K/mm3 MPV (9.4-12.3) fl Neutrophils % (Manual) (40-60) % Band Neutrophils % (0-10) % Lymphocytes % (Manual) (20-40) % Atypical Lymphs % % Monocytes % (Manual) (2-10) % Eosinophils % (Manual) (0.8-7.0) % Basophils % (Manual) (0.2-1.2) Platelet Estimate Anisocytosis Macrocytosis [place] Cells RBC Morph Comment PT (9.7-12.0) SECONDS INR D-Dimer, Quantitative (0.19-0.50) mg/L Sodium (136-145) mEq/L Potassium (3.5-5.1) mEq/L Chloride (98-107) mEq/L Carbon Dioxide (21-32) mEq/L Anion Gap (5-15) BUN (7-18) mg/dL Creatinine (0.7-1.3) mg/dL Est Cr Clr Drug Dosing mL/min Estimated GFR (MDRD) (>60) mL/min BUN/Creatinine Ratio (14-18) Glucose (83-115) mg/dL POC Glucose 241 H 283 H 264 H (83-110) mg/dL Calcium (8.5-10.1) mg/dL Phosphorus (2.6-4.7) mg/dL Magnesium (1.8-2.4) mg/dl Ferritin (26-388) ng/ml Total Bilirubin (0.2-1.0) mg/dL AST (15-37) U/L ALT (16-63) U/L Alkaline Phosphatase (46-116) U/L Lactate Dehydrogenase (85-227) U/L Creatine Kinase (39-308) U/L Troponin I (0.00-0.056) ng/mL C-Reactive Protein (<1.0) mg/dL NT-Pro-B Natriuret Pep (0-450) pg/mL Total Protein (6.4-8.2) g/dl Albumin (3.4-5.0) g/dl Globulin gm/dL Albumin/Globulin Ratio (1-2) 04/28/20 04/28/20 04/28/20 Range/Units 05:35 05:35 05:35 WBC 15.00 H (4.23-9.07) K/mm3 RBC 4.59 L (4.63-6.08) M/mm3 Hgb 14.5 (13.7-17.5) gm/dl Hct 45.7 (40.1-51.0) % MCV 99.6 H (79.0-92.2) fl MCH 31.6 (25.7-32.2) pg MCHC 31.7 L (32.2-35.5) g/dl RDW Std Deviation 52.0 H (35.1-43.9) fL Plt Count 189 (163-337) K/mm3 MPV 9.1 L (9.4-12.3) fl Neutrophils % (Manual) 81 H (40-60) % Band Neutrophils % 0 (0-10) % Lymphocytes % (Manual) 16 L (20-40) % Atypical Lymphs % 0 % Monocytes % (Manual) 3 (2-10) % Eosinophils % (Manual) 0 L (0.8-7.0) % Basophils % (Manual) 0 L (0.2-1.2) Platelet Estimate Adequate Anisocytosis 2+ moderate Macrocytosis 1+ slight [place] Cells 1+ slight RBC Morph Comment Not Reportable PT 13.0 H (9.7-12.0) SECONDS INR 1.22 D-Dimer, Quantitative 7.76 H (0.19-0.50) mg/L Sodium 139 (136-145) mEq/L Potassium 7.3 H* D (3.5-5.1) mEq/L Chloride 102 (98-107) mEq/L Carbon Dioxide 24 (21-32) mEq/L Anion Gap 20.3 H (5-15) BUN 125 H (7-18) mg/dL Creatinine 7.2 H D (0.7-1.3) mg/dL Est Cr Clr Drug Dosing 7.15 mL/min Estimated GFR (MDRD) 7 (>60) mL/min BUN/Creatinine Ratio 17.4 (14-18) Glucose 352 H (83-115) mg/dL POC Glucose (83-110) mg/dL Calcium 8.2 L (8.5-10.1) mg/dL Phosphorus 9.4 H (2.6-4.7) mg/dL Magnesium 3.2 H (1.8-2.4) mg/dl Ferritin (26-388) ng/ml Total Bilirubin 0.6 (0.2-1.0) mg/dL AST 66 H (15-37) U/L ALT 93 H (16-63) U/L Alkaline Phosphatase 114 (46-116) U/L Lactate Dehydrogenase 455 H (85-227) U/L Creatine Kinase 488 H (39-308) U/L Troponin I 0.092 H* (0.00-0.056) ng/mL C-Reactive Protein 2.8 H* (<1.0) mg/dL NT-Pro-B Natriuret Pep (0-450) pg/mL Total Protein 6.5 (6.4-8.2) g/dl Albumin 2.4 L (3.4-5.0) g/dl Globulin 4.1 gm/dL Albumin/Globulin Ratio 0.6 L (1-2) 04/28/20 04/28/20 04/28/20 Range/Units 05:35 05:35 05:37 WBC (4.23-9.07) K/mm3 RBC (4.63-6.08) M/mm3 Hgb (13.7-17.5) gm/dl Hct (40.1-51.0) % MCV (79.0-92.2) fl MCH (25.7-32.2) pg MCHC (32.2-35.5) g/dl RDW Std Deviation (35.1-43.9) fL Plt Count (163-337) K/mm3 MPV (9.4-12.3) fl Neutrophils % (Manual) (40-60) % Band Neutrophils % (0-10) % Lymphocytes % (Manual) (20-40) % Atypical Lymphs % % Monocytes % (Manual) (2-10) % Eosinophils % (Manual) (0.8-7.0) % Basophils % (Manual) (0.2-1.2) Platelet Estimate Anisocytosis Macrocytosis [place] Cells RBC Morph Comment PT (9.7-12.0) SECONDS INR D-Dimer, Quantitative (0.19-0.50) mg/L Sodium (136-145) mEq/L Potassium (3.5-5.1) mEq/L Chloride (98-107) mEq/L Carbon Dioxide (21-32) mEq/L Anion Gap (5-15) BUN (7-18) mg/dL Creatinine (0.7-1.3) mg/dL Est Cr Clr Drug Dosing mL/min Estimated GFR (MDRD) (>60) mL/min BUN/Creatinine Ratio (14-18) Glucose (83-115) mg/dL POC Glucose 321 H (83-110) mg/dL Calcium (8.5-10.1) mg/dL Phosphorus (2.6-4.7) mg/dL Magnesium (1.8-2.4) mg/dl Ferritin 786 H (26-388) ng/ml Total Bilirubin (0.2-1.0) mg/dL AST (15-37) U/L ALT (16-63) U/L Alkaline Phosphatase (46-116) U/L Lactate Dehydrogenase (85-227) U/L Creatine Kinase (39-308) U/L Troponin I (0.00-0.056) ng/mL C-Reactive Protein (<1.0) mg/dL NT-Pro-B Natriuret Pep 1422 H (0-450) pg/mL Total Protein (6.4-8.2) g/dl Albumin (3.4-5.0) g/dl Globulin gm/dL Albumin/Globulin Ratio (1-2) Devan Results Last 24 Hours: Microbiology 04/21/20 14:45 Aerobic Blood Culture - Preliminary Blood - Venous - Lab Draw NO GROWTH AFTER 6 DAYS Anaerobic Blood Culture - Final 04/21/20 14:32 Aerobic Blood Culture - Preliminary Blood - Venous NO GROWTH AFTER 6 DAYS Anaerobic Blood Culture - Preliminary NO GROWTH AFTER 6 DAYS Med Orders - Current: Current Medications Acetaminophen (Tylenol) 650 mg PO Q4H PRN PRN Reason: Pain (Mild 1-3)/fever Last Admin: 04/23/20 05:09 Dose: 650 mg Documented by: Albuterol (Proventil Neb Soln) 2.5 mg NEB Q2H PRN PRN Reason: Shortness of Breath Artificial Tears (Refresh Liquigel 1%) 0 ml EYEBOTH ASDIRECTED PRN PRN Reason: Dry Eyes Last Admin: 04/24/20 08:12 Dose: 1 drop Documented by: Calcium Acetate (Phoslo) 667 mg PO Q6HR [facility] Last Admin: 04/28/20 05:38 Dose: 667 mg Documented by: Furosemide (Lasix) 40 mg IVPUSH BID [facility] Last Admin: 04/28/20 09:19 Dose: 40 mg Documented by: Fentanyl 2,500 mcg/ Sodium (Chloride) 250 mls @ 8.89 mls/hr IV TITRATE [facility]; Protocol Last Titration: 04/28/20 08:10 Dose: 0 mcg/kg/hr, 0 mls/hr Documented by: Piperacillin Sod/Tazobactam (Sod 4.5 gm/ Sodium Chloride) 100 mls @ 25 mls/hr IV Q12H [facility] Last Admin: 04/28/20 03:33 Dose: 25 mls/hr Documented by: Levofloxacin/Dextrose 500 mg/ (Premix) 100 mls @ 100 mls/hr IV Q48H [facility] Last Admin: 04/28/20 09:30 Dose: 100 mls/hr Documented by: Midazolam HCl 100 mg/ Sodium (Chloride) 100 mls @ 1.778 mls/hr IV TITRATE [facility]; Protocol Last Titration: 04/28/20 08:10 Dose: 0 mg/kg/hr, 0 mls/hr Documented by: Norepinephrine Bitartrate 16 (mg/ Dextrose/Water) 250 mls @ 14.063 mls/hr IV TITRATE [facility]; Protocol Last Titration: 04/28/20 09:18 Dose: 17 mcg/min, 15.938 mls/hr Documented by: Insulin Glargine (Lantus) 30 unit SUBCUT BEDTIME [facility] Last Admin: 04/27/20 19:59 Dose: 30 units Documented by: Ondansetron HCl (Zofran) 4 mg IVPUSH Q8H PRN PRN Reason: Nausea Last Admin: 04/23/20 18:05 Dose: 4 mg Documented by: Pantoprazole Sodium (Protonix Iv) 40 mg IVPUSH Q24H [facility] Last Admin: 04/28/20 09:19 Dose: 40 mg Documented by: Sodium Chloride (Saline Flush) 10 ml FLUSH ASDIRECTED PRN PRN Reason: Keep Vein Open Discontinued Medications Albuterol/Ipratropium (Duoneb 3.0-0.5 Mg/3 Ml) 3 ml NEB Q8HRRT [facility] Last Admin: 04/23/20 06:39 Dose: Not Given Documented by: Albuterol/Ipratropium (Duoneb 3.0-0.5 Mg/3 Ml) 3 ml NEB ONETIME ONE Stop: 04/19/20 21:18 Last Admin: 04/19/20 22:05 Dose: 3 ml Documented by: Apixaban (Eliquis) 2.5 mg PO BID [facility] Last Admin: 04/19/20 22:37 Dose: Not Given Documented by: Aspirin (Halfprin) 81 mg PO DAILY [facility] Last Admin: 04/25/20 08:29 Dose: 81 mg Documented by: Cocaine HCl (Cocaine Hcl) 1 ml TOP ONETIME ONE Stop: 04/24/20 12:04 Last Admin: 04/24/20 12:23 Dose: 1 ml Documented by: Dexamethasone (Dexamethasone) 6 mg IVPUSH DAILY [facility] Stop: 05/02/20 09:01 Last Admin: 04/26/20 09:04 Dose: 6 mg Documented by: Diphenhydramine HCl (Benadryl) 12.5 mg IVPUSH ONETIME ONE Stop: 04/24/20 21:51 Last Admin: 04/24/20 22:08 Dose: 12.5 mg Documented by: Enoxaparin Sodium (Lovenox) 90 mg SUBCUT Q12H [facility] Last Admin: 04/24/20 23:58 Dose: 90 mg Documented by: Enoxaparin Sodium (Lovenox) 90 mg SUBCUT Q12H [facility] Last Admin: 04/25/20 20:44 Dose: 90 mg Documented by: Enoxaparin Sodium (Lovenox) 90 mg SUBCUT BEDTIME [facility] Etomidate (Amidate) 20 mg IVPUSH ONETIME ONE Stop: 04/26/20 16:41 Last Admin: 04/26/20 17:34 Dose: 20 mg Documented by: Furosemide (Lasix) 40 mg IVPUSH NOW ONE Stop: 04/20/20 10:29 Last Admin: 04/20/20 11:43 Dose: 40 mg Documented by: Furosemide (Lasix) 40 mg IVPUSH NOW ONE Stop: 04/22/20 16:16 Last Admin: 04/22/20 17:01 Dose: 40 mg Documented by: Furosemide (Lasix) 20 mg IVPUSH DAILY [facility] Last Admin: 04/25/20 08:26 Dose: 20 mg Documented by: Heparin Sodium (Porcine) (Heparin Sodium) 5,000 units IVPUSH ONETIME ONE Stop: 04/19/20 21:32 Last Admin: 04/19/20 22:37 Dose: 5,000 units Documented by: Lactated Ringer's (Ringers, Lactated) 1,000 mls @ 100 mls/hr IV ASDIRECTED [facility] Last Admin: 04/20/20 13:26 Dose: 100 mls/hr Documented by: Heparin Sodium/Dextrose (Heparin 25,000 Units In D5w 500 Ml) 25,000 units in 500 mls @ 19.469 mls/hr IV TITRATE [facility]; Protocol Last Admin: 04/19/20 22:42 Dose: 11 units/kg/hr, 19.469 mls/hr Documented by: Heparin Sodium/Dextrose (Heparin 25,000 Units In D5w 500 Ml) 25,000 units in 500 mls @ 8.868 mls/hr IV TITRATE [facility]; Protocol Sodium Chloride (Normal Saline) 100 mls @ 75 mls/hr IV ASDIRECTED [facility] Stop: 04/20/20 12:00 Last Admin: 04/20/20 09:11 Dose: 75 mls/hr Documented by: Lactated Ringer's (Ringers, Lactated) 1,000 mls @ 50 mls/hr IV ASDIRECTED [facility] Last Admin: 04/22/20 02:00 Dose: 50 mls/hr Documented by: Ceftriaxone Sodium 2 gm/ (Sodium Chloride) 100 mls @ 200 mls/hr IV Q24H [facility] Last Admin: 04/23/20 14:55 Dose: 200 mls/hr Documented by: Azithromycin 500 mg/ Sodium (Chloride) 250 mls @ 250 mls/hr IV ONETIME ONE Stop: 04/21/20 14:56 Last Admin: 04/21/20 15:53 Dose: 250 mls/hr Documented by: Azithromycin 250 mg/ Sodium (Chloride) 250 mls @ 250 mls/hr IV Q24H [facility] Stop: 04/26/20 14:01 Last Admin: 04/23/20 15:27 Dose: 250 mls/hr Documented by: Non-Formulary Medication 2 (each/ Sodium Chloride) 250 mls @ 250 mls/hr .XX ONETIME ONE Stop: 04/23/20 14:29 Last Admin: 04/23/20 13:27 Dose: 250 mls/hr Documented by: REMDESIVIR (EUA) 100 mg/ (Sodium Chloride) 250 mls @ 250 mls/hr .XX Q24H [facility] Stop: 04/27/20 15:00 Last Admin: 04/27/20 12:48 Dose: 250 mls/hr Documented by: Levofloxacin/Dextrose 750 mg/ (Premix) 150 mls @ 100 mls/hr IV Q48H [facility] Last Admin: 04/24/20 10:29 Dose: 100 mls/hr Documented by: Piperacillin Sod/Tazobactam (Sod 4.5 gm/ Sodium Chloride) 100 mls @ 200 mls/hr IV ONETIME ONE Stop: 04/24/20 11:59 Last Admin: 04/24/20 11:28 Dose: 200 mls/hr Documented by: Piperacillin Sod/Tazobactam (Sod 4.5 gm/ Sodium Chloride) 100 mls @ 25 mls/hr IV Q8H [facility] Last Admin: 04/26/20 03:12 Dose: 25 mls/hr Documented by: Midazolam HCl 50 mg/ Sodium (Chloride) 50 mls @ 1.778 mls/hr IV TITRATE [facility]; Protocol Last Titration: 04/26/20 19:50 Dose: 0.09 mg/kg/hr, 8 mls/hr Documented by: Tocilizumab 400 mg/Tocilizumab 200 mg/ Sodium Chloride 100 mls @ 100 mls/hr IV ONETIME ONE Stop: 04/25/20 17:59 Last Admin: 04/25/20 16:17 Dose: 100 mls/hr Documented by: Tocilizumab 400 mg/Tocilizumab 200 mg/ Sodium Chloride 100 mls @ 100 mls/hr IV ONETIME ONE Stop: 04/26/20 16:59 Last Admin: 04/26/20 17:05 Dose: Not Given Documented by: Lactated Ringer's (Ringers, Lactated) 1,000 mls @ 75 mls/hr IV ASDIRECTED [facility] Last Admin: 04/26/20 21:35 Dose: 75 mls/hr Documented by: Norepinephrine Bitartrate 4 mg (/ Dextrose/Water) 250 mls @ 7.5 mls/hr IV TITRATE [facility]; Protocol Stop: 04/27/20 16:00 Last Admin: 04/27/20 10:43 Dose: 15 mcg/min, 56.25 mls/hr Documented by: Pantoprazole Sodium 40 mg/ (Sodium Chloride) 100 mls @ 200 mls/hr IV DAILY [facility] Insulin Glargine (Lantus) 5 unit SUBCUT Q24H [facility] Last Admin: 04/23/20 12:35 Dose: 5 units Documented by: Insulin Glargine (Lantus) 5 unit SUBCUT ONETIME ONE Stop: 04/23/20 17:28 Last Admin: 04/23/20 17:50 Dose: 5 units Documented by: Insulin Glargine (Lantus) 12 unit SUBCUT BEDTIME [facility] Last Admin: 04/24/20 21:48 Dose: Not Given Documented by: Insulin Glargine (Lantus) 12 unit SUBCUT ONETIME ONE Stop: 04/24/20 10:31 Last Admin: 04/24/20 10:28 Dose: 12 units Documented by: Insulin Glargine (Lantus) 15 unit SUBCUT BEDTIME [facility] Last Admin: 04/26/20 20:02 Dose: 15 units Documented by: Insulin Glargine (Lantus) 20 unit SUBCUT BEDTIME [facility] Insulin Glargine (Lantus) 20 unit SUBCUT BEDTIME [facility] Insulin Glargine (Lantus) 5 unit SUBCUT ONETIME ONE Stop: 04/26/20 20:46 Last Admin: 04/26/20 21:36 Dose: 5 unit Documented by: Insulin Glargine (Lantus) 10 unit SUBCUT ONETIME ONE Stop: 04/27/20 00:09 Last Admin: 04/27/20 00:19 Dose: 10 units Documented by: Insulin Human Lispro (Humalog) 0 unit SUBCUT QIDACANDBED [facility]; Protocol Last Admin: 04/23/20 12:06 Dose: Not Given Documented by: Insulin Human Lispro (Humalog) 10 unit SUBCUT ONETIME ONE Stop: 04/24/20 21:50 Last Admin: 04/24/20 22:06 Dose: 10 units Documented by: Insulin Human Lispro (Humalog) 10 unit SUBCUT ONETIME ONE Stop: 04/27/20 00:09 Last Admin: 04/27/20 00:19 Dose: 10 units Documented by: Insulin Human Lispro (Humalog) 10 unit SUBCUT ONETIME ONE Stop: 04/27/20 02:12 Last Admin: 04/27/20 02:14 Dose: 10 units Documented by: Iopamidol (Isovue-370 (76%)) 100 ml IVPUSH ONETIME ONE Stop: 04/20/20 08:40 Last Admin: 04/20/20 09:11 Dose: 100 ml Documented by: Lidocaine HCl (Xylocaine 1%) 10 ml INJECT ONETIME ONE Stop: 04/25/20 07:58 Last Admin: 04/25/20 08:48 Dose: 10 ml Documented by: Lidocaine/Epinephrine (Xylocaine-Mpf 2%-Epi 1:200,000) 0 ml .XX ONETIME ONE Stop: 04/25/20 09:31 Last Admin: 04/25/20 09:58 Dose: 10 ml Documented by: Lidocaine/Epinephrine (Xylocaine-Mpf 2%-Epi 1:200,000) 20 ml INJECT ONETIME ONE Stop: 04/26/20 08:10 Last Admin: 04/26/20 08:31 Dose: 20 ml Documented by: Lidocaine/Epinephrine (Xylocaine-Mpf 2%-Epi 1:200,000) 20 ml INJECT ONETIME ONE Stop: 04/26/20 09:16 Last Admin: 04/26/20 09:40 Dose: 20 ml Documented by: Lorazepam (Ativan) 1 mg PO ONETIME ONE Stop: 04/25/20 21:07 Last Admin: 04/25/20 21:27 Dose: 1 mg Documented by: Magnesium Hydroxide (Milk Of Magnesia) 30 ml PO ONETIME ONE Stop: 04/23/20 05:31 Last Admin: 04/23/20 05:09 Dose: 30 ml Documented by: Metolazone (Zaroxolyn) 2.5 mg PO ONETIME ONE Stop: 04/27/20 19:33 Last Admin: 04/27/20 19:40 Dose: 2.5 mg Documented by: Oxybutynin Chloride (Oxybutynin) 5 mg PO DAILY [facility] Last Admin: 04/20/20 10:29 Dose: Not Given Documented by: Oxybutynin Chloride (Oxybutynin) 5 mg PO DAILY [facility] Last Admin: 04/26/20 09:06 Dose: 5 mg Documented by: Oxymetazoline HCl (Nasal Decongestant [place]) 1 ml [place] ONETIME ONE Stop: 04/24/20 05:49 Last Admin: 04/24/20 06:11 Dose: 1 ml Documented by: Atorvastatin 40 Mg Patient's Own Med 0 each PO BEDTIME [facility] Last Admin: 04/20/20 08:32 Dose: Not Given Documented by: Rosuvastatin Calcium (Crestor) 10 mg PO DAILY [facility] Last Admin: 04/20/20 10:51 Dose: 10 mg Documented by: Rosuvastatin Calcium (Crestor) 10 mg PO DAILY [facility] Last Admin: 04/26/20 09:06 Dose: 10 mg Documented by: Sodium Chloride (Saline Flush) 10 ml FLUSH ONETIME PRN PRN Reason: IV FLUSH Stop: 04/20/20 12:00 Last Admin: 04/20/20 09:11 Dose: 10 ml Documented by: Succinylcholine Chloride (Quelicin) 100 mg IV ONETIME ONE Stop: 04/26/20 16:41 Last Admin: 04/26/20 17:46 Dose: 100 mg Documented by: Thrombin (Thrombin-i) 5,000 unit TOP ONETIME ONE Stop: 04/26/20 11:31 Last Admin: 04/26/20 11:23 Dose: 5,000 unit Documented by: Tocilizumab (Actemra) 700 mg SUBCUT Q12H [facility] Stop: 04/26/20 00:46 Sepsis Event Note - Evaluation Sepsis Screening Result: Severe Sepsis Risk - Focused Exam Vital Signs: Vital Signs Temp Pulse Resp BP BP Pulse Ox Pulse Ox 04/28/20 10:00 97.5 F 18 113/52 L 99 04/28/20 09:06 99 04/28/20 09:00 97.0 F 21 H 112/52 L 96 04/28/20 08:00 96.8 F L 18 106/49 L 98 04/28/20 07:00 96.8 F L 18 120/56 L 98 04/28/20 06:00 96.8 F L 18 114/56 L 99 04/28/20 05:00 96.8 F L 90 18 117/56 L 99 04/28/20 04:00 97.0 F 18 123/68 99 04/28/20 03:00 97.0 F 18 120/62 99 04/28/20 02:00 97.3 F 18 121/61 99 04/28/20 01:00 97.5 F 84 18 123/62 99 04/28/20 00:00 97.7 F 18 111/71 99 Date Exam was Performed: 04/28/20 Time Exam was Performed: 11:09 - Problem List & Annotations (1) COVID-19 SNOMED Code(s): 089307836 Code(s): U07.1 - COVID-19 Status: Acute (2) Lymphopenia associated with COVID-19 SNOMED Code(s): 617416005 Code(s): U07.1 - COVID-19; D72.810 - LYMPHOCYTOPENIA Status: Acute (3) Acute kidney injury SNOMED Code(s): 72505456, 85966600 Code(s): N17.9 - ACUTE KIDNEY FAILURE, UNSPECIFIED Status: Acute (4) Hyperkalemia SNOMED Code(s): 27564284 Code(s): E87.5 - HYPERKALEMIA Status: Acute (5) Acute hypoxemic respiratory failure SNOMED Code(s): 491838726 Code(s): J96.01 - ACUTE RESPIRATORY FAILURE WITH HYPOXIA Status: Acute (6) New onset atrial fibrillation SNOMED Code(s): 05590883 Code(s): I48.91 - UNSPECIFIED ATRIAL FIBRILLATION Status: Acute (7) Pneumonia SNOMED Code(s): 480669988 Code(s): J18.9 - PNEUMONIA, UNSPECIFIED ORGANISM Status: Acute (8) Weakness SNOMED Code(s): 70924002 Code(s): R53.1 - WEAKNESS Status: Acute (9) Diabetes mellitus SNOMED Code(s): 01801877 Code(s): E11.9 - TYPE 2 DIABETES MELLITUS WITHOUT COMPLICATIONS Status: Acute (10) Ex-smoker SNOMED Code(s): 6690023 Code(s): Z87.891 - PERSONAL HISTORY OF NICOTINE DEPENDENCE Status: Acute (11) Thrombocytopenia SNOMED Code(s): 844321827 Code(s): D69.6 - THROMBOCYTOPENIA, UNSPECIFIED Status: Acute (12) Hypocalcemia SNOMED Code(s): 2408801 Code(s): E83.51 - HYPOCALCEMIA Status: Acute (13) Sinus bradycardia SNOMED Code(s): 13984295 Code(s): R00.1 - BRADYCARDIA, UNSPECIFIED Status: Acute (14) Mild epistaxis SNOMED Code(s): 626346717 Code(s): R04.0 - EPISTAXIS Status: Acute (15) Pneumonia due to 2019 novel coronavirus SNOMED Code(s): 159569124 Code(s): U07.1 - COVID-19; J12.89 - OTHER VIRAL PNEUMONIA Status: Acute (16) Acute respiratory distress syndrome (ARDS) due to 2019 novel coronavirus SNOMED Code(s): 546739405 Code(s): U07.1 - COVID-19; J80 - ACUTE RESPIRATORY DISTRESS SYNDROME Status: Acute - My Orders Last 24 Hours: My Active Orders 04/27/20 15:00 Norepinephrine [Levophed] 16 mg Dextrose 5% in Water 234 ml IV TITRATE 04/27/20 19:45 Calcium Acetate [PhosLo] 667 mg PO Q6HR 04/27/20 21:00 Insulin Glarg,Human.Rec.Analog [LantUS] 30 unit SUBCUT BEDTIME - Assessment Assessment:: April 19, 2020 -day of admission 84-year-old male with increasing weakness and new onset atrial fibrillation. - Increasing weakness over the last week with shortness of breath. - Ventricular rate is controlled in the 70s. - On no rate controlling medications. Positive d-dimer - D-dimer 7.15 - Possible VTE versus pulmonary embolism - Significant renal dysfunction making CTA relatively contraindicated Elevated proBNP - proBNP 838 - No history of heart failure or hypertension - Pulmonary exam shows wheezes without rales or crackles - Chest x-ray shows a normal heart size and lungs are clear - Patient is on furosemide 40 mg daily per history for unknown reason Hypoxemia - History of smoking with tobacco cessation approximately 35 years ago. 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 - Likely 1 of the causes of his increasing weakness over the last week. - On exam patient did breathe with pursed lips. - Requiring 2-3 L nasal cannula. Acute renal injury - I do not have old records available to me, but emergency department provider stated that his records from [place] showed a creatinine of 1.2-1.8 - Likely multifactorial including prerenal disease - Possibly artificially increasing proBNP and d-dimer - Started on IV fluids in the emergency department Thrombocytopenia unknown cause - Patient states he does not know of any history of having low platelets - Platelets on admission 65,000 Significant concern for pulmonary embolism - Patient does have hypoxemia with shortness of breath and a positive d-dimer. - CTA was not done in the emergency department because of concerns of worsening his renal insufficiency Type 2 diabetes - On oral meds including metformin and glimepiride - Patient states morning blood sugars are usually in the low 100s April 20, 2020 Patient with worsening hypoxemia overnight requiring high flow nasal cannula. CTA of the chest done because of worsening hypoxemia. No pulmonary embolism. Findings consistent with posterior bibasilar atelectasis but difficult to completely exclude small areas of pneumonia. Interstitial changes most likely representing fibrosis. Atelectasis most likely cause of hypoxemia. He has had a low-grade temp of 100.0, but white count is normal. Atelectasis can cause a low-grade temperature. Atrial fibrillation -patient had episode of hemoptysis with heparin. Platelet count is dropping. Ventricular rate has been controlled in the 60s and 70s. Acute renal injury is improving, but did receive IV contrast. Estimated GFR in creased to 30 and creatinine decreased to 2.1 Bilateral lower extremity Dopplers were negative for DVT. Elevated d-dimer does not appear to be secondary to clinically significant VTE or pulmonary embolism. Thrombocytopenia -platelets decreased from 65,000-51,000. Type 2 diabetes -blood sugars ranging from 76-170s. Hemoglobin A1c 7.8. April 21, 2020 Hypoxemic respiratory failure likely secondary to atelectasis and possible underlying pneumonia - T-max 99.8 - WBC 3.86 - Procalcitonin 0.27 - He tolerated CPAP overnight and is tolerating high flow nasal cannula. Paroxysmal atrial fibrillation - Patient's rate is back into the 60s and 70s. - Continue to monitor on telemetry. Acute renal injury - Mild improvement in renal function with creatinine of 2.1 and GFR of 30. - No worsening after CTA with contrast Thrombocytopenia -platelets 55,000, stable. Type 2 diabetes -blood sugars stable in the mid 100s April 22, 2020 Hypoxemic respiratory failure secondary to atelectasis and possible underlying pneumonia - T-max 100.6 - WBC decreased to 3.38 - Currently on Rocephin and azithromycin - Oxygenation improving. Currently on high flow nasal cannula with FiO2 at 60% at 30 L. Paroxysmal atrial fibrillation with episodes of sinus versus ectopic atrial bradycardia into the 40s - Patient is asymptomatic without chest pain, increasing shortness of breath, or dizziness. - Unable to anticoagulate secondary to thrombocytopenia - Echocardiogram done today Acute renal injury -improving - Estimated GFR 36, creatinine 1.8, BUN 35 Thrombocytopenia - Platelets stable at 55,000 - No spontaneous bruising or bleeding Type 2 diabetes - Well controlled blood sugars - Fingerstick blood sugars before each meal and bed OVERNIGHT - Initially called by nursing at approximately 1730 secondary to a fever of 102.8. - Subsequent lab work was obtained and a COVID screen was repeated and reported positive - Continued to be on hi-flow at 30L at 60% FiO2, Sat 93% - No beds available at [facility] - Dexamethasone 6mg IV x 1 dose April 23, 2020 Called [facility] [place] and Remdesivir was sent here--> patient started on it Labs - WBC down from 4.08 to 3.89 - Lymphocytes down from 490 to 260 - K up from 4.7 to 5.2 - GFR down from 36 to 34 - LDH 393 - Total CK 359 - CRP 15.2 - Glu 98-161 VS trend - BP 119-131/36-91 - Tmax 102.7 - HR 31-63x' - SatO2 > 87% on 60-80% O2Sat drops significantly when patient is supine and improves upon proning Not wanting to eat a lot, states he just has no taste Repeat procalcitonin every 48 h Day 3 of Rocephin and Azithromycin Started Lovenox full dose for anticoagulation Started on nutritional supplement by dietary April 24, 2020 Continues to require high flow oxygen, flow was decreased due to epistaxis episode but that dropped O2 for which it was brought back up Labs - WBC up from 3.89 to 4.89 - Plt up from 67 to 97 - DD down from 9.29 to 7.59 - K down from 5.2 to 5 - GFR stable at 34 - Calcium up from 7.9 to 8.3 - Ferritin up from 907 to 1,528 - LDH down from 393 to 384 - Procalcitonin up from 0.27 on 04/20 to 0.47 on 04/23 - With no change in kidney function antibiotics are likely not working for which regimen is being changed - Glucose POC 181-359 Blood cultures 12/22 negative at day 2 VS trend - MAP 78-98 - HR 53-69 - Tmax 97.7 Glargine 12u q/bedtime Discontinue Rocephin and Azithromycin Start Levaquin and Zosyn Vancomycin to be started if MRSA PCR is positive Continue Remdesivir day 2 Continue full dose Lovenox Oximetry improves significantly, will continue to prone patient as much as tolerated April 25, 2020 Still on high flow, now at 100% which keeps his O2sat at 91% VS trend - BP 107-128/55-84 - HR 58-70x' - Tmax 97.7 - SatO2 > 91% I/Os - UO 2,200 - 24h balance -970 - Balance since admin is +6,818 Labs - WBC up from 4.89 to 9.24 - Platelets up from 97 to 141 - DD down from 7.59 to 4.92 - GFR down from 34 to 25 - LDH up from 384 to 445 - CRP down from 15.2 (04/23) to 7.9 - Procalcitonin 0.47 to 0.46 - AB.34/50.6/62/26.3 - PaO2/FiO2 ratio: 62, compatible with severe ARDS Blood cultures 4/4 negative at day 3 MRSA negative PLAN: - Continue nutritional supplement - Increase Lasix to 20mg IV BID - Glargine 15u q/bedtime - Continue Levaquin and Zosyn day 2, ATB day 5 - Continue Remdesivir day 3, to complete 5 days - Start Tocilizumab x 2 doses April 26, 2020 Still on high flow nasal cannula at 100% with 50L Oxygenation in low 90's while prone VS trend - MAP 64-91 - Tmax 98.9 - HR 66-92 - SatO2> 87% I/Os - UO: 2,000 - Balance 24h: + 560 - Balance since admission +7,378 Labs - WBC down from 9.24-7.91 - Platelets up from 141-183 - Sodium up from 140-247 - Potassium down from 5.1-4.7 - GFR down from 25-19 - LDH up from 445-556 - CRP down from 7.9-5.7 - Troponins 0.07 - Glucose trend 204-370 - Blood cultures from admission finalized as negative - Plan Plan:: BY SYSTEMS: Neurology: Minimize central acting medications as possible. Frequent neurologic exams by nursing staff. Respiratory: Pronation as tolerated Continue high flow nasal cannula Goal O2 between 92-96% Remdesivir day 3, to complete 5 days Maximum isolation Cardiovascular: Continuous cardiac monitoring Atropine for bradycardia MAP goal > 65 F/U echocardiogram result GI and Nutrition: Carb consistent diet PRN bowel regimen Dietary f/u Continue nutritional supplement Kidney and Electrolytes: Strict intake and output monitoring Maintain neutral as possible. Medications to be dosed according to renal function. Endocrine: Scheduled Accu-checks before meals and 2h PC Hypoglycemia protocol in place. Increase glargine 20u q/bedtime Infectious Disease: Continue Levaquin and Zosyn day 3 Continue Remdesivir day 4 Continue Tocilizumab #2 dose Procalcitonin every 48 hrs Trend temperature and panculture if febrile Hematology and Coagulation: Discontinue Lovenox and aspirin due to active bleeding No coagulopathy to correct, no need to transfuse blood products at the moment. Goal hemoglobin >7g Musculoskeletal and Skin: Bed turn rotation by nursing staff. Daily evaluation for pressure ulcers. PROPHYLAXIS DVT- compression stockings GI- not indicated CODE STATUS: FULL CODE DISPOSITION: Patient will remain in the ICU on high flow nasal cannula, Remdesivir, maximum isolation and Tocilizumab.
[2020-04-28] MEDS ORDERED: Insulin Lispro 100 Units/ML 3 ML Vial SUBCUT ONE (11:52)
[2020-04-28] MEDS ORDERED: Insulin Glarg,Human.Rec.Analog 100 Unit/ML SUBCUT ONE (11:52)
[2020-04-28] MEDS ORDERED: Morphine 2 MG/ML SYRINGE ONE ×2 (13:44→15:05)
[2020-04-28] MEDS: Morphine 2 MG/ML SYRINGE IVPUSH PRN ×6 (14:45→15:23)
[2020-04-28] MEDS ORDERED: Morphine 4 MG/ML Syringe IVPUSH PRN (14:58)
--- NOTE | 2020-05-04 17:46 | PCM.DCSUM1 ---
Discharge Summary - Hospital Course HPI Initial Comments: 84-year-old male who started developing weakness and shortness of breath approximately 1 week ago presents the emergency department with increasing weakness. Earlier this week he started having difficulty with ambulation per his . Patient states that on Wednesday he lost his balance and fell. Since Wednesday or Wednesday he has had a poor oral intake and has not been drinking or eating as much. He states he usually gets up twice a night to urinate and did not get up last night to urinate. Patient also states he usually drinks 2 beers a day but his last alcoholic beverage was 6 days ago. 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 Patient denies any chest pain or cough. He stopped tobacco 35 years ago. He has no history of atrial fibrillation. He did require oxygen following his CVA in 2010. In the emergency department patient was found to be in atrial fibrillation with a ventricular rate in the 70s. CT of the head showed possible small subacute infarct within the right posterior parietal region. A subsequent MRI of the brain and MRA showed no acute diffusion abnormalities. Old infarct was noted within the upper right parietal region. No evidence to suggest acute or subacute infarct. A1 segments show mild atheromatous irregularity and slight narrowing on the left side. In the emergency department: Blood pressure was 124/68 with respiratory rate of 20 and a pulse of 75. Pulse ox was also noted to be 86% on presentation. Initial labs: WBC 4.47, hemoglobin 15.2, platelet count 65,000. PT 11.1, INR 1.02, APTT 28. Sodium 141, potassium 4.6, chloride 103, bicarb 27, anion gap 15.6, BUN 39, creatinine 2.5, estimated GFR 25, troponin I less than 0.017, albumin 3.3. Diagnosis: Stroke: No - Discharge Data Discharge Date: 04/28/20 Discharge Disposition: 20 Preliminary Cause of *Q: Respiratory Failure Condition: Good - Referral to Home Health Primary Care Physician: Tr Jones MD - Discharge Diagnosis/Problem(s) (1) COVID-19 SNOMED Code(s): 392982829 ICD Code: U07.1 - COVID-19 Status: Acute (2) Lymphopenia associated with COVID-19 SNOMED Code(s): 373896171 ICD Code: U07.1 - COVID-19; D72.810 - LYMPHOCYTOPENIA Status: Acute (3) Acute kidney injury SNOMED Code(s): 57884937, 97256303 ICD Code: N17.9 - ACUTE KIDNEY FAILURE, UNSPECIFIED Status: Acute (4) Hyperkalemia SNOMED Code(s): 77561307 ICD Code: E87.5 - HYPERKALEMIA Status: Acute (5) Acute hypoxemic respiratory failure SNOMED Code(s): 208569062 ICD Code: J96.01 - ACUTE RESPIRATORY FAILURE WITH HYPOXIA Status: Acute (6) New onset atrial fibrillation SNOMED Code(s): 45872675 ICD Code: I48.91 - UNSPECIFIED ATRIAL FIBRILLATION Status: Acute (7) Pneumonia SNOMED Code(s): 751561935 ICD Code: J18.9 - PNEUMONIA, UNSPECIFIED ORGANISM Status: Acute (8) Weakness SNOMED Code(s): 22517356 ICD Code: R53.1 - WEAKNESS Status: Acute (9) Diabetes mellitus SNOMED Code(s): 31410982 ICD Code: E11.9 - TYPE 2 DIABETES MELLITUS WITHOUT COMPLICATIONS Status: Acute (10) Ex-smoker SNOMED Code(s): 1297947 ICD Code: Z87.891 - PERSONAL HISTORY OF NICOTINE DEPENDENCE Status: Acute (11) Thrombocytopenia SNOMED Code(s): 464492931 ICD Code: D69.6 - THROMBOCYTOPENIA, UNSPECIFIED Status: Acute (12) Hypocalcemia SNOMED Code(s): 0723424 ICD Code: E83.51 - HYPOCALCEMIA Status: Acute (13) Sinus bradycardia SNOMED Code(s): 77476009 ICD Code: R00.1 - BRADYCARDIA, UNSPECIFIED Status: Acute (14) Mild epistaxis SNOMED Code(s): 272930746 ICD Code: R04.0 - EPISTAXIS Status: Acute (15) Pneumonia due to 2019 novel coronavirus SNOMED Code(s): 496301251 ICD Code: U07.1 - COVID-19; J12.89 - OTHER VIRAL PNEUMONIA Status: Acute (16) Acute respiratory distress syndrome (ARDS) due to 2019 novel coronavirus SNOMED Code(s): 435814252 ICD Code: U07.1 - COVID-19; J80 - ACUTE RESPIRATORY DISTRESS SYNDROME Status: Acute (17) Hyperphosphatemia SNOMED Code(s): 25148770 ICD Code: E83.39 - OTHER DISORDERS OF PHOSPHORUS METABOLISM Status: Acute (18) Leukocytosis SNOMED Code(s): 090533680, 690538516 ICD Code: D72.829 - ELEVATED WHITE BLOOD CELL COUNT, UNSPECIFIED Status: Phylicia cute (19) Acute on chronic renal insufficiency SNOMED Code(s): 435288009 ICD Code: N28.9 - DISORDER OF KIDNEY AND URETER, UNSPECIFIED; N18.9 - CHRONIC KIDNEY DISEASE, UNSPECIFIED Status: Acute (20) Healthcare associated bacterial pneumonia SNOMED Code(s): 833668081 ICD Code: J15.9 - UNSPECIFIED BACTERIAL PNEUMONIA Status: Acute - Patient Summary/Data Hospital Course: April 19, 2020 -day of admission 84-year-old male with increasing weakness and new onset atrial fibrillation. - Increasing weakness over the last week with shortness of breath. - Ventricular rate is controlled in the 70s. - On no rate controlling medications. Positive d-dimer - D-dimer 7.15 - Possible VTE versus pulmonary embolism - Significant renal dysfunction making CTA relatively contraindicated Elevated proBNP - proBNP 838 - No history of heart failure or hypertension - Pulmonary exam shows wheezes without rales or crackles - Chest x-ray shows a normal heart size and lungs are clear - Patient is on furosemide 40 mg daily per history for unknown reason Hypoxemia - History of smoking with tobacco cessation approximately 35 years ago. 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 - Likely 1 of the causes of his increasing weakness over the last week. - On exam patient did breathe with pursed lips. - Requiring 2-3 L nasal cannula. Acute renal injury - I do not have old records available to me, but emergency department provider stated that his records from [place] showed a creatinine of 1.2-1.8 - Likely multifactorial including prerenal disease - Possibly artificially increasing proBNP and d-dimer - Started on IV fluids in the emergency department Thrombocytopenia unknown cause - Patient states he does not know of any history of having low platelets - Platelets on admission 65,000 Significant concern for pulmonary embolism - Patient does have hypoxemia with shortness of breath and a positive d-dimer. - CTA was not done in the emergency department because of concerns of worsening his renal insufficiency Type 2 diabetes - On oral meds including metformin and glimepiride - Patient states morning blood sugars are usually in the low 100s April 20, 2020 Patient with worsening hypoxemia overnight requiring high flow nasal cannula. CTA of the chest done because of worsening hypoxemia. No pulmonary embolism. Findings consistent with posterior bibasilar atelectasis but difficult to completely exclude small areas of pneumonia. Interstitial changes most likely representing fibrosis. Atelectasis most likely cause of hypoxemia. He has had a low-grade temp of 100.0, but white count is normal. Atelectasis can cause a low-grade temperature. Atrial fibrillation -patient had episode of hemoptysis with heparin. Platelet count is dropping. Ventricular rate has been controlled in the 60s and 70s. Acute renal injury is improving, but did receive IV contrast. Estimated GFR increased to 30 and creatinine decreased to 2.1 Bilateral lower extremity Dopplers were negative for DVT. Elevated d-dimer does not appear to be secondary to clinically significant VTE or pulmonary embolism. Thrombocytopenia -platelets decreased from 65,000-51,000. Type 2 diabetes -blood sugars ranging from 76-170s. Hemoglobin A1c 7.8. April 21, 2020 Hypoxemic respiratory failure likely secondary to atelectasis and possible underlying pneumonia - T-max 99.8 - WBC 3.86 - Procalcitonin 0.27 - He tolerated CPAP overnight and is tolerating high flow nasal cannula. Paroxysmal atrial fibrillation - Patient's rate is back into the 60s and 70s. - Continue to monitor on telemetry. Acute renal injury - Mild improvement in renal function with creatinine of 2.1 and GFR of 30. - No worsening after CTA with contrast Thrombocytopenia -platelets 55,000, stable. Type 2 diabetes -blood sugars stable in the mid 100s April 22, 2020 Hypoxemic respiratory failure secondary to atelectasis and possible underlying pneumonia - T-max 100.6 - WBC decreased to 3.38 - Currently on Rocephin and azithromycin - Oxygenation improving. Currently on high flow nasal cannula with FiO2 at 60% at 30 L. Paroxysmal atrial fibrillation with episodes of sinus versus ectopic atrial bradycardia into the 40s - Patient is asymptomatic without chest pain, increasing shortness of breath, or dizziness. - Unable to anticoagulate secondary to thrombocytopenia - Echocardiogram done today Acute renal injury -improving - Estimated GFR 36, creatinine 1.8, BUN 35 Thrombocytopenia - Platelets stable at 55,000 - No spontaneous bruising or bleeding Type 2 diabetes - Well controlled blood sugars - Fingerstick blood sugars before each meal and bed OVERNIGHT - Initially called by nursing at approximately 1730 secondary to a fever of 102.8. - Subsequent lab work was obtained and a COVID screen was repeated and reported positive - Continued to be on hi-flow at 30L at 60% FiO2, Sat 93% - No beds available at [place] - Dexamethasone 6mg IV x 1 dose April 23, 2020 Called [facility] of health and Remdesivir was sent here--> patient started on it Labs - WBC down from 4.08 to 3.89 - Lymphocytes down from 490 to 260 - K up from 4.7 to 5.2 - GFR down from 36 to 34 - LDH 393 - Total CK 359 - CRP 15.2 - Glu 98-161 VS trend - BP 119-131/36-91 - Tmax 102.7 - HR 31-63x' - SatO2 > 87% on 60-80% O2Sat drops significantly when patient is supine and improves upon proning Not wanting to eat a lot, states he just has no taste Repeat procalcitonin every 48 h Day 3 of Rocephin and Azithromycin Started Lovenox full dose for anticoagulation Started on nutritional supplement by dietary April 24, 2020 Continues to require high flow oxygen, flow was decreased due to epistaxis episode but that dropped O2 for which it was brought back up Labs - WBC up from 3.89 to 4.89 - Plt up from 67 to 97 - DD down from 9.29 to 7.59 - K down from 5.2 to 5 - GFR stable at 34 - Calcium up from 7.9 to 8.3 - Ferritin up from 907 to 1,528 - LDH down from 393 to 384 - Procalcitonin up from 0.27 on 04/20 to 0.47 on 04/23 - With no change in kidney function antibiotics are likely not working for which regimen is being changed - Glucose POC 181-359 Blood cultures / negative at day 2 VS trend - MAP 78-98 - HR 53-69 - Tmax 97.7 Glargine 12u q/bedtime Discontinue Rocephin and Azithromycin Start Levaquin and Zosyn Vancomycin to be started if MRSA PCR is positive Continue Remdesivir day 2 Continue full dose Lovenox Oximetry improves significantly, will continue to prone patient as much as tolerated April 25, 2020 Still on high flow, now at 100% which keeps his O2sat at 91% VS trend - BP 107-128/55-84 - HR 58-70x' - Tmax 97.7 - SatO2 > 91% I/Os - UO 2,200 - 24h balance -970 - Balance since admin is +6,818 Labs - WBC up from 4.89 to 9.24 - Platelets up from 97 to 141 - DD down from 7.59 to 4.92 - GFR down from 34 to 25 - LDH up from 384 to 445 - CRP down from 15.2 (8/4) to 7.9 - Procalcitonin 0.47 to 0.46 - AB.34/50.6/62/26.3 - PaO2/FiO2 ratio: 62, compatible with severe ARDS Blood cultures 4/4 negative at day 3 MRSA negative PLAN: - Continue nutritional supplement - Increase Lasix to 20mg IV BID - Glargine 15u q/bedtime - Continue Levaquin and Zosyn day 2, ATB day 5 - Continue Remdesivir day 3, to complete 5 days - Start Tocilizumab x 2 doses April 26, 2020 Still on high flow nasal cannula at 100% with 50L Oxygenation in low 90's while prone VS trend - MAP 64-91 - Tmax 98.9 - HR 66-92 - SatO2> 87% I/Os - UO: 2,000 - Balance 24h: + 560 - Balance since admission +7,378 Labs - WBC down from 9.24-7.91 - Platelets up from 141-183 - Sodium up from 140-247 - Potassium down from 5.1-4.7 - GFR down from 25-19 - LDH up from 445-556 - CRP down from 7.9-5.7 - Troponins 0.07 - Glucose trend 204-370 - Blood cultures from admission finalized as negative PLAN: F/U echocardiogram result Increase glargine 20u q/bedtime Continue Levaquin and Zosyn day 3 Continue Remdesivir day 4 Continue Tocilizumab #2 dose Oxygenation continued to worsen down to 70s Decision was made to intubate Started Levophed April 27, 2020 VS trend: - MAP trend: 76-115 - HR trend: 67-102 - Temp: 96.8-97.8 - SatO2: >78% I/Os: - UO: 3,325 - 24h balance: -2,025 New results: - WBC up from 7.91 to 9.39 - D-Dimer down from 5.09 to 4.59 - Na down from 147 to 142 - K up from 4.7 to 5.8 - GFR down from 19 to 14 - PO4 up from 2.8 to 6.5 - LDH down from 556 to 470 - Trop down from 0.07 to 0.047 - CRP down from 5.7 to 3.7 PLAN - Continue sedation with Fentanyl and Versed - Pronation at least 12h/ day - Continue mechanical ventilation - Goal O2 between 92-96% - Levophed drip - MAP goal > 65 - F/U echocardiogram result - NPO - OG tube care - OG at intermittent suction - Increase glargine 30u q/bedtime - Continue Levaquin and Zosyn day 3 - Continue Remdesivir day 4 - Continue Tocilizumab #2 dose - Procalcitonin every 48 hrs - Discontinue Lovenox and aspirin due to active bleeding April 28, 2020 Discussion was had with family regarding poor outcome Patient's family was adamant that these would not be patient's wishes Decision was made to contact rest of family and withdraw care once all available Sedation was turned off at 8:10AM Please refer to nurse Mishra's note for specifics on timeline for care withdrawal Patient pronounced at 15:26 with family connected via video call - Discharge Plan *PRESCRIPTION DRUG MONITORING PROGRAM REVIEWED*: Not Applicable *COPY OF PRESCRIPTION DRUG MONITORING REPORT IN PATIENT YUNIOR: Not Applicable Home Medications: Home Meds Aspirin [Aspir 81] 81 mg PO DAILY 04/19/20 [History] Furosemide 40 mg PO DAILY 04/19/20 [History] Glimepiride 2 mg PO DAILY 04/19/20 [History] Oxybutynin 5 mg PO DAILY 04/19/20 [History] atorvaSTATin [Lipitor] 40 mg PO BEDTIME 04/19/20 [History] metFORMIN [Glucophage] 500 mg PO BIDMEALS 04/19/20 [History] - Discharge Summary/Plan Comment DC Time >30 min.: No Discharge Operative/Procedures - Procedures Performed Arterial Line Indication: other (access to reduce staff exposure) CL Indication: IV access
== END 2020-04-28 17:40 | disposition expired | DRG 208 ==
LOC: JD.ED 13:16 → JD.MS 18:27 → OBSVTOIN 04-20 08:22 → JD.MS 04-23 00:11 → JD.ICU 04-23 09:29
PROVIDERS: ADMIT Family Medicine; ATTEND Family Medicine
PROC: 8E0ZXY6 Isolation (ICD-10-PCS; principal; 2020-04-21)
PROC: 093K7ZZ Control Bleeding in Nasal Mucosa and Soft Tissue, Via Natural or Artificial Opening (ICD-10-PCS; 2020-04-24)
PROC: 03HB33Z Insertion of Infusion Device into Right Radial Artery, Percutaneous Approach (ICD-10-PCS; 2020-04-24)
PROC: 4A133B1 Monitoring of Arterial Pressure, Peripheral, Percutaneous Approach (ICD-10-PCS; 2020-04-25)
PROC: 4A133J1 Monitoring of Arterial Pulse, Peripheral, Percutaneous Approach (ICD-10-PCS; 2020-04-25)
PROC: 02HV33Z Insertion of Infusion Device into Superior Vena Cava, Percutaneous Approach (ICD-10-PCS; 2020-04-25)
PROC: 5A1945Z Respiratory Ventilation, 24-96 Consecutive Hours (ICD-10-PCS; 2020-04-26)
PROC: 0BH17EZ Insertion of Endotracheal Airway into Trachea, Via Natural or Artificial Opening (ICD-10-PCS; 2020-04-26)
DX: R53.1 Weakness (principal); U07.1 COVID-19; J96.01 Acute respiratory failure with hypoxia; N18.9 Chronic kidney disease, unspecified; J12.89 Other viral pneumonia; N17.9 Acute kidney failure, unspecified; I69.392 Facial weakness following cerebral infarction; R04.2 Hemoptysis; J98.11 Atelectasis; I69.354 Hemiplegia and hemiparesis following cerebral infarction affecting left non-dominant side; I47.2 Ventricular tachycardia; H54.7 Unspecified visual loss; Z66 Do not resuscitate; Z20.828 Contact with and (suspected) exposure to other viral communicable diseases; E11.9 Type 2 diabetes mellitus without complications; D69.6 Thrombocytopenia, unspecified; R79.1 Abnormal coagulation profile; R79.89 Other specified abnormal findings of blood chemistry; M21.372 Foot drop, left foot; R32 Unspecified urinary incontinence; R74.8 Abnormal levels of other serum enzymes; I48.0 Paroxysmal atrial fibrillation; E87.5 Hyperkalemia; E83.51 Hypocalcemia; R04.0 Epistaxis; D72.810 Lymphocytopenia; Z98.49 Cataract extraction status, unspecified eye; Z79.82 Long term (current) use of aspirin; Z79.899 Other long term (current) drug therapy; Z87.891 Personal history of nicotine dependence; Z79.84 Long term (current) use of oral hypoglycemic drugs; Z99.81 Dependence on supplemental oxygen; Z98.890 Other specified postprocedural states
CPT/HCPCS: 36415 ×2; 70450; 70544; 70551; 71045; 80053 ×2; 80061; 81001; 82962 ×3; 83036; 83735; 83880; 84145; 84443; 84484; 85025 ×2; 85379; 85610; 85730 ×3; 87899; 93005; 94640 ×2; 94760; 96361 ×3; 96365; 96366; 99285; G0378 ×3; J1644 ×2; J7120 ×2; U0002; 31500; 36556; 36569; 36600; 51702; 71275; 71275-26; 73502-26-LT; 73502-LT; 74018; 74018-26; 80048; 82550; 82728; 82803; 82947; 83605; 83615; 84100; 85007; 85027; 86140; 87040; 87641; 93010; 93306; 93970; 93970-26; 94002; 94003; 94660; 94667; 94761; 96360; 97110-GP; 97163-GP; 97530-GP; 99220; 99232; 99233; 99238; 99284; A9270-GY; C9113; J0330; J0456; J0696; J1100; J1200; J1650; J1815-GY; J1940; J1956; J2001; J2250; J2270; J2405; J2543; J3010; J3262; J3490; J7050; J7060; J7620-GY; Q9967